=== PATIENT | female | born 1945 | race Caucasian/White ===

== ENCOUNTER 2019-07-30 14:57 | Emergency (ER) | payer MEDICARE, BC, SELFPAY ==
--- NOTE | ~2019-07-30 | XR_ITS ---
EXAMINATION: XR hip LT min 3V w AP pelvis DATE: 07/30/2019 16:41 INDICATION: Generalized left hip pain TECHNIQUE: Anteroposterior view of the pelvis and anteroposterior, frog leg and cross-table lateral v iews of the left hip were obtained. COMPARISON: None. FINDINGS: Alignment is normal. No fracture or suspected avascular necrosis. Bilateral hip joint spaces are norm al. Minimal bilateral sacroiliac osteoarthritis. Anastomotic suture line in the right lower quadrant of the abdomen and several surgical clips in the right pelvis. A few phleboliths in the right hemipel vis. IMPRESSION: 1. Negative left hip. No acute osseous abnormality. Reviewed, dictated and finalized at location A. EL HELPER
--- NOTE | ~2019-07-30 | XR_ITS ---
EXAMINATION: XR knee LT min 4V DATE: 07/30/2019 16:41 INDICATION: Generalized left knee pain TECHNIQUE: Anteroposterior, 2 oblique and crosstable lateral views of the left knee were obtained COMPARISON: 05/28/2015 FINDINGS: Alignment is normal. No fracture. Left knee joint spaces appear normal on nonweightbearing imaging. No joint effusion/layering lipohemarthrosis. Soft tissues are unremarkable. IMPRESSION: 1. Negative left knee radiographs. Reviewed, dictated and finalized at location A. SORTER
--- NOTE | ~2019-07-30 | CT_ITS ---
EXAMINATION: CT lumbar spine wo con DATE: 07/30/2019 16:31 INDICATION: Low back pain post twisting injury. Sharp left leg pain. TECHNIQUE: Computed tomography (CT) of the lumbar spine was performed without intravenous contrast. A utomated exposure control and iterative reconstruction technique were employed. The dose-length produ ct was 370.27 mGy-cm. COMPARISON: None FINDINGS: Mild lumbar dextrocurvature. 2 mm anterolisthesis L4 on L5. Vertebral body heights are normal. No fra cture. Mild to moderate right-sided predominant disc height loss at L4-L5. Mild disc height loss at L 1-L2. Surgical clips along the anterior margin of the right psoas muscle. Paravertebral soft tissues are unremarkable. The following disc levels are specifically discussed: T11-T12: The disc does not extend beyond the endplate margin. There is normal bilateral facet joint o steoarthritis. There is no neural foraminal stenosis. There is no central canal stenosis. T12-L1: Disc is minimally bulging. There is mild bilateral facet joint osteoarthritis. There is no ne ural foraminal stenosis. There is no central canal stenosis. L1-L2: Disc is bulging. There is mild bilateral facet joint osteoarthritis. There is mild bilateral n eural foraminal stenosis. There is mild central canal stenosis. L2-L3: Disc is bulging. There is mild bilateral facet joint osteoarthritis. There is mild bilateral n eural foraminal stenosis. There is mild central canal stenosis. L3-L4: Disc is bulging. There is hypertrophy of the ligamentum flavum. There is mild bilateral facet joint osteoarthritis. There is moderate left and mild right neural foraminal stenosis. There is moder ate central canal stenosis. L4-L5: Disc is bulging There is hypertrophy of the ligamentum flavum. There is severe left and modera te right facet joint osteoarthritis. There is moderate bilateral neural foraminal stenosis. There is moderate to severe central canal stenosis. L5-S1: Disc is bulging. There is mild right and moderate left facet joint osteoarthritis. There is mi ld bilateral neural foraminal stenosis. There is minimal central canal stenosis. IMPRESSION: 1. Moderate lumbar spondylosis. No acute osseous abnormality. Reviewed, dictated and finalized at location A. 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
[2019-07-30 15:01] VITALS: BP 175/82; PULSE 100; RESP 18; TEMP 37.1; O2SAT 100
[2019-07-30] MEDS: ACETAMINOPHEN 500 MG TABLET 1000 MG PO (16:42)
--- NOTE | 2019-07-30 17:08 | ED.LOWEXIN ---
HPI - Extremity Injury (Lower) General Chief Complaint: Extremity Injury, Lower Stated Complaint: think meseret got a pinched nerve Time Seen by Provider: 07/30/19 15:23 Source: patient Mode of arrival: ambulatory Limitations: no limitations History of Present Illness HPI Narrative: This is a 73 year old female that presents to the ER for low back pain x 2 days. Unsure of any certain injury or trauma. Reports she did slip on a rug yesterday, but caught herself and did not fall. Reports the pain radiates down her left leg. Also reports pain in her left hip and left knee. Denies hitting her head, loss of consciousness, decreased ROM, weakness, numbness, or bowel/bladder incontinence. Related Data Home Medications Medication Instructions Recorded Confirmed budesonide PO 07/30/19 lorazepam 07/30/19 omeprazole 07/30/19 oxycodone-acetaminophen 07/30/19 ranitidine HCl 07/30/19 Allergies Allergy/AdvReac Type Severity Reaction Status Date / Time leflunomide Allergy Intermediate HAND Verified 07/30/19 15:04 NUMBNESS Penicillins Allergy Mild HIVES Verified 07/30/19 15:04 adalimumab Allergy Unknown RASH Verified 07/30/19 15:04 azathioprine Allergy Unknown PANCREATITI Verified 07/30/19 15:04 S mercaptopurine Allergy Unknown Blister Verified 07/30/19 16:22 methotrexate Allergy Unknown Hives Verified 07/30/19 16:22 dexamethasone Allergy Swelling Verified 07/30/19 15:45 embrel Allergy Anaphylactic Uncoded 07/30/19 15:45 Shock Review of Systems Review of Systems: Narrative: CONSTITUTIONAL: Denies fever SKIN: Denies rash MUSCULOSKELETAL: Reports back pain, joint pain, and myalgia. NEUROLOGIC: Denies numbness, or weakness. All systems reviewed & are unremarkable except as noted in HPI and below PMFSH Past Medical History Medical History (Updated 07/30/19 @ 17:28 by Gina Grant PA-C) History of Crohn's disease History of hypertension Surgical History Surgical History (Updated 07/30/19 @ 17:17 by Gina Grant PA-C) History of appendectomy History of bilateral tubal ligation Social History Social History (Updated 07/30/19 @ 17:17 by Gina Grant PA-C) Smoking status: Current every day smoker Substance use: never Exam Narrative: Exam Narrative: GENERAL: Well-appearing, well-nourished, and in no acute distress. HEAD: Normocephalic, atraumatic. EYES: EOMI. CHEST: Clear to auscultation. No respiratory distress. No wheezes rales or rhonchi HEART: Regular rate and rhythm. No murmur heard. Normal peripheral pulses. BACK: No midline spinal tenderness EXTREMITIES: Normal range of motion. No edema. Strength equal in bilateral lower extremities (5/5). Normal patellar reflexes bilaterally SKIN: Warm, dry, no rash. NEURO: No focal deficits. Alert and oriented x3. Normal gait PSYCH: Normal mood and affect Course Vital Signs Vital signs: Vital Signs Temperature 98.8 F 07/30/19 15:01 Pulse Rate 100 07/30/19 15:01 Respiratory Rate 18 07/30/19 15:01 Blood Pressure 175/82 H 07/30/19 15:01 Pulse Oximetry 100 07/30/19 15:01 Temperature 98.8 F 07/30/19 15:01 Pulse Rate 100 07/30/19 15:01 Respiratory Rate 18 07/30/19 15:01 Blood Pressure 175/82 H 07/30/19 15:01 Pulse Oximetry 100 07/30/19 15:01 MDM - Extremity Injury (Lower) MDM Narrative Medical decision making narrative: Patient presents the emergency department for low back pain, left hip pain, left knee pain. Reports a possible injury yesterday slipping on her rug. Left hip and pelvis x-ray without acute changes. Left knee x-ray without acute changes. Lumbar spine CT shows moderate lumbar spondylosis, no acute osseous abnormality. Patient does report a history of chronic low back pain for which she takes oxycodone at home. She is neurologically intact. She was instructed to continue her medications as prescribed and follow up with her PCP. She was given warnings to return to the ER Imaging Data Rad
[2019-07-30 17:21] VITALS: TEMP 37.1
== END 2019-07-30 17:37 | disposition home or self-care (01) ==
PROVIDERS: Emergency Provider Emergency Medicine; PCP Family Medicine Adolescent Medicine
DX: M25.552 Pain in left hip (principal); M25.562 Pain in left knee; G89.29 Other chronic pain; M54.5 Low back pain; I10 Essential (primary) hypertension; K50.90 Crohn's disease, unspecified, without complications; F17.200 Nicotine dependence, unspecified, uncomplicated; M47.816 Spondylosis without myelopathy or radiculopathy, lumbar region
CPT/HCPCS: 72131; 73502; 73564; 96372; 99284; A9270; J3360

== ENCOUNTER 2019-08-31 09:57 | Outpatient (CLI) | payer MEDICARE, BC, SELFPAY ==
--- NOTE | ~2019-08-31 | MR_ITS ---
EXAMINATION: MR knee LT wo con DATE: 08/31/2019 11:23 INDICATION: Acute left knee pain. TECHNIQUE: Magnetic resonance imaging (MRI) of the left knee was performed without intravenous contra st. Sequences included axial PD-weighted FS FSE, coronal PD-weighted FSE and PD-weighted FS FSE, sagi ttal PD-weighted FSE, and sagittal T2-weighted FS FSE. COMPARISON: Left knee radiographs 08/31/2019 FINDINGS: Medial compartment: Medial meniscus is normal. Medial compartment cartilage is normal. There is a 9 mm lesion of increase d T2-weighted signal intensity in posterolateral tibial condyle abutting the cartilage that may be a subchondral cyst or intraosseous ganglion. Lateral compartment: Lateral meniscus is normal. Lateral compartment cartilage is normal. Patellofemoral compartment: There is shallow partial-thickness cartilage loss of patellar medial facet with mild subchondral adalgisa a-like marrow signal intensity. There is cartilage surface irregularity of patellar lateral facet. Tr ochlear cartilage is normal. Ligaments and tendons: The anterior and posterior cruciate ligaments are normal. Medial collateral ligament and lateral nasra ateral ligament complex are normal. Patellar tendon is normal. Fluid: There is a small knee joint effusion. There is a small Perry's cyst. There is mild prepatellar and del castillo perficial infrapatellar bursitis. IMPRESSION: 1. Mild patellar chondrosis. 2. Small knee joint effusion. 3. Small Perry's cyst. Reviewed, dictated and finalized at location A.
--- NOTE | ~2019-08-31 | MR_ITS ---
EXAMINATION: MR lumbar spine wo [facility] EXAM DATE: 08/31/2019 11:21 INDICATION: Acute left knee pain, back pain with sciatica. TECHNIQUE: Multi-sequential, multiplanar MR images of the lumbar spine were obtained without contrast . Sagittal T1, T2, T2 fat saturation images. Axial T2 weighted images. There is no prior study for comparison. FINDINGS: There is mild to moderate disc disease L1-2, L2-3 and L4-5, mild at L3-4 and L5-S1. The con us medullaris terminates at the L1/2 level and has normal signal intensity and morphology. Vertebral body heights are maintained. There are no suspicious marrow signal abnormalities. Paraspinal soft ti ssue is unremarkable. There is 2 to 3 mm anterolisthesis L4 on L5. Level by level evaluation: T12-L1: Disc does not extend beyond the endplate margin. Facet arthropathy: Minimal. Neural foraminal stenosis: No stenosis. Central canal stenosis: No stenosis. L1-L2: There is a mild diffuse disc bulge. Facet arthropathy: Mild. Neural foraminal stenosis: No stenosis. Central canal stenosis: No stenosis. L2-L3: There is a mild to moderate diffuse disc bulge. Facet arthropathy: Mild. Neural foraminal stenosis: Mild bilateral. Central canal stenosis: Mild. L3-L4: There is a mild to moderate diffuse disc bulge. Facet arthropathy: Mild to moderate. Neural foraminal stenosis: Mild to moderate left, mild right. Central canal stenosis: Mild to moderate. L4-L5: There is a moderate diffuse disc bulge. Facet arthropathy: Moderate left, mild to moderate right. Neural foraminal stenosis: Moderate bilateral. Central canal stenosis: Moderate. L5-S1: There is a mild diffuse disc bulge. Facet arthropathy: Mild. Neural foraminal stenosis: Mild to moderate bilateral. Central canal stenosis: Mild. IMPRESSION: 1. L4-5 grade 1 anterolisthesis, moderate canal and neural foraminal stenosis. 2. Lesser spondylosis other levels. Reviewed, dictated and finalized at location B.
--- NOTE | ~2019-08-31 | XR_ITS ---
EXAMINATION: XR knee LT 3V DATE: 08/31/2019 11:24 INDICATION: Left knee pain. TECHNIQUE: 3 views of left knee were obtained. COMPARISON: Left knee radiographs 07/30/2019 FINDINGS: Bone alignment is normal. No fracture. Joint spaces are well maintained. There is no knee j oint effusion. IMPRESSION: 1. Normal left knee. Reviewed, dictated and finalized at location A. IMPRESSION: 1. Normal left knee.
--- NOTE | ~2019-08-31 | XR_ITS ---
XR lumbar spine min 4V DATE: 08/31/2019 11:24 INDICATION: Low back pain. Left knee pain. No injury. TECHNIQUE: AP, lateral, coned lateral lumbosacral and bilateral oblique views COMPARISON: 03/18/[address] lumbar spine FINDINGS: Mild dextroscoliosis. Diffuse osteopenia. No fracture or bone destruction is evident. The included lower thoracic and lumbar pedicles are intac t. There is moderate degenerative disease at L1-2, L2-3, L4-5. There is degenerative change at the apophyseal joints with associated grade 1 anterolisthesis at L4-5 . The sacroiliac joints appear normal. Multiple surgical clips and radiopaque bowel sutures overlie the right lower abdomen. IMPRESSION: Degenerative changes Diffuse osteopenia Reviewed, dictated and finalized at location A.
== END 2019-08-31 09:58 | disposition home or self-care (01) ==
PROVIDERS: PCP Family Medicine Adolescent Medicine; Visit Provider Neurological Surgery
DX: M54.9 Dorsalgia, unspecified (principal); M54.30 Sciatica, unspecified side; M25.552 Pain in left hip; M22.2X2 Patellofemoral disorders, left knee; M25.462 Effusion, left knee; M71.22 Synovial cyst of popliteal space [Baker], left knee; M85.88 Other specified disorders of bone density and structure, other site; M43.16 Spondylolisthesis, lumbar region; M48.061 Spinal stenosis, lumbar region without neurogenic claudication; M47.816 Spondylosis without myelopathy or radiculopathy, lumbar region
CPT/HCPCS: 72110; 72148; 73562; 73721

== ENCOUNTER 2020-02-22 14:17 | Outpatient (CLI) | payer MEDICARE, BC, SELFPAY ==
--- NOTE | ~2020-02-22 | XR_ITS ---
EXAMINATION: XR lumbar spine min 4V DATE: 02/22/2020 14:38 INDICATION: Back pain with sciatica TECHNIQUE: Anteroposterior and lateral views in neutral, flexion, extension of the lumbar spine were obtained. COMPARISON: 08/31/2019 FINDINGS: There are 3 mm of anterolisthesis of L4 on L5. No laxity is present with flexion or extensi on. There is unchanged moderate loss of intervertebral disc space height throughout the lumbar spine. No fracture is identified. The vertebral body heights are maintained. Small degenerative osteophytes project from the anterior endplates of multiple vertebral bodies. There is mild facet osteoarthritis of the lower lumbar spine. Surgical clips are present in the right pelvis. Pelvic phleboliths are al so noted. There is calcified atherosclerosis. IMPRESSION: 1. Mild lumbar spondylosis without acute findings or significant interval change. Reviewed, dictated and finalized at location A. IMPRESSION: 1. Mild lumbar spondylosis without acute findings or significant interval miguel duenas
== END 2020-02-22 14:18 | disposition home or self-care (01) ==
LOC: ANHIMG 14:24
PROVIDERS: PCP Family Medicine Adolescent Medicine; Visit Provider Neurological Surgery
DX: M54.30 Sciatica, unspecified side (principal); M47.896 Other spondylosis, lumbar region
CPT/HCPCS: 72110

== ENCOUNTER 2020-03-14 16:00 | Outpatient (CLI) | payer MEDICARE, BC, SELFPAY ==
--- NOTE | ~2020-03-14 | XR_ITS ---
XR hip LT min 2V 03/14/2020 16:38 INDICATION: Left hip pain for 2-3 months PROCEDURE: 3 views left hip COMPARISON: 07/30/2019 FINDINGS: Fracture, dislocation or subluxation is not identified. The soft tissues appear within norm al limits. No foreign bodies are identified. IMPRESSION: 1: NO ACUTE BONE OR JOINT ABNORMALITY IDENTIFIED. Reviewed, dictated and finalized at location A.
== END 2020-03-14 16:01 | disposition home or self-care (01) ==
PROVIDERS: PCP Family Medicine Adolescent Medicine; Visit Provider Family Medicine Adolescent Medicine
DX: M25.552 Pain in left hip (principal)
CPT/HCPCS: 73502

== ENCOUNTER 2020-05-08 13:27 | Outpatient (CLI) | payer MEDICARE, BC, SELFPAY ==
--- NOTE | ~2020-05-08 | MR_ITS ---
EXAMINATION: MR femur LT wo con DATE: 05/08/2020 15:25 INDICATION: Left thigh pain TECHNIQUE: Magnetic resonance imaging (MRI) of the left thigh was performed without intravenous contr ast. Sequences included axial, sagittal and coronal T1-weighted FSE and axial, sagittal and coronal fluid sensitive FSE STIR. The contralateral right thigh is included on the coronal images. COMPARISON: None. FINDINGS: Bone alignment is normal with normal marrow signal throughout. No reactive edema, fracture or patholo gic marrow replacing process. No hip or knee joint effusions on either the left or right. Muscular si gnal appears within normal limits throughout both thighs accounting for some artifact related to like ly field inhomogeneity affects both the signal in the musculature skin and subcutaneous fat at the an terolateral aspect of the mid to distal left thigh. No asymmetric muscular atrophy in either thigh. T he tendons and neurovascular structures in the left thigh appear unremarkable. No abnormal mass or fl uid collections identified. No pathologically enlarged lower pelvic or inguinal lymphadenopathy. Blad mary lou and uterus are unremarkable. IMPRESSION: 1. Unremarkable MRI of the left thigh. No etiology identified for reported left thigh pain. Reviewed, dictated and finalized at location . 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
== END 2020-05-08 13:28 | disposition home or self-care (01) ==
PROVIDERS: PCP Family Medicine Adolescent Medicine
DX: M79.652 Pain in left thigh (principal)
CPT/HCPCS: 73721

== ENCOUNTER 2020-10-02 08:51 | Outpatient (CLI) | payer MEDICARE, BC, SELFPAY | END 2020-10-02 08:52 | disposition home or self-care (01) | LOC: ANHCOVIDVC 08:52 | PROVIDERS: PCP Family Medicine Adolescent Medicine | DX: Z23 Encounter for immunization (principal) | CPT/HCPCS: 0001A; 91300 ==

== ENCOUNTER 2020-10-23 09:05 | Outpatient (CLI) | payer MEDICARE, BC, SELFPAY | END 2020-10-23 09:06 | disposition home or self-care (01) | LOC: ANHCOVIDVC 09:05 | PROVIDERS: PCP Family Medicine Adolescent Medicine | DX: Z23 Encounter for immunization (principal) | CPT/HCPCS: 0002A; 91300 ==

== ENCOUNTER → 2020-11-08 14:07 | Outpatient (CLI) | payer MEDICARE, BC, SELFPAY ==
--- NOTE | ~2020-11-08 | XR_ITS ---
XR hand RT min 3V DATE: 11/08/2020 14:20 INDICATION: Fall. Pain at fourth and fifth digits TECHNIQUE: 3 views of right hand COMPARISON: 02/07/2018 right hand FINDINGS: There is a linear oblique virtually nondisplaced recent fracture at the metaphysis of the f ourth metacarpal bone. Diffuse osteopenia. Osteoarthritic change at the interphalangeal joint of the first digit. No erosive change. No perioste al reaction or bone destruction. IMPRESSION: Fourth metacarpal virtually nondisplaced metaphyseal fracture Reviewed, dictated and finalized at location B.
== END ==
PROVIDERS: PCP Family Medicine Adolescent Medicine; Visit Provider Family Medicine Adolescent Medicine
DX: M79.644 Pain in right finger(s) (principal)
CPT/HCPCS: 73130

== ENCOUNTER 2020-11-09 14:22 | Emergency (ER) | payer MEDICARE, BC, SELFPAY ==
[2020-11-09 14:43] VITALS: BP 167/66; PULSE 81; RESP 12; TEMP 37.3; O2SAT 100
[2020-11-09 14:54] VITALS: BP 167/66; PULSE 81; RESP 12; TEMP 37.3; O2SAT 100
--- NOTE | 2020-11-09 15:08 | ED.UPPEXIN ---
HPI - Extremity Injury (Upper) General Chief Complaint: Extremity Injury, Upper Stated Complaint: R HAND INJURY Time Seen by Provider: 11/09/20 14:57 Source: patient and RN notes reviewed Mode of arrival: ambulatory Limitations: no limitations History of Present Illness HPI narrative: Patient presents today complaining of a right hand injury that occurred yesterday morning at 10 AM. She fell as she was trying to run to the restroom at home after tripping on her carpet. She called her PCPs office, and x-rays were ordered around 1 PM. She is done at [facility], but her PCPs office closed yesterday at 2 PM and she did not receive the results. States her pain is worsening and she wanted to come in today for evaluation. She currently rates her pain 5/10. She has been taking her scheduled Percocet at home with some relief. She is also been heaving the hand wrapped and applying ice. Reports some intermittent tingling in the palm and dorsum of the hand as well. MD complaint: injury to: right and hand Related Data Home Medications Medication Instructions Recorded Confirmed budesonide 3 mg PO DAILY 07/30/19 11/09/20 lorazepam 1 mg PO HS 07/30/19 11/09/20 omeprazole 20 mg PO DAILY 07/30/19 oxycodone-acetaminophen 1 tablet PO QID PRN 07/30/19 11/09/20 ranitidine HCl 150 mg 07/30/19 biotin mcg PO 11/09/20 glucosamine enuc-tlcjq-3-vit E cap PO 11/09/20 lisinopril 11/09/20 Allergies Allergy/AdvReac Type Severity Reaction Status Date / Time leflunomide Allergy Intermediate HAND Verified 11/09/20 14:49 NUMBNESS Penicillins Allergy Mild HIVES Verified 11/09/20 14:49 adalimumab Allergy Unknown RASH Verified 11/09/20 14:49 azathioprine Allergy Unknown PANCREATITI Verified 11/09/20 14:49 S mercaptopurine Allergy Unknown Blister Verified 11/09/20 14:49 methotrexate Allergy Unknown Hives Verified 11/09/20 14:49 dexamethasone Allergy Swelling Verified 11/09/20 14:49 embrel Allergy Anaphylactic Uncoded 11/09/20 14:49 Shock Review of Systems Review of Systems: Narrative: CONSTITUTIONAL: Denies body aches, fever, chills, or sweats. EYES: Denies visual changes, redness, or discharge. ENT: Denies rhinorrhea, congestion, sore throat, or otalgia. CARDIOVASCULAR: Denies chest pain, palpitations, or edema. RESPIRATORY: Denies cough or dyspnea. GASTROINTESTINAL: Denies abdominal pain, nausea, vomiting, or diarrhea. GENITOURINARY: Denies dysuria or hematuria. SKIN: Denies rash, itching, or wounds. MUSCULOSKELETAL: Denies back pain, or myalgia. + Right hand injury NEUROLOGIC: Denies headache, numbness, tingling, or weakness. PSYCH: Denies depression or anxiety. [facility] Past Medical History Medical History (Updated 11/09/20 @ 15:19 by Anabel Vital, [facility], ) History of Crohn's disease History of hypertension Surgical History Surgical History (Updated 07/30/19 @ 17:17 by Gina Grant PA-C) History of appendectomy History of bilateral tubal ligation Social History Social History (Updated 07/30/19 @ 17:17 by Gina Grant PA-C) Smoking status: Current every day smoker Substance use: never Comments At time of signature, I have reviewed and agree with nursing past medical, surgical, social and family history unless otherwise noted. Please see nursing chart for further information. There is no relevant family history pertinent to the presenting complaint Exam Narrative: Exam Narrative: GENERAL: Well-appearing, well-nourished, and in no acute distress. HEAD: Normocephalic, atraumatic. EYES: EOMI. No redness or drainage. Conjunctivae normal. ENT: Mucous membranes pink and moist. NECK: Normal AROM. CHEST: No respiratory distress. EXTREMITIES: Right hand: Mild to moderate ecchymosis to the dorsum of the hand with mild edema. Tenderness overlying the base of metacarpals 3 through 5. Distal sensation intact. Capillary refill normal. Radial pulse normal. No snuffbox tenderness. Limited r
== END 2020-11-09 15:38 | disposition home or self-care (01) ==
PROVIDERS: Emergency Provider Nurse Practitioner; PCP Family Medicine Adolescent Medicine
DX: S62.344A Nondisplaced fracture of base of fourth metacarpal bone, right hand, initial encounter for closed fracture (principal); W18.09XA Striking against other object with subsequent fall, initial encounter; Y93.02 Activity, running; K50.90 Crohn's disease, unspecified, without complications; I10 Essential (primary) hypertension; F17.200 Nicotine dependence, unspecified, uncomplicated
CPT/HCPCS: 29125; 99212; A4565; G0463

== ENCOUNTER → 2020-12-02 14:10 | Outpatient (CLI) | payer MEDICARE, BC, SELFPAY ==
--- NOTE | ~2020-12-02 | XR_ITS ---
XR hand RT min 3V DATE: 12/02/2020 14:55 INDICATION: Fracture of right fourth metacarpal TECHNIQUE: 3 views COMPARISON: 11/08/2020 right hand FINDINGS: There is no interval change in position or alignment at the fracture at the junction of the base and proximal shaft of the fourth metacarpal bone since 11/08/2020. There is mild increased densi ty at the fracture site which may be related to the bone formation and/or mild impaction at the fract ure site. No other fracture or dislocation is evident. Diffuse osteopenia. Osteoarthritic changes are noted at the interphalangeal joint of the first digit and some of the othe r interphalangeal joints. IMPRESSION: No significant change in position or alignment at the fourth metacarpal fracture since ; limited new bone formation Reviewed, dictated and finalized at location A. IMPRESSION: No significant change in position or alignment at the fourth metaca rpal fracture since 11/08/2020; limited new bone formation
== END ==
PROVIDERS: PCP Family Medicine Adolescent Medicine; Visit Provider Family Medicine Adolescent Medicine
DX: S62.304A Unspecified fracture of fourth metacarpal bone, right hand, initial encounter for closed fracture (principal)
CPT/HCPCS: 73130

== ENCOUNTER → 2020-12-11 08:53 | Outpatient (CLI) | payer MEDICARE, BC, SELFPAY ==
--- NOTE | ~2020-12-11 | MM_ITS ---
EXAMINATION: MM diagnostic ani BI w [facility] HISTORY: Right breast lump, diminishing in size following recent fall TECHNIQUE: Additional 3-D tomosynthesis images of were performed and synthetic 2-D images were genera annmarie. CAD analysis was submitted and interpreted. COMPARISON: 04/22/2018, 03/18/2012 BREAST PARENCHYMAL COMPOSITION: There are scattered areas of fibroglandular density. FINDINGS: No suspicious mass or architectural distortion, malignant calcification, skin thickening or retraction or significant new or developing density is detected. IMPRESSION: 1. No mammographic evidence of malignancy 2. Routine mammographic screening is recommended BI-RADS Category 1: Negative Reviewed, dictated and finalized at location A.
== END ==
PROVIDERS: PCP Family Medicine Adolescent Medicine; Visit Provider Family Medicine Adolescent Medicine
DX: N63.15 Unspecified lump in the right breast, overlapping quadrants (principal)
CPT/HCPCS: 77062; 77066; G0279

== ENCOUNTER → 2022-08-25 12:11 | Outpatient (CLI) | payer MEDICARE, BC, SELFPAY ==
--- NOTE | ~2022-08-25 | MM_ITS ---
EXAMINATION: MM screening [facility] BI w [facility] HISTORY: Screening mammogram TECHNIQUE: Craniocaudal and mediolateral oblique 3-D tomosynthesis images were obtained and synthetic 2-D images were generated. CAD analysis was submitted and interpreted. COMPARISON: 12/11/2020, 04/22/2018, 03/18/2012 BREAST PARENCHYMAL COMPOSITION: There are scattered areas of fibroglandular density. FINDINGS: No suspicious mass, calcification, or architectural distortion are identified in either marisa ast to suggest malignancy. There has been no suspicious interval change. IMPRESSION: 1. No mammographic evidence of malignancy. 2. Recommend routine screening mammography in one year. BI-RADS Category 1: Negative Reviewed, dictated and finalized at location A. 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
== END ==
PROVIDERS: PCP Family Medicine Adolescent Medicine; Visit Provider Family Medicine Adolescent Medicine
DX: Z12.31 Encounter for screening mammogram for malignant neoplasm of breast (principal)
CPT/HCPCS: 77063; 77067

== ENCOUNTER 2022-11-11 12:24 | Outpatient (CLI) | payer MEDICARE, BC, SELFPAY ==
--- NOTE | 2022-11-11 12:38 | ECG_ITS ---
Measurements Intervals [place] Rate: 77 P: 56 [place]: 151 QRS: 11 QRSD: 72 T: 52 QT: 349 QTc: 396 Interpretive Statements SINUS RHYTHM WITH SINUS ARRHYTHMIA LOW QRS VOLTAGE IN PRECORDIAL LEADS BASELINE ARTIFACT- I, II, III, AVR, AVL, AVF BORDERLINE ECG NO PREVIOUS ECG AVAILABLE FOR COMPARISON Electronically Signed On 11-11-2022 13:15:55 CDT by Brayden Cheung D.O.
[2022-11-11 13:21] LABS: Hematocrit 39.4 % (37.0-47.0); Hemoglobin 12.4 g/dL (12.0-15.0); Mean Corpuscular HGB Conc 31.5 g/dl (32-36); Mean Corpuscular Hemoglobin 31.6 pg (26-34); Mean Corpuscular Volume 100.5 fl (80-100); Platelet Count Result 421 k/mm3 (150-375); Red Blood Count 3.92 M/mm3 (4.2-5.4); Red Cell Distribution Width 13.3 % (11.5-14.5); White Blood Count 13.1 K/mm3 (4.5-10.0)
[2022-11-11 13:33] LABS: Anion Gap 7 mmol/L (8-16); Blood Urea Nitrogen 5 mg/dL (7-17); Carbon Dioxide 31 mmol/L (22-30); Chloride 100 mmol/L (98-107); Estimated Glomerular Filt Rate > 60; Glucose 92 mg/dL (65-110); Potassium 3.8 mmol/L (3.4-5.0); Sodium 138 mmol/L (137-145)
[2022-11-11 13:34] LABS: Appearance Urine Clear (Clear); Bilirubin Urine Negative (Negative); Blood Urine Negative (Negative); Color Urine Yellow (Yellow); Glucose Urine UA Negative (Negative); Ketones Urine Negative (Negative); Leukocyte Esterase Ur Negative LEU/UL (Negative); Nitrate Urine Negative (Negative); Protein Urine Negative (Negative); Specific Grav Ur 1.004 (1.001-1.035); Urobilinogen Urine 0.2 mg/dL (<2.0)
[2022-11-11 13:36] LABS: Add Urine Microscopic? NO
[2022-11-11 13:39] LABS: INR 0.9
[2022-11-11 13:42] LABS: Partial Thromboplastin Time 29.8 SECONDS (22.3-36.8)
== END 2022-11-11 12:25 | disposition home or self-care (01) ==
LOC: ANHSURGERY 12:27
PROVIDERS: PCP Family Medicine Adolescent Medicine; Visit Provider Neurological Surgery
DX: M48.062 Spinal stenosis, lumbar region with neurogenic claudication (principal); Z01.818 Encounter for other preprocedural examination
CPT/HCPCS: 36415; 80048; 81003; 85027; 85610; 85730; 93005

== ENCOUNTER 2022-11-17 01:48 | Day surgery (SDC) | payer MEDICARE, BC, SELFPAY ==
--- NOTE | 2022-11-06 10:35 | PC.NURSE ---
Report to the Outpatient Waiting Room, entrance under the green pavilion located off [facility], at time ___929____ on date ___11/17/22____. Planned Procedure Time: ___1130 . Time changes happen often and if your time is changed the preop area will call you the afternoon before. - You and your visitor will be asked to self-screen and do not enter if you have any COVID symptoms. - A mask is optional within the hospital at this time. Patients may have clear liquids (water, carbonated beverages, clear teas, apple juice) until 3 hours prior to surgery with a maximum of 20 ounces. - No food from midnight until time of surgery - Infants may have breast milk until 4 hours before surgery, infant formula 6 hours prior to surgery. - Children will be allowed to drink immediately following surgery. If applicable, please bring a bottle or sippy cup to assist with drinking. Juice, water, soda, and popsicles are readily available. For infants on formula, please bring formula the day of surgery. Pacifiers are allowed. Take the following medications with a SIP of water the morning of surgery: ___MAY TAKE OXYCODONE IF NEEDED FOR PAIN DO NOT STOP ANY OF YOUR OTHER PRESCRIPTION MEDICATIONS PRIOR TO SURGERY ?EXCEPT THE FOLLOWING Medications to discontinue per physician ___ALL VITAMINS/SUPPLEMENTS 3 DAYS PRE OP.LAST DOSE 11/13/22 Please no make-up, nail syriac, hairspray, perfume, deodorant, or body powder the day of surgery. No jewelry (including any body piercings) or valuables the day of surgery, leave them at home. Please take a shower or bath the night before, or the morning of, surgery with an antibacterial soap. Wear comfortable, loose fitting clothing. Children are encouraged to wear pajamas. - Jewelry must be removed prior to entering the operating room. Rings and piercings that are not removed may be cut off. - The hospital will not accept responsibility for valuables. - Please leave all valuables, including medications, at home the day of surgery. If you are going home after surgery, a licensed compactor driver must drive you home. - NO public transportation without another adult if you receive anesthesia. - We recommend that an adult stay with you for 24 hours following discharge. - We also recommend that you do not drive, make important decision, drink alcoholic beverages, or take any drugs that were not prescribed by your health care provider for at least 24 hours after your discharge time. For Pediatric surgeries, we recommend two adults accompany the child home. Follow any additional instructions given to you from your surgeon. If you or anyone in your household have experienced Covid symptoms in the past week, please notify your surgeon or the nurse liaison at the phone number below for possible testing. Telephone instructions given to __PATIENT and asked if any additional questions and then verbalized understanding. Patient advised to call surgeon office or pre surgery nurse liaison [phone] if any additional questions.
[2022-11-06 10:47] VITALS: BMI 23.8
[2022-11-17] VITALS (14 sets, daily range): BP systolic 118–168; BP diastolic 40–67; PULSE 67–97; RESP 10–20; TEMP 36.1–37.5; O2SAT 94–100
--- NOTE | ~2022-11-17 | XR_ITS ---
XR fluoroscopy no charge Pain management procedure TECHNIQUE: Fluoroscopy used during foraminotomy performed by [Alonso Riggs MD] on 3. 2 seconds of fluoroscopy with 1 images captured. FINDINGS: Correlate with procedure note. IMPRESSION: Fluoroscopy used during foraminotomy. Reviewed, dictated and finalized at location []
[2022-11-17] MEDS: LACTATED RINGERS 1,000 ML 30 ML IV CONT ×2 (08:45→12:50)
--- NOTE | 2022-11-17 09:26 | WPDANESEPPF ---
Anes - Initial Pre Proc Eval Procedure: Operation Date: 11/17/22 10:00 Proposed Procedures p Right L3-4 Hemilaminectomy, Right L4-5, L5-S1 Far Lateral Foraminotomy - Alonso Riggs MD Date/Time: 11/17/22 09:26 Surgeon: Alonso Riggs MD Pre Op Diagnosis: L3-4,L4-5 stenosis,right L4-5, L5-S1 neural narrow Patient Data Age: 76 Gender: F Height: 1.52 m Weight: 53.45 kg Last Vital Signs Temp 36.1 C L 11/17/22 08:50 Pulse 90 11/17/22 08:50 Resp 20 11/17/22 08:50 BP 154/59 H 11/17/22 08:50 Pulse Ox 98 11/17/22 08:50 O2 Del Method Room Air 11/17/22 08:50 Allergies Allergy/AdvReac Type Severity Reaction Status Date / Time leflunomide Allergy Intermediate HAND Verified 11/06/22 10:25 NUMBNESS Penicillins Allergy Mild HIVES Verified 11/06/22 10:25 adalimumab Allergy Unknown RASH Verified 11/06/22 10:25 azathioprine Allergy Unknown PANCREATITI Verified 11/06/22 10:25 S mercaptopurine Allergy Unknown Blister Verified 11/06/22 10:25 methotrexate Allergy Unknown Hives Verified 11/06/22 10:25 dexamethasone Allergy Swelling Verified 11/06/22 10:25 etanercept [From Enbrel] Allergy Anaphylactic Verified 11/17/22 07:59 Shock atorvastatin AdvReac Intermediate myalgias Verified 11/06/22 10:25 Opioids - Morphine Analogues AdvReac Intermediate Vomiting Verified 11/06/22 10:25 egg AdvReac Abdominal Verified 11/17/22 08:27 Pain Home Medications Medication Instructions Recorded Confirmed Type lorazepam 1 mg tablet 1 mg PO HS #90 tabs 06/29/22 11/17/22 Rx famotidine 10 mg tablet 10 mg PO DAILY 08/03/22 11/17/22 History (Zantac-360 (famotidine)) ddmilnuw-plj-sbpfz acid 200 1 tablet PO DAILY 08/03/22 11/17/22 History mcg-collagen, hydrolyzed 25 mg chew tablet (Women's Multivitamin with Collagen) lisinopril 20 mg tablet 20 mg PO DAILY #90 tabs 10/30/22 11/17/22 Rx oxycodone-acetaminophen 10 mg-325 1 tablet PO Q6H #120 tabs 11/02/22 11/17/22 Rx mg tablet rosuvastatin 5 mg tablet 5 mg PO DAILY #90 tabs 11/05/22 11/17/22 Rx vitamin C 50 mg-biotin 1,250 mcg 1 tablet PO DAILY 11/06/22 11/17/22 History chewable tablet (Oxqx-Sexs-Ahxme (vit C-biotin)) Patient hx anesthesia problems: none Family hx anesthesia problems: none Results Review: All pre-operative results and documents have been reviewed as part of the pre-operative evaluation. [facility] Past Medical History Medical History Abnormal colonoscopy 09/04 ileitis Allergies Arthritis History of Crohn's disease History of hypertension Osteoporosis Skin cancer Surgical History Surgical History History of abdominal surgery Adhesiolysis History of appendectomy (~1956) History of bilateral tubal ligation (~1974) History of partial colectomy (~2010) Family History Family History Father Heart disease Diabetes mellitus Hypertension Heart problem Sibling Acute myocardial infarction Heart disease Social History Social History Social History: Pt has had 3 pregnancies, 1 miscarriage. Date of last mammogram was August of 2022. Recently . Smoking packs per day: 1 Smoking cigarettes per day: 20.0 Years smoked: 30 Smoking pack-years: 30.00 Smoking status: Current every day smoker Tobacco type: cigarettes Second hand tobacco smoke exposure: No Alcohol intake: current Alcohol use details: ONE DRINK PER MONTH Substance use: never Substance use type: does not use Lack of Transportation: No Living arrangements: alone Occupation/Education: retired Gender identity (if verbalized by the patient): Female Sexual Orientation (if Verbalized by the Patient): Straight or Heterosexual Spiritual care concerns: No Agree to blood products: Y
--- NOTE | 2022-11-17 10:19 | PM.IMHP ---
H&P: HPI History of Present Illness Date/Time: 11/17/22 10:19 Chief Complaint: Back and right leg pain Narrative: Izzy is a 76-year-old female with back and right leg pain related to pathology at L3-4, L4-5 and L5-S1 who presents for right L3-4 hemilaminectomy and right L4-5 and L5-S1 far lateral foraminotomies. She has not changed appreciably since we last saw her. She has occasional dermatomal numbness but no specific muscle group weakness. She is not having bowel or bladder difficulty. Review of Systems Review of Systems: Patient denies shortness of breath, cough, fever, chills, nausea, vomiting, weight loss, weight gain, chest pain, dysuria. She has back and leg pain as above. Her review systems is otherwise negative on 12 systems except as noted elsewhere. [facility] Past Medical History Medical History Abnormal colonoscopy 09/04 ileitis Allergies Arthritis History of Crohn's disease History of hypertension Osteoporosis Skin cancer Surgical History Surgical History History of abdominal surgery Adhesiolysis History of appendectomy (~1956) History of bilateral tubal ligation (~1974) History of partial colectomy (~2010) Family History Family History Father Heart disease Diabetes mellitus Hypertension Heart problem Sibling Acute myocardial infarction Heart disease Social History Social History Social History: Pt has had 3 pregnancies, 1 miscarriage. Date of last mammogram was August of 2022. Recently . Smoking packs per day: 1 Smoking cigarettes per day: 20.0 Years smoked: 30 Smoking pack-years: 30.00 Smoking status: Current every day smoker Tobacco type: cigarettes Second hand tobacco smoke exposure: No Alcohol intake: current Alcohol use details: ONE DRINK PER MONTH Substance use: never Substance use type: does not use Lack of Transportation: No Living arrangements: alone Occupation/Education: retired Gender identity (if verbalized by the patient): Female Sexual Orientation (if Verbalized by the Patient): Straight or Heterosexual Spiritual care concerns: No Agree to blood products: Yes Meds Home Medications and Allergies Home Medications Medication Instructions Recorded Confirmed Type lorazepam 1 mg tablet 1 mg PO HS #90 tabs 06/29/22 11/17/22 Rx famotidine 10 mg tablet 10 mg PO DAILY 08/03/22 11/17/22 History (Zantac-360 (famotidine)) lcvhwyoy-hxt-pefpg acid 200 1 tablet PO DAILY 08/03/22 11/17/22 History mcg-collagen, hydrolyzed 25 mg chew tablet (Women's Multivitamin with Collagen) lisinopril 20 mg tablet 20 mg PO DAILY #90 tabs 10/30/22 11/17/22 Rx oxycodone-acetaminophen 10 mg-325 1 tablet PO Q6H #120 tabs 11/02/22 11/17/22 Rx mg tablet rosuvastatin 5 mg tablet 5 mg PO DAILY #90 tabs 11/05/22 11/17/22 Rx vitamin C 50 mg-biotin 1,250 mcg 1 tablet PO DAILY 11/06/22 11/17/22 History chewable tablet (Dpbj-Hufz-Xuehl (vit C-biotin)) Allergies Allergy/AdvReac Type Severity Reaction Status Date / Time leflunomide Allergy Intermediate HAND Verified 11/06/22 10:25 NUMBNESS Penicillins Allergy Mild HIVES Verified 11/06/22 10:25 adalimumab Allergy Unknown RASH Verified 11/06/22 10:25 azathioprine Allergy Unknown PANCREATITI Verified 11/06/22 10:25 S mercaptopurine Allergy Unknown Blister Verified 11/06/22 10:25 methotrexate Allergy Unknown Hives Verified 11/06/22 10:25 dexamethasone Allergy Swelling Verified 11/06/22 10:25 etanercept [From Enbrel] Allergy Anaphylactic Verified 11/17/22 07:59 Shock atorvastatin AdvReac Intermediate myalgias Verified 11/06/22 10:25 Opioids - Morphine Analogues AdvReac Intermediate Vomiting Verified 11/06/22 10:25 egg AdvReac Abdominal Verifi
--- NOTE | 2022-11-17 10:22 | WPDHPUPDATE1 ---
History and Physical Update Update Date/Time: 11/17/22 10:22 History and Physical has been reviewed, including an updated exam of the patient. There are NO changes in the patient's condition. Risks, benefits, and alternatives have been discussed and questions answered. Patient agrees to proceed with procedure.
[2022-11-17] MEDS: ceFAZolin 2 GM/D5W 50 ML 2 GM/50 ML BAG IVPB (10:52)
[2022-11-17] MEDS: LIDO 1%/EPINEPHRINE 1:100,000 20 ML VIAL 10 ML INFILTRATE (11:16)
[2022-11-17] MEDS: fentaNYL CITRATE INJ (*CRX) 100 MCG/2 ML VIAL 25 MCG IV PUSH ×12 (13:07→14:26)
[2022-11-17] MEDS: oxyCODONE/ACETAMINOPHEN (*CRX) 10-325 MG TABLET 1 TAB PO ×2 (14:57→20:51)
[2022-11-17] MEDS: CYCLOBENZAPRINE HCL 5 MG TABLET PO (18:22)
[2022-11-17] MEDS: LORazepam (*CRX) 1 MG TABLET PO (20:54)
[2022-11-18 00:35] VITALS: BP 139/52; PULSE 92; RESP 16; TEMP 37.8; O2SAT 95
[2022-11-18] MEDS: oxyCODONE/ACETAMINOPHEN (*CRX) 10-325 MG TABLET 1 TAB PO ×3 (03:10→11:55)
[2022-11-18 04:03] VITALS: BP 117/49; PULSE 86; RESP 18; TEMP 36.4; O2SAT 97
[2022-11-18 04:08] VITALS: BP 117/49; PULSE 86; RESP 18; TEMP 36.4; O2SAT 97
[2022-11-18] MEDS: lisinopriL 20 MG TABLET PO (08:09)
[2022-11-18] MEDS: FAMOTIDINE 10 MG TABLET PO (08:09)
[2022-11-18] MEDS: THERAPEUTIC MULTIVITAMINS/MINERALS TAB (*BKC) 1 TABLET PO (08:09)
[2022-11-18] MEDS: ROSUVASTATIN 5 MG TABLET PO (08:09)
[2022-11-18 10:00] VITALS: BP 120/58; PULSE 84; RESP 17; TEMP 36.4; O2SAT 98
[2022-11-18] MEDS: CYCLOBENZAPRINE HCL 5 MG TABLET PO (10:15)
[2022-11-18 12:30] VITALS: BP 122/60; PULSE 82; RESP 16; TEMP 36.4; O2SAT 98
--- NOTE | 2022-11-18 13:14 | PC.NURSE ---
Received discharge orders per Dr. Torres. Spoke with her office to clarify if pt needed to be seen by before discharge. They said she didn't need to be seen and patient was okay to be discharged.
--- NOTE | 2022-11-18 13:37 | PCPTNOTE ---
On 11/18/22, the student, [Ana Ross], provided care and completed [facility] documentation on this patient. I have reviewed the student's documentation and agree with the findings.
--- NOTE | 2022-11-18 14:42 | WPDANESPN ---
Anes - Prog Note Post-Op Date/Time: 11/18/22 14:42 Cardiovascular status: normal Respiratory status: normal Airway patency: baseline Mental status: baseline Post-Op hydration status: normal Vital Signs: Last Vital Signs Temp 97.6 F 11/18/22 12:30 Pulse 82 11/18/22 12:30 Resp 16 11/18/22 12:30 BP 122/60 11/18/22 12:30 Pulse Ox 98 11/18/22 12:30 O2 Del Method Room Air 11/18/22 08:36 O2 Flow Rate 10 11/17/22 13:05 Pain Score (VAS): 5 I/O: Intake & Output 11/17/22 11/18/22 11/18/22 23:59 07:59 15:59 Intake Total 120 270 Balance 120 270 Post-procedural complaints: none Patient Feedback: Patient satisfied with anesthetic care.
--- NOTE | 2022-11-24 21:59 | P.OP_ITS ---
Procedure Note - Detailed Date of Procedure 11/17/22 Pre-op Diagnosis L3-4,L4-5 stenosis,right L4-5, L5-S1 neural narrow Post-op Diagnosis Same Procedure Performed Right L3-4 hemilaminectomy and right L4-5 and L5-S1 far lateral foraminotomies Surgeon Alonso Riggs MD Anesthesia General Description of Procedure patient was brought to the operating room in the supine position, was sedated, intubated and placed her general anesthesia routine fashion. She was then turned into the prone position on a Markos frame. The of operation are back was examined, marked for incision, prepped and draped in routine sterile fashion. Incision was marked over the L3 through L5 spinous processes in the midline. This area was injected with 0.5% lidocaine with [id number] epinephrine. Intravenous antibiotics given prior to incision. Incision was made with a 10 blade scalpel down to the lumbodorsal fascia. A subperiosteal dissection muscles soft tissue away from spinous process and lamina on the right from L3-5 was performed with a subperiosteal elevator and Bovie cautery. A verifying x- rays obtained to verify the level of operation. On the right at L3-4 a Midas Rodrigo drill was used to perform a hemilaminectomy and medial facetectomy. Under microscopy the yellow ligament was lifted removed piecemeal using Kerrison punches. Overgrown ligament was lifted and removed using a curved curette and Kerrison punches. This was done until a dental instrument could be placed in the lateral epidural space to confirm lack of compression. On the right at L4-5 and L5-S1 Midas-Rodrigo drill was used to resect the lateral pars and facet until a soft contents of the foramina were encountered. Foraminotomy procedures were performed identically to each level. This was done by lifting the yellow ligament and removing it piecemeal using Kerrison punches. The foramen was palpated using a nerve hook. Kerrison pun ches and curved curettes were used to lift remove additional bone and ligament proximally and distally. The nerve root was then reflected superiorly exposing the ligament below. The ligament was entered with a 11 blade scalpel. An Edy curette, curved curette and Kinney rongeur were used to push through and remove fragments of herniated disc from beneath the nerves. A dental instrument was placed proximally distally to confirm lack of compression. The wound was then copiously irrigated with bacitracin irrigation all bleeding stopped with bipolar and Bovie cautery and Gelfoam thrombin powder. The wound was then closed in layered fashion with 2-0 Vicryl interrupted sutures in the lumbodorsal fascia and Park's layer. 3-0 Vicryl buried interrupted sutures were placed in the dermis and skin was closed with a running 4-0 Monocryl subcuticular stitch and dressed with Dermabond. The patient was then allowed to wake up in the operating room was taken to the recovery room in stable condition. There were no immediate complications of this operation. All counts reported correct in the case. Blood loss was 50 cc. The patient is neurologically at her baseline postoperatively. CPT codes: 61089, 16625 x 2 Estimated Blood Loss -50.0 IV Fluids 1,000 Complications None Condition Stable Disposition PACU [facility] Billing Surgery - Charge Forward: Surgery Billing
== END 2022-11-18 15:20 | disposition home or self-care (01) ==
LOC: ANHSURGERY 08:01 → ANH2MED 14:36
PROVIDERS: PCP Family Medicine Adolescent Medicine; Visit Provider Neurological Surgery
PROC: (CPT 63005; principal; 2022-11-17 10:00)
DX: M48.062 Spinal stenosis, lumbar region with neurogenic claudication (principal); I10 Essential (primary) hypertension; M81.0 Age-related osteoporosis without current pathological fracture; F17.210 Nicotine dependence, cigarettes, uncomplicated
CPT/HCPCS: 63030; 63056; 63057; 36415; 86850; 86900; 86901; 97161; 97165; 97530; 97535; 99199; A9270; J0690; J2250; J2405; J2704; J3010; J7120

== ENCOUNTER 2023-01-06 13:26 | Emergency (ER) | payer MEDICARE, BC, SELFPAY ==
[2023-01-06 13:27] VITALS: BP 123/71; PULSE 109; RESP 20; TEMP 36.6; O2SAT 100
--- NOTE | 2023-01-06 14:27 | ED.WOUNDLAC ---
HPI - Wound/Laceration General Chief Complaint: Wound/Laceration Stated Complaint: sore on right leg Time Seen by Provider: 01/06/23 14:03 History of Present Illness HPI narrative: Patient is a 77-year-old female presenting with a wound. Patient states that approximately 3 weeks ago she cut her right calf on a sharp edge of a lotion bottle. Her PCP started her on clindamycin which she has completed. States that unfortunately the wound remains open and painful. States that sometimes it oozes some blood. States that there is mild surrounding erythema that is unchanged. Denies fevers or chills, numbness, difficulty ambulating, vomiting, or other systemic symptoms. Related Data Home Medications Medication Instructions Recorded Confirmed famotidine 10 mg tablet 10 mg PO DAILY 08/03/22 01/14/23 (Zantac-360 (famotidine)) ztvemwnx-nll-ttjnn acid 200 1 tablet PO DAILY 08/03/22 12/29/22 mcg-collagen, hydrolyzed 25 mg chew tablet (Women's Multivitamin with Collagen) vitamin C 50 mg-biotin 1,250 mcg 1 tablet PO DAILY 11/06/22 12/29/22 chewable tablet (Kkod-Gbfk-Lwkuu (vit C-biotin)) Allergies Allergy/AdvReac Type Severity Reaction Status Date / Time leflunomide Allergy Intermediate HAND Verified 01/14/23 13:10 NUMBNESS Penicillins Allergy Mild HIVES Verified 01/14/23 13:10 adalimumab Allergy Unknown RASH Verified 01/14/23 13:10 azathioprine Allergy Unknown PANCREATITI Verified 01/14/23 13:10 S mercaptopurine Allergy Unknown Blister Verified 01/14/23 13:10 methotrexate Allergy Unknown Hives Verified 01/14/23 13:10 dexamethasone Allergy Swelling Verified 01/14/23 13:10 etanercept [From Enbrel] Allergy Anaphylactic Verified 01/14/23 13:10 Shock atorvastatin AdvReac Intermediate myalgias Verified 01/14/23 13:10 Opioids - Morphine Analogues AdvReac Intermediate Vomiting Verified 01/14/23 13:10 egg AdvReac Abdominal Verified 01/14/23 13:10 Pain Review of Systems Review of Systems: All systems reviewed & are unremarkable except as noted in HPI and below PMFSH Past Medical History Medical History Abnormal colonoscopy 09/04 ileitis Allergies Arthritis History of Crohn's disease History of hypertension Osteoporosis Skin cancer Surgical History Surgical History History of abdominal surgery Adhesiolysis History of appendectomy (~7) History of bilateral tubal ligation (~1974) History of lumbar surgery (11/2022) History of partial colectomy (2010) Status post lumbar spine surgery for decompression of spinal cord Family History Family History Father Heart disease Diabetes mellitus Hypertension Heart problem Sibling Acute myocardial infarction Heart disease Social History Social History Social History: Pt has had 3 pregnancies, 1 miscarriage. Date of last mammogram was August of 2022. Recently . Smoking packs per day: 1 Smoking cigarettes per day: 20.0 Years smoked: 30 Smoking pack-years: 30.00 Smoking status: Current every day smoker Second hand tobacco smoke exposure: No Alcohol intake: never Alcohol use details: ONE DRINK PER MONTH Substance use: never Substance use type: does not use Lack of Transportation: No Lack of Food: Never True Current Housing: I Have Housing Concerned About Future Housing: No Difficulty Paying Gas/Electric Bills: No Difficulty Paying for Meds: No Currently Unemployed: No Education: High School Diploma/GED Difficulty w/ Childcare or Family Care: No Living arrangements: alone Occupation/Education: retired Gender identity (if verbalized by the patient): Female Sexual Orientation (if Verbalized by the Patient): Straight or Heterosexual Spiritual care concerns: No Agree
[2023-01-06] MEDS: KETOROLAC 30 MG/ML VIAL (*BKC) IM (14:49)
[2023-01-06 15:07] LABS: Basophils Absolute Auto 0.1 K/mm3 (0.0-0.1); Basophils Percent Auto 0.4 % (0.2-1.2); Eosinophils Absolute Auto 0.2 K/mm3 (0-0.3); Hematocrit 40.7 % (37.0-47.0); Hemoglobin 12.9 g/dL (12.0-15.0); Immature Granulocyte Absolute 0.05 K/mm3 (0.00-0.031); Immature Granulocyte Percent A 0.3 % (0-0.5); Lymphocytes Absolute Auto 2.48 K/mm3 (0.9-3.2); Mean Corpuscular HGB Conc 31.7 g/dl (32-36); Mean Corpuscular Hemoglobin 31.2 pg (26-34); Mean Corpuscular Volume 98.5 fl (80-100); Mean Platelet Volume 8.5 fl (7.4-10.4); Monocytes Absolute Auto 0.7 K/mm3 (0.1-0.6); Monocytes Percent Auto 5.1 % (2.6-8.5); Neutrophils Absolute Auto 11.1 K/mm3 (1.3-6.7); Neutrophils Percent Auto 76.2 % (45.5-73.1); Platelet Count Result 508 k/mm3 (150-375); Red Blood Count 4.13 M/mm3 (4.2-5.4); Red Cell Distribution Width 14.3 % (11.5-14.5); White Blood Count 14.6 K/mm3 (4.5-10.0)
[2023-01-06 15:19] LABS: Anion Gap 6 mmol/L (8-16); Blood Urea Nitrogen 7 mg/dL (7-17); Calcium 9.3 mg/dL (8.4-10.2); Carbon Dioxide 31 mmol/L (22-30); Chloride 101 mmol/L (98-107); Estimated CRCL calculation 37 ml/min; Estimated Glomerular Filt Rate > 60; Glucose 106 mg/dL (65-110); Sodium 138 mmol/L (137-145)
[2023-01-06 15:42] LABS: Erythrocyte Sedimentation Rate 19 mm/hr (0-20)
[2023-01-06] MEDS: CEPHALEXIN 500 MG CAPSULE PO (17:02)
== END 2023-01-06 17:10 | disposition home or self-care (01) ==
PROVIDERS: Emergency Provider Emergency Medicine; PCP Family Medicine Adolescent Medicine
DX: S81.811A Laceration without foreign body, right lower leg, initial encounter (principal); K50.90 Crohn's disease, unspecified, without complications; I10 Essential (primary) hypertension; M19.90 Unspecified osteoarthritis, unspecified site; M81.0 Age-related osteoporosis without current pathological fracture; F17.210 Nicotine dependence, cigarettes, uncomplicated; Z85.828 Personal history of other malignant neoplasm of skin; Z90.49 Acquired absence of other specified parts of digestive tract; W26.8XXA Contact with other sharp object(s), not elsewhere classified, initial encounter
CPT/HCPCS: 36415; 80048; 85025; 85652; 86140; 96372; 99283; A9270; J1885

== ENCOUNTER 2023-02-19 07:17 | Outpatient (RCR) | payer MEDICARE, BC, SELFPAY ==
[2023-01-14 12:15] VITALS: BMI 23.4
[2023-01-14 13:00] VITALS: BMI 23.4
== END 2023-03-25 13:46 | disposition home or self-care (01) ==
LOC: ANHWOC 07:17
PROVIDERS: PCP Family Medicine Adolescent Medicine; Visit Provider Family Medicine Adolescent Medicine
DX: S81.811D Laceration without foreign body, right lower leg, subsequent encounter (principal)
CPT/HCPCS: 99212; 99213; G0463

== ENCOUNTER → 2023-03-12 10:43 | Outpatient (CLI) | payer MEDICARE, BC, SELFPAY ==
--- NOTE | ~2023-03-12 | XR_ITS ---
Clinical Indication: Cough PA and lateral views of the chest: Comparison: 04/22/2018 Findings: Minimal right pleural effusion probably present. Left lung clear. Cardiomediastinal silhoue tte is within normal limits. Bones and soft tissues are unremarkable. Impression: Minimal right pleural effusion. Reviewed, dictated and finalized at [facility]. Impression: Minimal right pleural effusion.
== END ==
PROVIDERS: PCP Family Medicine Adolescent Medicine; Visit Provider Family Medicine Adolescent Medicine
DX: R05.9 Cough, unspecified (principal); J90 Pleural effusion, not elsewhere classified
CPT/HCPCS: 71046

== ENCOUNTER 2023-03-24 09:41 | Outpatient (CLI) | payer MEDICARE, BC, SELFPAY ==
--- NOTE | ~2023-03-24 | XR_ITS ---
[id number] DATE: 03/24/2023 10:16 INDICATION: Fall. Right chest pain. TECHNIQUE: PA chest. 3 views of right ribs. COMPARISON: None FINDINGS: Anterolateral mildly displaced right sixth rib fracture. Cannot exclude minimally displaced anterior right seventh rib fracture. Osteopenia. No pulmonary infiltrate or consolidation or pleural effusion or pneumothorax is detected. Normal heart size. Mild aortic calcification and unfolding. IMPRESSION: Anterolateral right sixth rib fracture, possible anterior right seventh rib fracture No active cardiopulmonary disease Osteopenia Reviewed, dictated and finalized at Location [facility]. Reviewed, dictated and finalized at location B. IMPRESSION: Anterolateral right sixth rib fracture, possible anterior right sev enth rib fracture No active cardiopulmonary disease Osteopenia
== END 2023-03-24 09:42 ==
LOC: MICIMG 09:43
PROVIDERS: PCP Family Medicine Adolescent Medicine; Visit Provider Family Medicine Adolescent Medicine
DX: R07.89 Other chest pain (principal)
CPT/HCPCS: 71101

== ENCOUNTER 2023-05-03 13:58 | Outpatient (CLI) | payer MEDICARE, BC, SELFPAY ==
--- NOTE | ~2023-05-03 | US_ITS ---
EXAMINATION: US arterial ankle brachial ind DATE: 05/03/2023 14:51 INDICATION: Peripheral arterial disease. TECHNIQUE: Segmental pressures and plethysmographic and Doppler waveforms of the brachial and lower e xtremity arteries were obtained. COMPARISON: None. FINDINGS: Right and left brachial artery pressures of 148 mm Hg and 156 mm Hg, respectively, are concordant (no rmal difference <= 30 mmHg). The right ankle-brachial index (SHIVAM) is 1.03 (normal >= 0.9-1.0). The right great toe-brachial index (TBI) is 0.27 (normal >= 0.65). Arterial Doppler waveforms are biphasic at the ankle. The left SHIVAM is 0.69. The left TBI is 0.26. Arterial Doppler waveforms are biphasic at the ankle. IMPRESSION: 1. Normal right SHIVAM, moderately decreased left SHIVAM, and decreased TBIs. Note that ABIs may be overest imated if arteries are calcified. Reviewed, dictated and finalized at location A. RESEARCH ENGINEER IMPRESSION: 1. Normal right SHIVAM, moderately decreased left SHIVAM, and decreased TBIs. Note th at ABIs may be overestimated if arteries are calcified.
== END 2023-05-03 13:59 | disposition home or self-care (01) ==
LOC: ANHIMG 14:00
PROVIDERS: PCP Family Medicine Adolescent Medicine; Visit Provider Family Medicine Adolescent Medicine
DX: I73.9 Peripheral vascular disease, unspecified (principal)
CPT/HCPCS: 93922

== ENCOUNTER 2023-05-20 21:53 | Inpatient (IN) | payer MEDICARE, BC, SELFPAY ==
--- NOTE | ~2023-05-20 | XR_ITS ---
EXAMINATION: XR chest 2V DATE: 05/20/2023 22:13 INDICATION: 2-3 days of intermittent chest pain TECHNIQUE: PA and lateral views of the chest were obtained. COMPARISON: Chest radiograph dated 03/12/2023 FINDINGS: The lungs are clear with no focal airspace opacities, pulmonary edema, pleural effusion or pneumothor ax. The cardiomediastinal silhouette is normal. Mild thoracic kyphosis. IMPRESSION: 1. No acute cardiopulmonary disease. Reviewed, dictated and finalized at location A. [facility] [employer]
--- NOTE | 2023-05-20 21:55 | ECG_ITS ---
Measurements Intervals [place] Rate: 82 P: 57 [place]: 153 QRS: 32 QRSD: 79 T: 78 QT: 355 QTc: 417 Interpretive Statements SINUS RHYTHM ST-T WAVE ABNORMALITY IN HIGH LATERAL LEADS- CONSIDER ISCHEMIA BASELINE ARTIFACT- I, II, III ABNORMAL ECG COMPARED TO ECG 11/11/2022 12:54:56 ST (T WAVE) DEVIATION NOW PRESENT Electronically Signed On 05-20-2023 22:18:58 FURNITURE REMOVALIST by Brayden Cheung D.O.
[2023-05-20 21:58] VITALS: BP 135/51; PULSE 82; RESP 15; TEMP 36.7; O2SAT 100
[2023-05-20 22:12] LABS: Basophils Absolute Auto 0.1 K/mm3 (0.0-0.1); Basophils Percent Auto 0.4 % (0.2-1.2); Eosinophils Absolute Auto 0.2 K/mm3 (0-0.3); Eosinophils Percent Auto 1.2 % (0-4.4); Hematocrit 39.9 % (37.0-47.0); Hemoglobin 12.5 g/dL (12.0-15.0); Immature Granulocyte Absolute 0.04 K/mm3 (0.00-0.031); Immature Granulocyte Percent A 0.3 % (0-0.5); Lymphocytes Absolute Auto 2.85 K/mm3 (0.9-3.2); Lymphocytes Percent Auto 21.7 % (18.3-44.2); Mean Corpuscular HGB Conc 31.3 g/dl (32-36); Mean Corpuscular Hemoglobin 29.6 pg (26-34); Mean Corpuscular Volume 94.5 fl (80-100); Mean Platelet Volume 8.9 fl (7.4-10.4); Monocytes Absolute Auto 0.8 K/mm3 (0.1-0.6); Monocytes Percent Auto 6.2 % (2.6-8.5); Neutrophils Absolute Auto 9.2 K/mm3 (1.3-6.7); Neutrophils Percent Auto 70.2 % (45.5-73.1); Platelet Count Result 435 k/mm3 (150-375); Red Blood Count 4.22 M/mm3 (4.2-5.4); Red Cell Distribution Width 15.9 % (11.5-14.5); White Blood Count 13.1 K/mm3 (4.5-10.0)
[2023-05-20 22:20] LABS: Alanine Aminotransferase 17 U/L (6-35); Albumin Level 4.1 g/dL (3.5-5.1); Alkaline Phosphatase 118 U/L (38-126); Anion Gap 11 mmol/L (8-16); Aspartate Amino Transferase 23 U/L (14-36); Bilirubin,Total 0.6 mg/dL (0.2-1.3); Blood Urea Nitrogen 7 mg/dL (7-17); Calcium 9.1 mg/dL (8.4-10.2); Carbon Dioxide 23 mmol/L (22-30); Chloride 105 mmol/L (98-107); Estimated CRCL calculation 33 ml/min; Estimated Glomerular Filt Rate > 60; Glucose 120 mg/dL (65-110); Lipase 127 U/L (23-300); Potassium 4.2 mmol/L (3.4-5.0); Sodium 139 mmol/L (137-145)
[2023-05-20 22:24] LABS: INR 0.9; Prothrombin Time 12.7 Seconds (11.1-14.7)
[2023-05-20 22:25] LABS: Partial Thromboplastin Time 29.4 SECONDS (22.3-36.8)
[2023-05-20 22:32] LABS: Troponin I 0.019 ng/mL (0.000-0.034)
[2023-05-21] VITALS (43 sets, daily range): BP systolic 117–162; BP diastolic 45–106; PULSE 59–83; RESP 14–23; TEMP 36–36.6; O2SAT 97–100
--- NOTE | 2023-05-21 | ECHO_ITS ---
Patient Info Name: Izzy Sims Age: 77 years : 1945 Gender: Female Ht: 60 in Wt: 114 lbs BSA: 1.49 m2 HR: 78 bpm BP: 117 / 50 mmHg Technical Quality: Poor Exam Date: 05/21/2023 4:00 PM Exam Location: Echo Lab Exam Room: [facility] Patient Status: Inpatient Admit Date: 05/21/2023 Staff Ordering Physician: Brayden Cheung DO [employer] Truck Driver: Liberty Alfonso RDCS Attending Provider: Maine Ricci MD Referring Physician: Jonatan SCHROEDER; Exam Type: CA echo dop color flow w con Study Info Indications - nstemi chest pain s/p cath Complete two-dimensional, color flow and Doppler transthoracic echocardiogram is performed with contrast to opacify the left ventricle and to improve the deliniation of the left ventricle endocardial borders. Contrast/Agitated Saline Contrast/Ag. Saline: Definity Amount: 2.00 ml Administered By: Liberty Alfonso [facility] Existing IV Access: Yes IV Access Condition: patent with no signs of infiltration Reason for Poor Study: poor echocardiographic windows Summary 1. Technically suboptimal study due to poor sonographic images. 2. Left ventricular chamber dimension is normal. 3. Basal inferior wall is akinetic. 4. Left ventricular systolic function is mildly reduced, estimated at 45-50%. 5. The left ventricular diastolic function is grade I diastolic dysfunction. 6. E/e' 14 is mildly elevated. 7. There is mild aortic valve sclerosis. 8. The mitral valve has mildly calcified annulus. 9. There is trace tricuspid valve regurgitation. 10. No pulmonary hypertension, estimated pulmonary arterial systolic pressure is 27 mmHg. Left Ventricle E/e' 14 is mildly elevated. Basal inferior wall is akinetic. Technically suboptimal study due to poor sonographic images. Left ventricular chamber dimension is normal. Left ventricular systolic function is mildly reduced, estimated at 45-50%. The left ventricular diastolic function is grade I diastolic dysfunction. Right Ventricle Right ventricular chamber dimension is normal. Right ventricular systolic function is normal. Left Atria Left atrial chamber dimension is normal. Right Atria Right atrial chamber dimension is normal. Aortic Valve The aortic valve is not well visualized. Cannot determine number of aortic valve leaflets. There is mild aortic valve sclerosis. There is no aortic valve stenosis. There is no aortic valve regurgitation. Pulmonic Valve There is no pulmonic regurgitation. Mitral Valve The mitral valve has mildly calcified annulus. There is no mitral valve stenosis. There is no mitral valve regurgitation. Tricuspid Valve There is trace tricuspid valve regurgitation. No pulmonary hypertension, estimated pulmonary arterial systolic pressure is 27 mmHg. Pericardium/Pleural There is no pericardial effusion. Inferior Vena Cava Normal inferior vena cava with >50% collapse upon inspiration consistent with normal right atrial pressure, 5 mmHg. Aorta The aortic root size at the sinus of Valsalva is normal. Left Ventricular Outflow Tract Name Value Normal LVOT 2D LVOT Diameter 1.97 cm LVOT Doppler LVOT Peak Gradient 4 mmHg LV
[2023-05-21 02:17] LABS: Troponin I 0.067 ng/mL (0.000-0.034)
--- NOTE | 2023-05-21 02:27 | ED.GENADULT ---
HPI - General Adult General Chief complaint: Chest Pain Stated complaint: chest pain Time Seen by Provider: 05/21/23 02:06 History of Present Illness HPI narrative: patient is a 77-year-old female who presents to emergency department with chief complaint of chest pain. Patient reports over the last several days she has had episodes of tightness in her chest patient states radiates up into her jaw and to her lower back patient states that she did take a baby aspirin prior to arrival and was given 3 more baby aspirin by EMS. The patient reports the pain has essentially resolved at this point. Patient reports she had a cardiac stress test many years ago there has not had a cardiac evaluation since then. Related Data Home Medications Medication Instructions Recorded Confirmed famotidine 10 mg tablet 10 mg PO DAILY 08/03/22 03/24/23 (Zantac-360 (famotidine)) qvchvtaf-rpa-ypzqh acid 200 1 tablet PO DAILY 08/03/22 03/24/23 mcg-collagen, hydrolyzed 25 mg chew tablet (Women's Multivitamin with Collagen) vitamin C 50 mg-biotin 1,250 mcg 1 tablet PO DAILY 11/06/22 03/24/23 chewable tablet (Ikxl-Nhjr-Uojjl (vit C-biotin)) Allergies Allergy/AdvReac Type Severity Reaction Status Date / Time leflunomide Allergy Intermediate HAND Verified 03/24/23 08:45 NUMBNESS Penicillins Allergy Mild HIVES Verified 03/24/23 08:45 adalimumab Allergy Unknown RASH Verified 03/24/23 08:45 azathioprine Allergy Unknown PANCREATITI Verified 03/24/23 08:45 S mercaptopurine Allergy Unknown Blister Verified 03/24/23 08:45 methotrexate Allergy Unknown Hives Verified 03/24/23 08:45 dexamethasone Allergy Swelling Verified 03/24/23 08:45 etanercept [From Enbrel] Allergy Anaphylactic Verified 03/24/23 08:45 Shock atorvastatin AdvReac Intermediate myalgias Verified 03/24/23 08:45 Opioids - Morphine Analogues AdvReac Intermediate Vomiting Verified 03/24/23 08:45 egg AdvReac Abdominal Verified 03/24/23 08:45 Pain Review of Systems Review of Systems: A 10 system review of systems was completed on the patient and is negative except for what is stated in the HPI. Nursing and ancillary documentation was reviewed. [facility] Past Medical History Medical History Abnormal colonoscopy 09/04 ileitis Allergies Arthritis History of Crohn's disease History of hypertension Osteoporosis Skin cancer Surgical History Surgical History History of abdominal surgery Adhesiolysis History of appendectomy (~1956) History of bilateral tubal ligation (~1974) History of lumbar surgery (11/2022) History of partial colectomy (2010) Status post lumbar spine surgery for decompression of spinal cord Family History Family History Father Heart disease Diabetes mellitus Hypertension Heart problem Sibling Acute myocardial infarction Heart disease Social History Social History Social History: Pt has had 3 pregnancies, 1 miscarriage. Date of last mammogram was August of 2022. Recently . Smoking packs per day: 1 Smoking cigarettes per day: 20.0 Years smoked: 30 Smoking pack-years: 30.00 Smoking status: Current every day smoker Second hand tobacco smoke exposure: No Alcohol intake: never Alcohol use details: ONE DRINK PER MONTH Substance use: never Substance use type: does not use Lack of Transportation: No Lack of Food: Never True Current Housing: I Have Housing Concerned About Future Housing: No Difficulty Paying Gas/Electric Bills: No Difficulty Paying for Meds: No Currently Unemployed: No Education: High School Diploma/GED Difficulty w/ Childcare or Family Care: No Living arrangements: alone Occupation/Education: retired Gender iden
[2023-05-21] MEDS: ENOXAPARIN 60 MG/0.6 ML SYRINGE 52 MG SUB-Q (03:17)
[2023-05-21 04:58] LABS: Troponin I 0.082 ng/mL (0.000-0.034)
[2023-05-21] MEDS: ASPIRIN 81 MG CHEWABLE TABLET PO (08:35)
--- NOTE | 2023-05-21 08:45 | PM.CNCAR ---
Assessment and Plan Assessment and plan (1) Chest pain: Code(s): R07.9 - Chest pain, unspecified Status: Acute (2) NSTEMI (non-ST elevated myocardial infarction): Code(s): I21.4 - Non-ST elevation (NSTEMI) myocardial infarction Status: Acute Assessment and Plan: Received aspirin and dose of Lovenox at 3 am. Discontinue Lovenox. On Rosuvastatin. Start Metoprolol Succinate 25 mg daily. Obtain echo. Discuss risks/benefits/alternative to [facility] and she is agreeable to it. Will consult [facility] for it and plan for this afternoon given got dose of Lovenox. (3) Mixed hyperlipidemia: Code(s): E78.2 - Mixed hyperlipidemia Status: Acute Assessment and Plan: On Rosuvastatin. (4) Essential (primary) hypertension: Code(s): I10 - Essential (primary) hypertension Status: Acute Assessment and Plan: Stable. History of Present Illness History of Present Illness Consult date/time: 05/21/23 08:45 Reason For Visit: Chest Pain/Elevated Troponin Narrative: 77 yr old woman presents to ER with chest pain. She has a history of hypertension, dyslipidemia, and Crohn's disease. Reports in last few days she has waxing and waning chest pressure with radiation of pain to jaw and right arm. Currently seen in ER with chest pressure 4/10 pain. Normally she can walk more than 1/4 mile without any problems. Denies sob, orthopnea, PND, edema, dizziness, palpitations. Review of Systems Review of Systems: All systems reviewed & are unremarkable except as noted in HPI and below Constitutional: Constitutional: Reports as per HPI, Denies chills and Denies fever(s) Cardiovascular: Cardiovascular: Reports as per HPI, Reports chest pain and Denies irregular heart rhythm Respiratory: Respiratory: Reports as per HPI and Denies dyspnea Gastrointestinal: Gastrointestinal: Denies abdominal pain Genitourinary: Genitourinary: Reports as per HPI and Denies dysuria Musculoskeletal: Musculoskeletal: Reports as per HPI Neurologic: Reports as per HPI, Denies dizziness and Denies syncope [facility] Past Medical History Medical History Abnormal colonoscopy 09/04 ileitis Allergies Arthritis History of Crohn's disease History of hypertension Osteoporosis Skin cancer Surgical History Surgical History History of abdominal surgery Adhesiolysis History of appendectomy (~1957) History of bilateral tubal ligation (~1974) History of lumbar surgery (11/2022) History of partial colectomy (2010) Status post lumbar spine surgery for decompression of spinal cord Family History Family History Father Heart disease Diabetes mellitus Hypertension Heart problem Sibling Acute myocardial infarction Heart disease Social History Social History Social History: Pt has had 3 pregnancies, 1 miscarriage. Date of last mammogram was August of 2022. Recently . Smoking packs per day: 1 Smoking cigarettes per day: 20.0 Years smoked: 30 Smoking pack-years: 30.00 Smoking status: Current every day smoker Tobacco type: cigarettes Second hand tobacco smoke exposure: No Alcohol intake: never Alcohol use details: ONE DRINK PER MONTH Substance use: never Substance use type: does not use Lack of Transportation: No Lack of Food: Never True Current Housing: I Have Housing Concerned About Future Housing: No Difficulty Paying Gas/Electric Bills: No Difficulty Paying for Meds: No Currently Unemployed: No Education: High School Diploma/GED Difficulty w/ Childcare or Family Care: No Living arrangements: alone Occupation/Education: retired Gender identity (if verbalized by the patient): Female Sexual Orientation (if Verbalized by th
--- NOTE | 2023-05-21 08:53 | PM.IMHP ---
H&P: HPI History of Present Illness Date/Time: 05/21/23 08:53 Chief Complaint: Chest pain Narrative: ?patient is a 77-year-old female who presents to emergency department with chief complaint of chest pain.? Patient reports over the last several days she has had episodes of tightness in her chest patient states radiates up into her jaw and to her lower back patient states that she did take a baby aspirin prior to arrival and was given 3 more baby aspirin by EMS.? The patient reports the pain has essentially resolved at this point.? Patient reports she had a cardiac stress test many years ago there has not had a cardiac evaluation since then. Review of Systems Review of Systems: - CONSTITUTIONAL: Denies weight loss, fever and chills. - HEENT: Denies changes in vision and hearing - RESPIRATORY: Denies SOB and cough. - CV: Denies palpitations and reports CP. - GI: Denies abdominal pain, nausea, vomiting and diarrhea. - : Denies dysuria and urinary frequency. - MSK: Denies myalgia and joint pain. - SKIN: Denies rash and pruritus. - NEUROLOGICAL: Denies headache and syncope. - PSYCHIATRIC: Denies recent changes in mood. Denies anxiety and depression. [facility] Past Medical History Medical History Abnormal colonoscopy 09/04 ileitis Allergies Arthritis History of Crohn's disease History of hypertension Osteoporosis Skin cancer Surgical History Surgical History History of abdominal surgery Adhesiolysis History of appendectomy (~1956) History of bilateral tubal ligation (~1974) History of lumbar surgery (11/2022) History of partial colectomy (2010) Status post lumbar spine surgery for decompression of spinal cord Family History Family History Father Heart disease Diabetes mellitus Hypertension Heart problem Sibling Acute myocardial infarction Heart disease Social History Social History Social History: Pt has had 3 pregnancies, 1 miscarriage. Date of last mammogram was August of 2022. Recently . Smoking packs per day: 1 Smoking cigarettes per day: 20.0 Years smoked: 30 Smoking pack-years: 30.00 Smoking status: Current every day smoker Second hand tobacco smoke exposure: No Alcohol intake: never Alcohol use details: ONE DRINK PER MONTH Substance use: never Substance use type: does not use Lack of Transportation: No Lack of Food: Never True Current Housing: I Have Housing Concerned About Future Housing: No Difficulty Paying Gas/Electric Bills: No Difficulty Paying for Meds: No Currently Unemployed: No Education: High School Diploma/GED Difficulty w/ Childcare or Family Care: No Living arrangements: alone Occupation/Education: retired Gender identity (if verbalized by the patient): Female Sexual Orientation (if Verbalized by the Patient): Straight or Heterosexual Spiritual care concerns: No Agree to blood products: Yes Meds Home Medications and Allergies Home Medications Medication Instructions Recorded Confirmed Type famotidine 10 mg tablet 10 mg PO DAILY 08/03/22 03/24/23 History (Zantac-360 (famotidine)) bjusntmr-ley-hturp acid 200 1 tablet PO DAILY 08/03/22 03/24/23 History mcg-collagen, hydrolyzed 25 mg chew tablet (Women's Multivitamin with Collagen) lisinopril 20 mg tablet 20 mg PO DAILY #90 tabs 10/30/22 03/24/23 Rx vitamin C 50 mg-biotin 1,250 mcg 1 tablet PO DAILY 11/06/22 03/24/23 History chewable tablet (Lsct-Jwzz-Rqloh (vit C-biotin)) cyclobenzaprine 10 mg tablet 10 mg PO TID PRN muscle spasm #30 11/18/22 03/24/23 Rx tabs sennosides 8.6 mg-docusate sodium 1 tab PO HS PRN Constipation 7 11/18/22 03/24/23 Rx 50 mg tablet (Senokot-S) days #30 ta
[2023-05-21 09:24] LABS: Cholesterol 156 mg/dL (0-200); HDL Direct 54 mg/dL; Triglycerides 101 mg/dL (<150)
[2023-05-21 09:35] LABS: LDL Cholesterol Direct 82 mg/dL
--- NOTE | 2023-05-21 09:52 | ADMGEN ---
This patient, Izzy Sims, was admitted to IMU Room 231-01 on 05/21/23 at 0911. Patient/family oriented to hospital policies and general routines including ID bracelet, bed and alarms, visiting hours, pain management, procedures, bathroom and other care routines, personal items, smoking policy, room service/diet, and visiting hours. Information on how to activate the Rapid Response Team has been discussed. Patient/Family are encouraged to report perceived risks to care and to ask questions if they do not understand what they are told or what they should do.
[2023-05-21] MEDS: NITROGLYCERIN SL 0.4 MG TABLET SUBLINGUAL ×3 (10:21→10:42)
[2023-05-21] MEDS: METOPROLOL SUCCINATE EXT REL 25 MG TABCR PO (10:22)
--- NOTE | 2023-05-21 11:57 | WPDMODSED ---
Moderate Sedation Note-Pt Data Patient Data Diagnosis: chest pain/ACS Present Complaint: intermittent chest pain Procedure to be performed/Plan: left heart catheterization Allergies Allergy/AdvReac Type Severity Reaction Status Date / Time leflunomide Allergy Intermediate HAND Verified 03/24/23 08:45 NUMBNESS Penicillins Allergy Mild HIVES Verified 05/21/23 03:23 adalimumab Allergy Unknown RASH Verified 05/21/23 03:23 azathioprine Allergy Unknown PANCREATITI Verified 05/21/23 03:23 S mercaptopurine Allergy Unknown Blister Verified 05/21/23 03:23 methotrexate Allergy Unknown Hives Verified 05/21/23 03:23 dexamethasone Allergy Swelling Verified 05/21/23 03:23 etanercept [From Enbrel] Allergy Anaphylactic Verified 05/21/23 03:23 Shock atorvastatin AdvReac Intermediate myalgias Verified 05/21/23 03:23 Opioids - Morphine Analogues AdvReac Intermediate Vomiting Verified 05/21/23 03:23 Home Medications Medication Instructions Recorded Confirmed Type famotidine 10 mg tablet 10 mg PO DAILY 08/03/22 05/21/23 History (Zantac-360 (famotidine)) pjpezgkq-vbh-ytome acid 200 1 tablet PO DAILY 08/03/22 05/21/23 History mcg-collagen, hydrolyzed 25 mg chew tablet (Women's Multivitamin with Collagen) lisinopril 20 mg tablet 20 mg PO DAILY #90 tabs 10/30/22 05/21/23 Rx vitamin C 50 mg-biotin 1,250 mcg 1 tablet PO DAILY 11/06/22 05/21/23 History chewable tablet (Vdtp-Gzjt-Jxsis (vit C-biotin)) lorazepam 1 mg tablet 1 mg PO HS #90 tabs 04/02/23 05/21/23 Rx rosuvastatin 5 mg tablet See Rx Instructions .Route 04/28/23 05/21/23 Rx .COMPLEX #90 tabs oxycodone 10 mg tablet 10 mg PO QID PRN pain #100 tabs 05/17/23 05/21/23 Rx Current Medications: Active Medications Aspirin (Aspirin 81 Mg Chewable Tablet) 81 mg PO DAILY@0800 [facility] Last Admin: 05/21/23 08:35 Dose: 81 mg Metoprolol Succinate (Metoprolol Succinate Ext Rel 25 Mg Tabcr) 25 mg PO QAM [facility] Last Admin: 05/21/23 10:22 Dose: 25 mg Nitroglycerin (Nitroglycerin Sl 0.4 Mg Tablet) 0.4 mg SUBLINGUAL Q5MIN PRN PRN Reason: Chest Pain Last Admin: 05/21/23 10:42 Dose: 0.4 mg Perflutren Lipid Microsphere (Perflutren Lipid Microspheres 1.5 Ml Vial Diluted To 10 Ml Total Volume) 0 ml IV PUSH ONCE PRN; Protocol PRN Reason: adequate visualization Stop: 05/24/23 08:50 Sedation/Anesthesia: No previous sedation/anesthesia problems (including family history). [facility] Past Medical History Medical History Abnormal colonoscopy 09/04 ileitis Allergies Arthritis History of Crohn's disease History of hypertension Osteoporosis Skin cancer Surgical History Surgical History History of abdominal surgery Adhesiolysis History of appendectomy (~1956) History of bilateral tubal ligation (~1974) History of lumbar surgery (11/2022) History of partial colectomy (2010) Status post lumbar spine surgery for decompression of spinal cord Family History Family History (Updated 05/21/23 @ 10:47 by Loyda Orozco RN) Father Diabetes mellitus Heart disease Heart problem Hypertension Hx of CABG Sibling No problems noted. Social History Social History Social History: Pt has had 3 pregnancies, 1 miscarriage. Date of last mammogram was August of 2022. Recently . Smoking packs per day: 1 Smoking cigarettes per day: 20.0 Years smoked: 30 Smoking pack-years: 30.00 Smoking status: Current every day smoker Tobacco type: cigarettes Second hand tobacco smoke exposure: No Alcohol intake: never Alcohol use details: ONE DRINK PER MONTH Substance use: never Substance use type: does not use Lack of Transportation: No Lack of Food: Never True Current Housing: I Have Housing Concerned About Future Housing: No Diffic
--- NOTE | 2023-05-21 12:44 | ECG_ITS ---
Measurements Intervals [place] Rate: 67 P: 57 IL: 141 QRS: 9 QRSD: 76 T: -50 QT: 440 QTc: 465 Interpretive Statements SINUS RHYTHM MODERATE T-WAVE ABNORMALITY, CONSIDER ANTEROLATERAL ISCHEMIA [-0.1+ mV T WAVE IN V3- V6] MODERATE T-WAVE ABNORMALITY, CONSIDER INFERIOR ISCHEMIA [-0.1+ mV T WAVE IN II/aVF] ABNORMAL ECG COMPARED TO ECG 05/20/2023 22:01:58 NO SIGNIFICANT CHANGES Electronically Signed On 05-22-2023 13:48:13 [employer]ANUT [employer]ANCHER by Gilberto Grant M.D.
--- NOTE | 2023-05-21 12:48 | WPDCARDPROC ---
Cardiac Cath Procedure Note Date of procedure:: 05/21/23 Performing physician:: Malcom Flores MD Indication:: acute coronary syndrome Brief clinical history:: this is a 77-year-old patient without prior history of coronary disease presenting to the hospital with intermittent chest pain. Patient has modest troponin rise indicating evidence of ACS. Angiography was requested by her physician. Procedure Procedure performed:: Left ventriculogram coronary angiogram PCI(SCOTT) to the distal RCA Sedation/Medication given:: fentanyl 50 mg Versed 4 mg case start time 12 11 case end time 12:41 p.m. sedation provided by Mateusz Toth RN, trained observer Access site:: right femoral artery Estimated blood loss:: 30 cc Procedure note:: patient was brought to the cardiac catheterization lab in postabsorptive state where the right femoral triangle was prepared and draped in the normal fashion. Anesthesia was provided with 1% lidocaine infiltrated locally. Using the modified Seldinger technique the femoral artery was punctured and a 5 [place] vascular sheath placed. Following this a 5 [place] angled pigtail catheter was used to perform left ventriculography in the [place]IP[place] projection and to measure left-sided hemodynamics. Following this a standard 5 [place] FL4 catheter was used to engage and inject the left coronary artery in multiple projections. The right coronary artery was engaged and injected using a 5 [place] JR4 catheter. The cineangiograms were then reviewed and PCI of the distal RCA was recommended and carried out as detailed below. Prior to PCI the 5 [place] [employer] sheath was changed oil change technician a guidewire for a 6 [place] sheath. The patient received 600 mg of oral clopidogrel and was anticoagulated with bolus and infusion of Angiomax for this PCI. Following intervention the sheath was sutured into position the patient was taken holding area recovery and sheath removal. She tolerated the procedure well there were no apparent complications. Findings:: Hemodynamics: Central pressure 40 52 left ventricle 40/0 end-diastolic 14 there is no gradient across the aortic valve upon pullback. Left ventricle: The LV is of normal size. The inferior posterior segment is mildly hypodynamic the remainder of the LV contracts well the global ejection fraction is normal At 55-60%. The left main coronary artery is widely patent the left anterior descending is a medium caliber artery extending down to the apex the distal 3rd of the LAD is very small in caliber there is no significant disease in the LAD itself. There is a 80% ostial stenosis of the major septal perforating complex. The circumflex is a small to medium caliber last only 1 marginal branch. There are mild diffuse luminal irregularities in the circumflex but no flow-limiting lesions are seen the right coronary artery is large in caliber and dominant to the posterior circulation. There is a 95% stenosis in the 3rd portion of the RCA which is angiographically somewhat complex and about 10 mm in length. The RPDA and RPL branches are free of significant disease. Intervention: The right coronary artery was engaged using a 6 [place] JR4 guiding catheter. I used a 0.014 BMW coronary guidewire to traverse the target lesion and advanced easily into the distal RPDA. The lesion was then pre-dilated using a 3 x 20 mm Panterra balloon at 8 atmospheres which markedly improved the lesion. The lesion was then stented using a 4 x 22 mm SamEnrico stent deployed 14 atmospheres for 30 seconds with an excellent angiographic result following stent deployment there was no residual stenosis disruption dissection or distal embolization. There was a good step-up step-down in the stented segment indicating very good stent expansion and apposition. Conclusion:: 1. right coronary dominant circulation with coronary artery disease culprit lesion for ACS is 95% stenosis of the 3rd porti
[2023-05-21] MEDS: PERFLUTREN LIPID MICROSPHERES 1.5 ML VIAL DILUTED TO 10 ML TOTAL VOLUME IV PUSH (16:15)
--- NOTE | 2023-05-21 16:33 | IVDEFINITY ---
Prior to administration of IV Definity the patient was educated on the risks and benefits of the imaging enhancing agent including potential adverse side effects. The patient verbalized understanding. Allergies were verified. No exclusion criteria were identified and at least one of the following inclusion criteria were met: 1) physician request, 2) patient technically difficult to image (per the [place] [employer] Echocardi[employer] guidelines of two or more segments not discernable within the apical view), or 3) questionable left ventricular function. ?
[2023-05-21] MEDS: SODIUM CHLORIDE 0.9% IV 1,000 ML 125 ML IV CONT (16:48)
[2023-05-21] MEDS: oxyCODONE HCL (*CRX) 5 MG TAB IR 10 MG PO (18:42)
[2023-05-22] VITALS (10 sets, daily range): BP systolic 118–148; BP diastolic 48–58; PULSE 54–69; RESP 16–18; TEMP 36.4–36.8; O2SAT 97–100
[2023-05-22] MEDS: BENZOCAINE/MENTHOL (*BKC) 18 EA LOZENGE 1 LOZENGE PO (00:25)
[2023-05-22 04:49] LABS: Basophils Absolute Auto 0.1 K/mm3 (0.0-0.1); Basophils Percent Auto 0.6 % (0.2-1.2); Eosinophils Absolute Auto 0.1 K/mm3 (0-0.3); Eosinophils Percent Auto 0.8 % (0-4.4); Hematocrit 36.4 % (37.0-47.0); Hemoglobin 11.3 g/dL (12.0-15.0); Immature Granulocyte Absolute 0.05 K/mm3 (0.00-0.031); Immature Granulocyte Percent A 0.4 % (0-0.5); Lymphocytes Absolute Auto 3.04 K/mm3 (0.9-3.2); Lymphocytes Percent Auto 25.5 % (18.3-44.2); Mean Corpuscular Hemoglobin 29.7 pg (26-34); Mean Corpuscular Volume 95.5 fl (80-100); Mean Platelet Volume 9.3 fl (7.4-10.4); Monocytes Absolute Auto 0.8 K/mm3 (0.1-0.6); Monocytes Percent Auto 6.6 % (2.6-8.5); Neutrophils Absolute Auto 7.9 K/mm3 (1.3-6.7); Neutrophils Percent Auto 66.1 % (45.5-73.1); Platelet Count Result 368 k/mm3 (150-375); Red Blood Count 3.81 M/mm3 (4.2-5.4); Red Cell Distribution Width 15.8 % (11.5-14.5); White Blood Count 11.9 K/mm3 (4.5-10.0)
[2023-05-22 05:11] LABS: Alanine Aminotransferase 13 U/L (6-35); Albumin Level 3.4 g/dL (3.5-5.1); Alkaline Phosphatase 106 U/L (38-126); Anion Gap 8 mmol/L (8-16); Aspartate Amino Transferase 22 U/L (14-36); Bilirubin,Total 1.3 mg/dL (0.2-1.3); Blood Urea Nitrogen 7 mg/dL (7-17); Calcium 8.7 mg/dL (8.4-10.2); Carbon Dioxide 24 mmol/L (22-30); Chloride 107 mmol/L (98-107); Estimated CRCL calculation 39 ml/min; Estimated Glomerular Filt Rate > 60; Glucose 92 mg/dL (65-110); Magnesium 1.7 mg/dL (1.6-2.3); Potassium 3.7 mmol/L (3.4-5.0); Sodium 139 mmol/L (137-145)
--- NOTE | 2023-05-22 05:11 | ECG_ITS ---
Measurements Intervals [place] Rate: 60 P: 52 VT: 151 QRS: 3 QRSD: 73 T: -61 QT: 424 QTc: 426 Interpretive Statements SINUS RHYTHM ST DEVIATION AND MODERATE T-WAVE ABNORMALITY, CONSIDER ANTEROLATERAL ISCHEMIA [-0.1+ mV T WAVE IN V3-V6] ST DEVIATION AND MODERATE T-WAVE ABNORMALITY, CONSIDER INFERIOR ISCHEMIA [-0.1+ mV T WAVE IN II/aVF] ABNORMAL ECG COMPARED TO ECG 05/21/2023 14:41:04 T-WAVE ABNORMALITY MORE PROMINENT Electronically Signed On 05-22-2023 14:09:04 [employer]SEMBLER by Gilberto Grant M.D.
[2023-05-22] MEDS: oxyCODONE HCL (*CRX) 5 MG TAB IR 10 MG PO (06:46)
--- NOTE | 2023-05-22 07:22 | PM.PNCARD ---
Progress Note: A&P Assessment and Plan (1) Chest pain: Code(s): R07.9 - Chest pain, unspecified Status: Acute (2) NSTEMI (non-ST elevated myocardial infarction): Code(s): I21.4 - Non-ST elevation (NSTEMI) myocardial infarction Status: Acute Assessment and Plan: Received aspirin and dose of Lovenox at 3 am. Discontinue Lovenox. Troponin went to .082. On Rosuvastatin. Started aspirin 81 mg daily, Clopidogrel 75 mg daily, and Metoprolol Succinate 25 mg daily. 05/21/23 Echo: EF 45-50%, basal inferior wall is akinetic, diastolic dysfunction (E/e' 14), trace TR. 05/21/23 Dr. Flores [facility]: 3rd portion of RCA with 95% long stenosis, ostial septal branch of LAD with 80% stenosis; PCI to RCA with good results. Discuss results of echo and cath with patient. Advise to continue dual antiplatelets uninterrupted. May d/c home from cardiology standpoint and f/u with me in 1 week. Then will order phase II cardiac rehab. (3) Mixed hyperlipidemia: Code(s): E78.2 - Mixed hyperlipidemia Status: Acute Assessment and Plan: On Rosuvastatin. (4) Essential (primary) hypertension: Code(s): I10 - Essential (primary) hypertension Status: Acute Assessment and Plan: Stable. Subjective Date/time seen: 05/22/23 07:22 Interval history: Denies chest pain or sob. Has some back pain from laying in different bed per patient. Right groin without pain or hematoma. Exam Const: General: cooperative, healthy appearing and comfortable Orientation/consciousness: oriented to person, oriented to place and oriented to time Resp: Auscultation: clear to auscultation bilaterally, no crackles, no rales, no rhonchi and no wheezes Cardio: Rate: regular rate Rhythm: regular rhythm Heart sounds: no murmurs Peripheral pulses: dorsalis pedis present Neuro: General: oriented to person, oriented to place and oriented to time Extrem: Right lower extremity: no edema Left lower extremity: no edema Objective Data Vital Signs Vital Signs: Vital Signs - 24 hr 05/21/23 07:30 05/21/23 07:41 05/21/23 08:02 Temperature Pulse Rate 77 66 64 Pulse Rate [Right Pedal (Dorsalis Pedis)] Respiratory Rate 18 18 16 Blood Pressure 133/106 H 133/53 L Pulse Oximetry 98 100 97 Oxygen Delivery 05/21/23 08:30 05/21/23 09:11 05/21/23 10:22 Temperature 97.4 F L Pulse Rate 83 70 79 Pulse Rate [Right Pedal (Dorsalis Pedis)] Respiratory Rate 19 18 Blood Pressure 117/50 L Pulse Oximetry 99 Oxygen Delivery 05/21/23 09:11 05/21/23 11:45 05/21/23 13:02 Temperature Pulse Rate 65 Pulse Rate [Right Pedal (Dorsalis Pedis)] Respiratory Rate 21 H Blood Pressure 141/62 H Pulse Oximetry 100 Oxygen Delivery Room Air Room Air Room Air 05/21/23 13:15 05/21/23 13:30 05/21/23 13:45 Temperature Pulse Rate 65 67 67 Pulse Rate [Right Pedal (Dorsalis Pedis)] Respiratory Rate 14 14 14 Blood Pressure 127/53 L 128/60 130/56 L Pulse Oximetry 99 99 99 Oxygen Delivery Room Air Room Air Room Air 05/21/23 14:00 05/21/23 14:15 05/21/23 14:30 Temperature Pulse Rate 61 63 61 Pulse Rate [Right Pedal (Dorsalis Pedis)] Respiratory Rate 18 18 18 Blood Pressure 126/55 L 141/56 H 130/67 Pulse Oximetry 98 98 98 Oxygen Delivery Room Air Room Air Room Air 05/21/23 15:30 05/21/23 16:15 05/21/23 10:20 Temperature Pulse Rate 62 64 79 Pulse Rate [Right Pedal (Dorsalis Pedis)] Respiratory Rate 18 19 Blood Pressure 139/60 143/60 H Pulse Oximetry 98 100 Oxygen Delivery Room Air Room Air 05/21/23 14:45 05/21/23 15:00 05/21/23 15:15 Temperature Pulse Rate 61 63 62 Pulse Rate [Right Pedal (Dorsalis Pedis)] Respiratory Rate 16 18 18 Blood Pressure 139/53 L 133/61 148/61 H Pulse Oximetry 98 98 98 Oxygen Delivery Room Air Room Air Room Air 05/21/23 15:45 05/21/23 16:00 05/21/23 16:30 Temperature Pulse Rate 65 66 64 Pulse Rate [Right Pedal (Dorsali
[2023-05-22] MEDS: CLOPIDOGREL BISULFATE 75 MG TABLET PO (09:06)
[2023-05-22] MEDS: METOPROLOL SUCCINATE EXT REL 25 MG TABCR PO (09:06)
[2023-05-22] MEDS: lisinopriL 20 MG TABLET PO (09:06)
[2023-05-22] MEDS: ROSUVASTATIN 10 MG TABLET PO (09:06)
[2023-05-22] MEDS: ASPIRIN 81 MG CHEWABLE TABLET PO (09:06)
--- NOTE | 2023-05-22 12:58 | PM.DS ---
DS: Admitting Diagnosis Discharge Date 05/22/2023 Admitting Diagnosis Chest pain DS: Discharge Diagnosis Discharge Diagnosis (1) NSTEMI (non-ST elevated myocardial infarction): Code(s): I21.4 - Non-ST elevation (NSTEMI) myocardial infarction Status: Acute (2) Chest pain: Code(s): R07.9 - Chest pain, unspecified Status: Acute (3) Elevated troponin: Code(s): R79.89 - Other specified abnormal findings of blood chemistry Status: Acute (4) Osteoporosis: Code(s): M81.0 - Age-related osteoporosis without current pathological fracture Status: Acute DS: Summary Hospital Course Hospital Course: 77-year-old female presented with chest pain suspicious for angina.? EKG with T-wave inversions lateral leads.? EKG 11/10 with no such changes present.? Troponin initial was 0.019 subsequent level at 0.067-0.082.? Diagnosed with non ST elevation DC. chest x-ray with no acute cardiopulmonary disease.? Cardiology has been consulted.? On aspirin and metoprolol added.? Nitroglycerin p.r.n..? Therapeutic-dose Lovenox started and received at 3:00 a.m. Echo and LAC planned as discussed by Cardiology team.? Continue statin. LDL at 86. Echo EF 45-50% basal inferior wall akinetic diastolic dysfunction trace TR. Status post left heart catheterization: 3rd portion of RCA with 95% long stenosis ostial septal branch of LAD with 80% stenosis: PCI to RCA with good results Two all antiplatelet therapy Follow-up with Cardiology LDL not optimal increased rosuvastatin to 10 mg at bedtime Time Spent with Patient Time attestation: Total time spent providing and/or coordinating discharge services: 35 minutes Exam Narrative: GENERAL: The patient is well developed, not in acute distress HEENT: Nonicteric sclerae, PERRLA, EOMI. Oropharynx clear. Moist mucous membranes. Conjunctivae appear well perfused. CHEST: Chest wall is nontender. HEART: Regular rate and rhythm without murmur, rubs, or gallops LUNGS: Clear to auscultation bilaterally. no respiratory distress ABDOMEN: Soft, positive bowel sounds, non-tender, no organomegaly. SKIN: No rash, no excessive bruising, petechiae, or purpura. NEUROLOGIC: Cranial nerves II-XII intact, alert and oriented x 3, no gross motor deficits EXTREMITIES: no edema, cyanosis or clubbing DS: Data Data Completed and Pending Completed studies during hospitalization: Exam Type: ? ? CA echo dop color flow w con Study Info Indications ?? ? - nstemi chest pain s/p cath Complete two-dimensional, color flow and Doppler transthoracic echocardiogram is performed with contrast to opacify the left ventricle and to improve the deliniation of the left ventricle endocardial borders. Account #: ? ? [id number] Contrast/Agitated Saline Contrast/Ag. Saline: ? ? Definity Amount: ? ? 2.00 ml Administered By: ? ? Kaden,? Liberty JON Existing IV Access: ? ? Yes IV Access Condition: ? ? patent with no signs of infiltration Reason for Poor Study: ? ? poor echocardiographic windows Summary ? 1. Technically suboptimal study due to poor sonographic images. ? 2. Left ventricular chamber dimension is normal. ? 3. Basal inferior wall is akinetic. ? 4. Left ventricular systolic function is mildly reduced, estimated at 45-50%. ? 5. The left ventricular diastolic function is grade I diastolic dysfunction. ? 6. E/e' 14 is mildly elevated. ? 7. There is mild aortic valve sclerosis. ? 8. The mitral valve has mildly calcified annulus. ? 9. There is trace tricuspid valve regurgitation. ? 10. No pulmonary hypertension, estimated pulmonary arterial systolic pressure is 27 mmHg. Left Ventricle ? E/e' 14 is mildly elevated. ? Basal inferior wall is akinetic. ? Technically suboptimal study due to poor sonographic images. ? Left ventricular chamber dimension is normal. ? Left ventricular systolic function is mildly reduced, estimated at 45-50%. ? The left ventricular
== END 2023-05-22 14:40 | disposition home or self-care (01) | DRG 322 ==
LOC: ANHED 05-21 02:42 → ANHIMU 05-21 06:26
PROVIDERS: Specialist; Admitting Provider Internal Medicine; Emergency Provider Emergency Medicine; PCP Family Medicine Adolescent Medicine; Visit Provider Internal Medicine
PROC: 4A023N7 Measurement of Cardiac Sampling and Pressure, Left Heart, Percutaneous Approach (ICD-10-PCS; CPT 93452; principal; 2023-05-21 12:00)
PROC: 027034Z Dilation of Coronary Artery, One Artery with Drug-eluting Intraluminal Device, Percutaneous Approach (ICD-10-PCS; 2023-05-21 12:00)
DX: I21.4 Non-ST elevation (NSTEMI) myocardial infarction (principal); K50.90 Crohn's disease, unspecified, without complications; I25.119 Atherosclerotic heart disease of native coronary artery with unspecified angina pectoris; I10 Essential (primary) hypertension; E78.2 Mixed hyperlipidemia; M81.0 Age-related osteoporosis without current pathological fracture; M19.90 Unspecified osteoarthritis, unspecified site; F17.210 Nicotine dependence, cigarettes, uncomplicated
CPT/HCPCS: 36415; 71046; 80053; 80061; 83690; 83735; 84484; 85025; 85610; 85730; 93005; 93458; 96372; 99285; A9270; C1725; C1769; C1874; C1887; C1894; C8929; C9600; G0378; J0583; J1644; J1650; J2250; J2305; J3010; J7030; J7040; Q9957

== ENCOUNTER 2023-06-17 15:00 | Outpatient (RCR) | payer MEDICARE, BC, SELFPAY | END 2023-06-30 15:31 | disposition home or self-care (01) | LOC: ANHCPREHAB 15:00 | PROVIDERS: PCP Family Medicine Adolescent Medicine; Visit Provider Internal Medicine Cardiovascular Disease | DX: Z95.5 Presence of coronary angioplasty implant and graft (principal) | CPT/HCPCS: 93798 ==

== ENCOUNTER 2023-06-18 04:00 | Observation (INO) | payer MEDICARE, BC, SELFPAY ==
[2023-06-18] VITALS (41 sets, daily range): BP systolic 128–166; BP diastolic 47–86; PULSE 51–85; RESP 10–25; TEMP 36.4–36.8; O2SAT 96–100; BMI 22.8
--- NOTE | ~2023-06-18 | XR_ITS ---
EXAMINATION: XR chest 2V DATE: 06/18/2023 04:02 INDICATION: Chest pressure. TECHNIQUE: Frontal and lateral views of the chest were obtained. COMPARISON: Chest 2 views 05/20/2023 FINDINGS: There is no pneumonia, pleural effusion, or pneumothorax. The heart size is normal. IMPRESSION: 1. No acute cardiopulmonary disease. Reviewed, dictated and finalized at location A. PRODUCER
--- NOTE | 2023-06-18 03:34 | ECG_ITS ---
Measurements Intervals [place] Rate: 57 P: 63 NC: 147 QRS: 50 QRSD: 77 T: 40 QT: 396 QTc: 388 Interpretive Statements SINUS BRADYCARDIA NO PREVIOUS ECG AVAILABLE FOR COMPARISON Electronically Signed On 06-18-2023 16:33:28 COBOL PROGRAMMER by Rob Nicole M.D.
[2023-06-18 03:53] LABS: Basophils Percent Auto 0.2 % (0.2-1.2); Eosinophils Absolute Auto 0.1 K/mm3 (0-0.3); Eosinophils Percent Auto 0.4 % (0-4.4); Hematocrit 36.5 % (37.0-47.0); Hemoglobin 11.5 g/dL (12.0-15.0); Immature Granulocyte Absolute 0.04 K/mm3 (0.00-0.031); Immature Granulocyte Percent A 0.3 % (0-0.5); Lymphocytes Absolute Auto 0.93 K/mm3 (0.9-3.2); Lymphocytes Percent Auto 7.8 % (18.3-44.2); Mean Corpuscular HGB Conc 31.5 g/dl (32-36); Mean Corpuscular Hemoglobin 29.5 pg (26-34); Mean Corpuscular Volume 93.6 fl (80-100); Mean Platelet Volume 9.3 fl (7.4-10.4); Monocytes Absolute Auto 0.5 K/mm3 (0.1-0.6); Monocytes Percent Auto 3.9 % (2.6-8.5); Neutrophils Absolute Auto 10.5 K/mm3 (1.3-6.7); Neutrophils Percent Auto 87.4 % (45.5-73.1); Platelet Count Result 335 k/mm3 (150-375); Red Cell Distribution Width 14.2 % (11.5-14.5)
[2023-06-18 04:05] LABS: Prothrombin Time 13.7 Seconds (11.1-14.7)
[2023-06-18] MEDS: NITROGLYCERIN SL 0.4 MG TABLET SUBLINGUAL (04:05)
[2023-06-18] MEDS: fentaNYL CITRATE INJ (*CRX) 100 MCG/2 ML VIAL 25 MCG IV PUSH ×2 (04:05→05:46)
[2023-06-18 04:06] LABS: Partial Thromboplastin Time 33.2 SECONDS (22.3-36.8)
[2023-06-18 04:09] LABS: Alanine Aminotransferase 19 U/L (6-35); Albumin Level 3.7 g/dL (3.5-5.1); Alkaline Phosphatase 118 U/L (38-126); Anion Gap 7 mmol/L (8-16); Aspartate Amino Transferase 29 U/L (14-36); Bilirubin,Total 0.6 mg/dL (0.2-1.3); Blood Urea Nitrogen 7 mg/dL (7-17); Carbon Dioxide 25 mmol/L (22-30); Chloride 104 mmol/L (98-107); Estimated CRCL calculation 48 ml/min; Estimated Glomerular Filt Rate > 60; Glucose 136 mg/dL (65-110); Lipase 59 U/L (23-300); Potassium 4.2 mmol/L (3.4-5.0); Sodium 136 mmol/L (137-145)
[2023-06-18 04:20] LABS: Troponin I < 0.012 ng/mL (0.000-0.034)
--- NOTE | 2023-06-18 05:13 | ED.GENADULT ---
HPI - General Adult General Chief complaint: Chest Pain Stated complaint: CHEST PRESSURE & BACK PAIN History of Present Illness HPI narrative: Patient 77-year-old female who presents emergency department with chief complaint of chest pain. Patient was a him into the hospital the 1st of this month and was found to have a non-STEMI had stent placement by Dr. Miranda the patient has been having some intermittent light discomfort in her chest but this evening had discomfort in her chest they were then was in her back as well the patient reports that the pain was improved with nitroglycerin Related Data Home Medications Medication Instructions Recorded Confirmed famotidine 10 mg tablet 10 mg PO DAILY 08/03/22 05/25/23 (Zantac-360 (famotidine)) vdcwprkd-cih-verge acid 200 1 tablet PO DAILY 08/03/22 05/25/23 mcg-collagen, hydrolyzed 25 mg chew tablet (Women's Multivitamin with Collagen) vitamin C 50 mg-biotin 1,250 mcg 1 tablet PO DAILY 11/06/22 05/25/23 chewable tablet (Bvym-Kuns-Nlupd (vit C-biotin)) Allergies Allergy/AdvReac Type Severity Reaction Status Date / Time leflunomide Allergy Intermediate HAND Verified 06/18/23 03:37 NUMBNESS Penicillins Allergy Mild HIVES Verified 06/18/23 03:37 adalimumab Allergy Unknown RASH Verified 06/18/23 03:37 azathioprine Allergy Unknown PANCREATITI Verified 06/18/23 03:37 S mercaptopurine Allergy Unknown Blister Verified 06/18/23 03:37 methotrexate Allergy Unknown Hives Verified 06/18/23 03:37 dexamethasone Allergy Swelling Verified 06/18/23 03:37 etanercept [From Enbrel] Allergy Anaphylactic Verified 06/18/23 03:37 Shock atorvastatin AdvReac Intermediate myalgias Verified 06/18/23 03:37 Opioids - Morphine Analogues AdvReac Intermediate Vomiting Verified 06/18/23 03:37 Review of Systems Review of Systems: A 10 system review of systems was completed on the patient and is negative except for what is stated in the HPI. Nursing and ancillary documentation was reviewed. [facility] Past Medical History Medical History Abnormal colonoscopy 09/04 ileitis Allergies Arthritis History of Crohn's disease History of hypertension NSTEMI (non-ST elevated myocardial infarction) (05/2023) Osteoporosis Skin cancer Surgical History Surgical History History of abdominal surgery Adhesiolysis History of appendectomy (~1957) History of bilateral tubal ligation (~1974) History of lumbar surgery (11/2022) History of partial colectomy (2010) Status post lumbar spine surgery for decompression of spinal cord Family History Family History Father Diabetes mellitus Heart disease Heart problem Hx of CABG Hypertension Sibling Diabetes mellitus Heart problem Heart disease Social History Social History Social History: Pt has had 3 pregnancies, 1 miscarriage. Date of last mammogram was August of 2022. Recently . Smoking packs per day: 1 Smoking cigarettes per day: 20.0 Years smoked: 30 Smoking pack-years: 30.00 Smoking status: Current every day smoker Tobacco type: cigarettes Second hand tobacco smoke exposure: No Smoking end date: 05/22/23 Additional smoking assessment comments: she has been weaning & cutting back, 50 + years of smoking Alcohol intake: never Alcohol use details: ONE DRINK PER MONTH Substance use: never Substance use type: does not use Lack of Transportation: No Lack of Food: Never True Current Housing: I Have Housing Concerned About Future Housing: No Difficulty Paying Gas/Electric Bills: No Difficulty Paying for Meds: No Currently Unemployed: No Education: High School Diploma/GED Difficulty w/ Childcare or Family Care: No Living arrangement
--- NOTE | 2023-06-18 05:45 | PC.NURSE ---
Pt received [address] De Leon verbal request for oncoming chest pain rated 10/10.
--- NOTE | 2023-06-18 05:48 | ECG_ITS ---
Measurements Intervals [place] Rate: 56 P: 54 CT: 157 QRS: 41 QRSD: 79 T: 26 QT: 428 QTc: 416 Interpretive Statements SINUS BRADYCARDIA BORDERLINE ECG COMPARED TO ECG 06/18/2023 05:48:22 NO SIGNIFICANT CHANGES Electronically Signed On 06-22-2023 8:06:53 ICT PROGRAMMER by Brayden Cheung D.O.
--- NOTE | 2023-06-18 05:50 | PC.NURSE ---
Pt stated chest pain decreased with single nitro tablet.
[2023-06-18] MEDS: fentaNYL CITRATE INJ (*CRX) 100 MCG/2 ML VIAL 50 MCG IV PUSH ×3 (07:11→20:23)
[2023-06-18] MEDS: NITROGLYCERIN OINTMENT 1 INCH DOSE TRANSDERM ×2 (07:12→16:50)
[2023-06-18 07:20] LABS: Troponin I < 0.012 ng/mL (0.000-0.034)
--- NOTE | 2023-06-18 07:35 | ECG_ITS ---
Measurements Intervals [place] Rate: 50 P: 27 GA: 144 QRS: 57 QRSD: 77 T: 36 QT: 437 QTc: 401 Interpretive Statements SINUS BRADYCARDIA COMPARED TO ECG 06/18/2023 03:32:46 NO SIGNIFICANT CHANGES Electronically Signed On 06-18-2023 16:34:06 VESSEL TRAFFIC OFFICER by Rob Nicole M.D.
[2023-06-18 09:50] LABS: Troponin I < 0.012 ng/mL (0.000-0.034)
--- NOTE | 2023-06-18 11:23 | PM.CNCAR ---
Assessment and Plan Assessment and plan (1) Chest pain: Code(s): R07.9 - Chest pain, unspecified Status: Acute Assessment and Plan: ER workup showed negative troponins x 3, EKG without any ischemic changes. Does get some relief with NTG, but also has very easily reproducible chest wall pain that elicits the same type of pain she has been having. She is not having an acute coronary syndrome at this time. Recommend treatment of musculoskeletal chest wall pain. Will start scheduled Tylenol for this. Since she does feel some relief with NTG, will increase her antianginal therapy. Continue Metoprolol at current dose, will not be able to uptitrate this as her heart rate already in the 50s. Will start her on Imdur. Anticipate discharge home tomorrow. Patient to follow up with Dr. Cheung. (2) CAD (coronary artery disease): Onset Date: 05/2023 Code(s): I25.10 - Atherosclerotic heart disease of [place] coronary artery without angina pectoris Status: Acute Assessment and Plan: Continue ASA, Plavix, statin, beta jeaneth. History of Present Illness History of Present Illness Consult date/time: 06/18/23 11:23 Requesting physician: Rashawn De Leon MD Consult reason: chest pain Reason For Visit: chest pain Narrative: We are consulted for chest pain. This is a patient of Dr. Cheung'stacy who had a recent hospitalization for NSTEMI. On 05/21/2023, she underwent cardiac catheterization by Dr. Flores which showed 95% stenosis in the third portion of a dominant RCA. Underwent PCI with 4.0mm x 22mm SCOTT with excellent results. She was started on ASA and Plavix. Discharged home on 05/22. Patient reports she began having chest pain and back pain starting yesterday that was constant. Since the pain wasn't resolving at home, she presented to ED for further evaluation. NTG helps with the pain somewhat. ER workup showed negative troponins x 3, EKG without any ischemic changes. Patient reports being fully compliant to her DAPT. Review of Systems Review of Systems: All systems reviewed & are unremarkable except as noted in HPI and below (HPI) [facility] Past Medical History Medical History Abnormal colonoscopy 09/04 ileitis Allergies Arthritis History of Crohn's disease History of hypertension NSTEMI (non-ST elevated myocardial infarction) (05/2023) Osteoporosis Skin cancer Surgical History Surgical History History of abdominal surgery Adhesiolysis History of appendectomy (~1957) History of bilateral tubal ligation (~1974) History of lumbar surgery (11/2022) History of partial colectomy (2010) Status post lumbar spine surgery for decompression of spinal cord Family History Family History Father Diabetes mellitus Heart disease Heart problem Hx of CABG Hypertension Sibling Diabetes mellitus Heart problem Heart disease Social History Social History Social History: Pt has had 3 pregnancies, 1 miscarriage. Date of last mammogram was August of 2022. Recently . Smoking packs per day: 1 Smoking cigarettes per day: 20.0 Years smoked: 30 Smoking pack-years: 30.00 Smoking status: Current every day smoker Tobacco type: cigarettes Second hand tobacco smoke exposure: No Smoking end date: 05/22/23 Additional smoking assessment comments: she has been weaning & cutting back, 50 + years of smoking Alcohol intake: never Alcohol use details: ONE DRINK PER MONTH Substance use: never Substance use type: does not use Lack of Transportation: No Lack of Food: Never True Current Housing: I Have Housing Concerned About Future Housing: No Difficulty Paying Gas/Electric Bills: No Difficulty Paying for Meds: No Currently Unemployed: No Education: High School Diploma/GED
--- NOTE | 2023-06-18 11:30 | WPDHPUPDATE1 ---
Assessment and Plan Assessment and Plan (1) Chest pain: Status: Acute (2) CAD (coronary artery disease): Status: Acute [facility] Medical History Abnormal colonoscopy 09/04 ileitis Allergies Arthritis History of Crohn's disease History of hypertension NSTEMI (non-ST elevated myocardial infarction) (05/2023) Osteoporosis Skin cancer Surgical History History of abdominal surgery Adhesiolysis History of appendectomy (~7) History of bilateral tubal ligation (~1974) History of lumbar surgery (11/2022) History of partial colectomy (2010) Status post lumbar spine surgery for decompression of spinal cord Family History Father Diabetes mellitus Heart disease Heart problem Hx of CABG Hypertension Sibling Diabetes mellitus Heart problem Heart disease Social History Social History: Pt has had 3 pregnancies, 1 miscarriage. Date of last mammogram was August of 2022. Recently . Smoking packs per day: 1 Smoking cigarettes per day: 20.0 Years smoked: 30 Smoking pack-years: 30.00 Smoking status: Current every day smoker Tobacco type: cigarettes Second hand tobacco smoke exposure: No Smoking end date: 05/22/23 Additional smoking assessment comments: she has been weaning & cutting back, 50 + years of smoking Alcohol intake: never Alcohol use details: ONE DRINK PER MONTH Substance use: never Substance use type: does not use Lack of Transportation: No Lack of Food: Never True Current Housing: I Have Housing Concerned About Future Housing: No Difficulty Paying Gas/Electric Bills: No Difficulty Paying for Meds: No Currently Unemployed: No Education: High School Diploma/GED Difficulty w/ Childcare or Family Care: No Living arrangements: alone Occupation/Education: retired Gender identity (if verbalized by the patient): Female Sexual Orientation (if Verbalized by the Patient): Straight or Heterosexual Spiritual care concerns: No Agree to blood products: Yes Female Reproductive History Menstrual control method: none and permanent sterilization Menopause type: natural Total pregnancies: 3 Full term: 2 Premature: 0 Ab induced: 0 Ab spontaneous: 1 Ectopics: 0 Multiple births: 0
--- NOTE | 2023-06-18 12:17 | PM.IMHP ---
H&P: HPI History of Present Illness Date/Time: 06/18/23 12:17 Chief Complaint: Chest Pain Narrative: Mrs. Ward is a 77-year-old female, with a past medical history Crohn's disease, hypertension, NSTEMI, osteoporosis and skin cancer who presented to the emergency department with a chief complaint of chest pain.? Patient states her chest pain started around 8:00 p.m. last night patient states she had went to sleep on the couch when she was awakened with left chest pain that was substernal, stabbing, nonradiating, 03/30. Pt reports non-specific back pain, (does not radiate) was present during her chest pain episode. She denies any SOB, nausea, vomiting, fever, or chills. Patient states she was released from the hospital the beginning of this month status post stent placement by Dr. Miranda she reports since her procedure she has often had intermittent chest discomfort with moderate to mild excretion. She reports her chest pain improved after receiving nitroglycerin. Patient states she was started DAPT and has been compliant with her medication since her [facility]. ED workup, revealed negative troponin x3, EKG without any ischemic changes, given NTG that aided symptoms, easily reproducible chest pain continued. No signs of acute coronary syndrome, presenting symptoms highly suggested muscle skeletal chest wall pain, Cardiology consulted. Review of Systems Review of Systems: All systems reviewed & are unremarkable except as noted in HPI and below Constitutional: Constitutional: Reports no additional constitutional complaints Eyes: Eyes: Reports no additional eye complaints ENT: Reports Normal hearing present Gastrointestinal: Gastrointestinal: Reports no additional gastrointestinal complaints Musculoskeletal: Musculoskeletal: Reports no additional musculoskeletal complaints Neurologic: Reports system reviewed and no additional complaints, except as documented and Reports Normal hearing present Psychiatric: Psychiatric: Reports no additional psychiatric complaints [facility] Past Medical History Medical History Abnormal colonoscopy 09/04 ileitis Allergies Arthritis History of Crohn's disease History of hypertension NSTEMI (non-ST elevated myocardial infarction) (05/2023) Osteoporosis Skin cancer Surgical History Surgical History History of abdominal surgery Adhesiolysis History of appendectomy (~1956) History of bilateral tubal ligation (~1974) History of lumbar surgery (11/2022) History of partial colectomy (2010) Status post lumbar spine surgery for decompression of spinal cord Family History Family History Father Diabetes mellitus Heart disease Heart problem Hx of CABG Hypertension Sibling Diabetes mellitus Heart problem Heart disease Social History Social History Social History: Pt has had 3 pregnancies, 1 miscarriage. Date of last mammogram was August of 2022. Recently . Smoking packs per day: 1 Smoking cigarettes per day: 20.0 Years smoked: 30 Smoking pack-years: 30.00 Smoking status: Current every day smoker Tobacco type: cigarettes Second hand tobacco smoke exposure: No Smoking end date: 05/22/23 Additional smoking assessment comments: she has been weaning & cutting back, 50 + years of smoking Alcohol intake: never Alcohol use details: ONE DRINK PER MONTH Substance use: never Substance use type: does not use Lack of Transportation: No Lack of Food: Never True Current Housing: I Have Housing Concerned About Future Housing: No Difficulty Paying Gas/Electric Bills: No Difficulty Paying for Meds: No Currently Unemployed: No Education: High School Diploma/GED Difficulty w/ Childcare or Family Care: No Living arrangements: helen
[2023-06-18] MEDS: CLOPIDOGREL BISULFATE 75 MG TABLET PO (12:49)
[2023-06-18] MEDS: ROSUVASTATIN 10 MG TABLET PO (12:49)
--- NOTE | 2023-06-18 13:45 | ADMGEN ---
This patient, Izzy Ward, was admitted to [address] [facility] Surg Room 302-01. Patient/family oriented to hospital policies and general routines including ID bracelet, bed and alarms, visiting hours, pain management, procedures, bathroom and other care routines, personal items, smoking policy, room service/diet, and visiting hours. Information on how to activate the Rapid Response Team has been discussed. Patient/Family are encouraged to report perceived risks to care and to ask questions if they do not understand what they are told or what they should do.
--- NOTE | 2023-06-18 16:41 | ECG_ITS ---
Measurements Intervals [place] Rate: 61 P: 6 PA: 130 QRS: 14 QRSD: 73 T: 13 QT: 401 QTc: 405 Interpretive Statements SINUS RHYTHM COMPARED TO ECG 06/18/2023 05:48:22 SINUS RHYTHM NOW PRESENT Electronically Signed On 06-20-2023 14:19:28 COMMUNITY RELATIONS COORDINATOR by Rob Nicole M.D.
[2023-06-18 16:48] LABS: Cholesterol 116 mg/dL (0-200); HDL Direct 44 mg/dL; Triglycerides 66 mg/dL (<150)
[2023-06-18] MEDS: ISOSORBIDE MONONITRATE 30 MG TAB.ER.24H PO (16:50)
[2023-06-18] MEDS: METOPROLOL SUCCINATE EXT REL 25 MG TABCR PO (16:50)
[2023-06-18 16:59] LABS: LDL Cholesterol Direct 56 mg/dL
[2023-06-18 17:00] LABS: Troponin I < 0.012 ng/mL (0.000-0.034)
[2023-06-18 19:26] LABS: Troponin I < 0.012 ng/mL (0.000-0.034)
--- NOTE | 2023-06-18 19:41 | ECG_ITS ---
Measurements Intervals [place] Rate: 67 P: 60 [place]: 142 QRS: 38 QRSD: 70 T: 30 QT: 395 QTc: 419 Interpretive Statements SINUS RHYTHM COMPARED TO ECG 06/18/2023 16:54:51 NO SIGNIFICANT CHANGES Electronically Signed On 06-20-2023 14:21:19 FIELD SALES MANAGER by Rob Nicole M.D.
[2023-06-18] MEDS: LORazepam (*CRX) 1 MG TABLET PO (22:40)
[2023-06-18] MEDS: oxyCODONE HCL (*CRX) 5 MG TAB IR 10 MG PO (22:40)
[2023-06-19] VITALS: BP 114/41; PULSE 60; PULSE 65; RESP 20; TEMP 36.4; O2SAT 95
[2023-06-19] MEDS: NITROGLYCERIN OINTMENT 1 INCH DOSE TRANSDERM ×3 (01:00→13:03)
[2023-06-19 04:00] VITALS: BP 133/42; PULSE 63; PULSE 66; RESP 22; TEMP 36.6; O2SAT 96
[2023-06-19 06:45] LABS: Alanine Aminotransferase 13 U/L (6-35); Albumin Level 3.5 g/dL (3.5-5.1); Alkaline Phosphatase 108 U/L (38-126); Anion Gap 9 mmol/L (8-16); Aspartate Amino Transferase 19 U/L (14-36); Blood Urea Nitrogen 11 mg/dL (7-17); Calcium 8.6 mg/dL (8.4-10.2); Carbon Dioxide 23 mmol/L (22-30); Chloride 102 mmol/L (98-107); Estimated CRCL calculation 48 ml/min; Estimated Glomerular Filt Rate > 60; Glucose 125 mg/dL (65-110); Sodium 134 mmol/L (137-145)
[2023-06-19 07:42] LABS: Thyroid Stimulating Hormone Reflex 0.529 uIU/mL (0.465-4.68)
[2023-06-19] MEDS: ONDANSETRON INJ 4 MG/2 ML VIAL IV PUSH (07:54)
[2023-06-19 08:00] VITALS: BP 135/83; PULSE 79; PULSE 84; RESP 22; TEMP 36.4; O2SAT 97
[2023-06-19 09:37] VITALS: PULSE 86
[2023-06-19] MEDS: METOPROLOL SUCCINATE EXT REL 25 MG TABCR PO (09:37)
[2023-06-19] MEDS: ISOSORBIDE MONONITRATE 30 MG TAB.ER.24H PO (09:37)
[2023-06-19] MEDS: ASPIRIN 81 MG CHEWABLE TABLET PO (09:37)
[2023-06-19] MEDS: CLOPIDOGREL BISULFATE 75 MG TABLET PO (09:37)
[2023-06-19] MEDS: ROSUVASTATIN 10 MG TABLET PO (09:37)
[2023-06-19] MEDS: oxyCODONE HCL (*CRX) 5 MG TAB IR 10 MG PO (09:43)
--- NOTE | 2023-06-19 11:31 | PM.PNCARD ---
Progress Note: A&P Assessment and Plan (1) Chest pain: Code(s): R07.9 - Chest pain, unspecified Status: Acute Assessment and Plan: Negative troponins x 5, multiple serial EKGs without any ischemic changes. Does get some relief with NTG, but also has very easily reproducible chest wall pain that elicits the same type of pain she has been having. She is not having an acute coronary syndrome. Recommend treatment of musculoskeletal chest wall pain. Since she does feel some relief with NTG, will increase her antianginal therapy. Continue Metoprolol at current dose, will not be able to uptitrate this as her heart rate already in the 50s. Started her on Imdur, continue. Okay to discharge home from my standpoint. Patient to follow up with Dr. Cheung. (2) CAD (coronary artery disease): Onset Date: 05/2023 Qualifiers: Coronary Disease-Associated Artery/Lesion type: [place] artery Associated angina: without angina Code(s): I25.10 - Atherosclerotic heart disease of [place] coronary artery without angina pectoris Status: Acute Assessment and Plan: Continue ASA, Plavix, statin, Imdur, Toprol Subjective Date/time seen: 06/19/23 11:31 Interval history: Reason for visit: Chest pain HPI: We are consulted for chest pain. This is a patient of Dr. Cheung'stacy who had a recent hospitalization for NSTEMI. On 05/21/2023, she underwent cardiac catheterization by Dr. Flores which showed 95% stenosis in the third portion of a dominant RCA. Underwent PCI with 4.0mm x 22mm SCOTT with excellent results. She was started on ASA and Plavix. Discharged home on 05/22. Patient reports she began having chest pain and back pain starting yesterday that was constant. Since the pain wasn't resolving at home, she presented to ED for further evaluation. NTG helps with the pain somewhat. ER workup showed negative troponins x 3, EKG without any ischemic changes. Patient reports being fully compliant to her DAPT. Date of service 06/19: Feeling better this morning. She is wanting to go home. Review of Systems Review of Systems: All systems reviewed & are unremarkable except as noted in HPI and below (HPI) Exam Const: General: comfortable and no acute distress HENMT: Mouth: Yes moist mucous membranes Eyes: General: appearance normal, both eyes and all related structures Sclera: sclerae normal Neck: Neck: supple Resp: Effort & Inspection: normal respiratory effort Cardio: Rate: regular rate Rhythm: regular rhythm Skin: General skin exam: normal color Neuro: Speech: normal speech Psych: Mental Status: mental status grossly normal Affect: normal affect Objective Data Vital Signs Vital Signs: Vital Signs - 24 hr 06/18/23 11:46 06/18/23 12:30 06/18/23 12:47 Temperature Pulse Rate 59 L 64 Respiratory Rate 11 L 22 H Blood Pressure 151/53 H Pulse Oximetry 98 99 Oxygen Delivery 06/18/23 13:03 06/18/23 13:15 06/18/23 13:16 Temperature Pulse Rate 60 54 L 58 L Respiratory Rate 19 24 H 23 H Blood Pressure 163/62 H Pulse Oximetry 96 98 97 Oxygen Delivery 06/18/23 16:00 06/18/23 16:50 06/18/23 13:38 Temperature 36.4 C L Pulse Rate 57 L 85 59 L Respiratory Rate 20 Blood Pressure 154/51 H Pulse Oximetry 100 Oxygen Delivery 06/18/23 16:00 06/18/23 20:00 06/18/23 20:00 Temperature 36.8 C Pulse Rate 59 L 63 70 Respiratory Rate 18 Blood Pressure 139/49 L Pulse Oximetry 97 Oxygen Delivery 06/19/23 00:00 06/19/23 00:00 06/19/23 04:00 Temperature 36.4 C L Pulse Rate 60 65 63 Respiratory Rate 20 Blood Pressure 114/41 L Pulse Oximetry 95 Oxygen Delivery 06/19/23 04:00 06/19/23 08:29 06/19/23 09:37 Temperature 36.6 C Pulse Rate 66 86 Respiratory Rate 22 H Blood Pressure 133/42 L Pulse Oximetry 96 Oxygen Delivery Room Air 06/19/23 08:00 Temperature 36.4 C L Pulse Rate 79 Respiratory Rate 22 H Blood Pressure 135/8
[2023-06-19 12:00] VITALS: PULSE 71
--- NOTE | 2023-06-19 13:53 | PM.DS ---
DS: Admitting Diagnosis Discharge Date 06/19/2023 Admitting Diagnosis Chest pain CAD DS: Discharge Diagnosis Discharge Diagnosis (1) Chest pain: Code(s): R07.9 - Chest pain, unspecified Status: Acute (2) Presence of coronary artery bypass graft stent: Onset Date: 05/2023 Code(s): Z95.5 - Presence of coronary angioplasty implant and graft; Z95.1 - Presence of aortocoronary bypass graft Status: Acute DS: Summary Hospital Course Reason for hospitalization: Patient was admitted with chest pain Hospital Course: H&P History of Present Illness Date/Time: 06/18/23? 12:17 Chief Complaint: Chest Pain Narrative: Mrs. Ward is a 77-year-old female, with a past medical history Crohn's disease, hypertension, NSTEMI, osteoporosis and skin cancer who presented to the emergency department with a chief complaint of chest pain.? Patient states her chest pain started around 8:00 p.m. last night patient states she had went to sleep on the couch when she was awakened with left chest pain that was substernal, stabbing, nonradiating, 10. Pt reports non-specific back pain, (does not radiate) was present during her chest pain episode. She denies any SOB, nausea, vomiting, fever, or chills.? Patient states she was released from the hospital the beginning of this month status post stent placement by Dr. Miranda she reports since her procedure she has often had intermittent chest discomfort with moderate to mild excretion. She reports her chest pain improved after receiving nitroglycerin.? Patient states she was started DAPT and has been compliant with her medication since her [facility]. ED workup, revealed negative troponin x3, EKG without any ischemic changes, given NTG that aided symptoms, easily reproducible chest pain continued. Cardiology consulted. 06/19/2023: Pt seen this am by the bedside, she denies any overnight complications. She denies any chest pain, citing her chest tenderness has since resolved. She denies any n/v, fever chills or SOB. Pt is requesting to be discharged home. Status at Discharge Functional status at discharge: independent ambulation Overall status at discharge: patient is back to baseline Time Spent with Patient Time attestation: Total time spent providing and/or coordinating discharge services: Time spent: Greater than 30 minutes Exam Const: General: cooperative, healthy appearing, comfortable, no acute distress, alert and awake Nutritional Appearance: average body habitus Orientation/consciousness: oriented to person, oriented to place, oriented to time and patient oriented x3 Limitations: no limitations HENMT: Head: normal to inspection Eyes: General: appearance normal, both eyes and all related structures Alignment and Position: alignment normal EOM: EOMs intact bilaterally Neck: Neck: normal visual inspection Carotids: normal carotid upstroke Lymphatic: no lymphadenopathy noted Chest: Chest palpation & inspection: normal inspection of the chest and normal palpation of entire chest wall Resp: Effort & Inspection: normal respiratory effort Auscultation: clear to auscultation bilaterally Percussion: percussion normal Cardio: Jugular venous distension: no JVD Palpation: normal PMI Rate: regular rate Rhythm: regular rhythm Heart sounds: S1 normal heart sound present and S2 normal heart sound present GI: Inspection: normal to inspection Auscultation: normal bowel sounds Skin: General skin exam: normal color Neuro: General: oriented to person, oriented to place, oriented to time and patient oriented x3 Speech: normal speech Gait exam (Neuro): Normal gait present Psych: Appearance: grossly normal Speech and movement: Normal speech and movement present Affect: normal affect Attitude: cooperative Insight: Good insight present (Psych) Judgement: Good judgement present (Psych) DS: Data Data Completed and Pending Labs on day of discharge: Labs from last 24 hours 1
== END 2023-06-19 14:30 | disposition home or self-care (01) ==
LOC: ANHED 07:43 → ANHIMU 08:18 → ANH3MEDSUR 13:11
PROVIDERS: Admitting Provider Student in an Organized Health Care Education/Training Program; Emergency Provider Emergency Medicine; PCP Family Medicine Adolescent Medicine; Visit Provider Nurse Practitioner
DX: R07.9 Chest pain, unspecified (principal); I25.10 Atherosclerotic heart disease of native coronary artery without angina pectoris; Z95.1 Presence of aortocoronary bypass graft; R00.1 Bradycardia, unspecified; I10 Essential (primary) hypertension; E78.2 Mixed hyperlipidemia; I25.2 Old myocardial infarction; K50.90 Crohn's disease, unspecified, without complications; K50.919 Crohn's disease, unspecified, with unspecified complications; C44.90 Unspecified malignant neoplasm of skin, unspecified; M81.0 Age-related osteoporosis without current pathological fracture; F17.210 Nicotine dependence, cigarettes, uncomplicated; Z79.82 Long term (current) use of aspirin; Z79.01 Long term (current) use of anticoagulants; Z79.891 Long term (current) use of opiate analgesic; Z79.899 Other long term (current) drug therapy; Z82.49 Family history of ischemic heart disease and other diseases of the circulatory system
CPT/HCPCS: 36415; 71046; 80053; 80061; 83690; 84443; 84484; 85025; 85610; 85730; 93005; 96374; 96375; 96376; 97161; 99285; A9270; G0378; J2405; J3010

== ENCOUNTER 2023-06-25 12:23 | Inpatient (IN) | payer MEDICARE, BC, SELFPAY ==
[2023-06-25] VITALS (10 sets, daily range): BP systolic 108–125; BP diastolic 49–62; PULSE 74–84; RESP 16–165; TEMP 36.9; O2SAT 95–100
--- NOTE | ~2023-06-25 | MR_ITS ---
EXAMINATION: MR MRCP wo/w con/w 3D wo ind DATE: 06/27/2023 10:38 INDICATION: Possible gallbladder mass on CT TECHNIQUE: Magnetic resonance imaging (MRI) of the abdomen was performed without and with intravenous contrast. Sequences included coronal T2-weighted SS-FSE ARC, coronal T2-weighted FS SS-FSE, coronal T2-weighted 2D FS FIESTA, Water:Coronal LAVA-Flex, sagittal T2-weighted SS-FSE ARC, axial SSFSE ARC, axial 3D DualEcho, axial DWI B=600, axial T1-weighted LAVA, FAT:Coronal LAVA-Flex, and coronal in and opposed phase LAVA-Flex. Thick-slab T2-weighted FRFSE-XL images were obtained for magnetic resonance cholangiopancreatography (MRCP). Maximum intensity projection 3-D reconstructions of the volumetric data were created by the technologist. Postcontrast sequences included a time course of axial T1-weig hted LAVA, FAT:Coronal LAVA-Flex, coronal in and opposed phase LAVA-Flex, and Water:Coronal LAVA-Flex . COMPARISON: CT, 06/26/2023 CONTRAST: Multihance, cc FINDINGS: ABDOMEN MRI: The gallbladder is distended. There is a 4.5 cm stone of the gallbladder corresponding t o the mass questioned on CT. No abnormal internal enhancement is present in the stone. There is mild wall thickening of the gallbladder. There is mild wall edema of the gallbladder and trace pericholecy stic fluid. There is a 10 mm hemangioma of the right hepatic lobe. The spleen, pancreas, and adrenal glands are normal. There is mild periportal lymphadenopathy. The right kidney is unremarkable. There is a 7 mm hemorrhagic cyst of left kidney. There are no dilated loops of bowel. There is mild lumbar spondylosis. ABDOMEN MRCP: There is no intrahepatic or extrahepatic biliary dilatation. The pancreatic duct is nor mal in course and caliber. No biliary stones or stricture identified. IMPRESSION: 1. Large gallstone corresponding to the CT finding in question with additional findings consistent wi th acute cholecystitis. 2. Periportal lymphadenopathy, likely reactive. Reviewed, dictated and finalized at location F. ND CLASS WELDER IMPRESSION: 1. Large gallstone corresponding to the CT finding in question with additional findings consistent with acute cholecystitis. 2. Periportal lymphadenopathy, likely reactive.
--- NOTE | ~2023-06-25 | CT_ITS ---
EXAMINATION: CT brain wo con DATE: 06/25/2023 19:19 INDICATION: Altered mental status. Dizziness. TECHNIQUE: Computed tomography (CT) of the head was performed without intravenous contrast. The mA wa s adjusted according to patient size. Iterative reconstruction technique was employed. The dose-lengt h product was 605.33 mGy-cm. COMPARISON: None FINDINGS: There are scattered areas of low attenuation in the cerebral white matter. There is no intr acranial hemorrhage, acute infarction, or abnormal intracranial mass lesion. The ventricles are iliana l in size. There are likely changes of ocular lens replacement surgeries. There is mild mucosal thick ening in the paranasal sinuses. The mastoid air cells are normal. IMPRESSION: 1. Extensive nonspecific cerebral white matter disease, which likely represents chronic small vessel ischemic disease. Reviewed, dictated and finalized at location E. ISION HONER
--- NOTE | ~2023-06-25 | CT_ITS ---
CT of the Abdomen and Pelvis: Indication: Dropping hemoglobin Technique: 2.5 mm axial scans were obtained through the abdomen and pelvis following intravenous adm inistration of 100 cc of Omnipaque 350. Dose reduction technique was used on this scan by utilizing a utomated exposure control and iterative reconstruction technique. The dose-length product (DLP) was 2 82.58 mGy-cm. Findings: Scans through the lung bases are unremarkable. There is a 1.3 cm hypodense, noncystic lesion in the liver (axial image 14). There is a 3.3 x 2.5 cm masslike structure near the gallbladder neck which appears most like an enhancing soft tissue mass ra ther than stone. There is associated gallbladder distention and mild gallbladder wall thickening/hype remia. The spleen, pancreas, adrenals and kidneys are within normal limits. There are atherosclerotic calcifications of the aorta. There are mildly enlarged kary hepatis lymph nodes. No bowel obstruction or bowel wall thickening. There is no evidence to suggest acute appendicitis. Images through the pelvis were performed. Urinary bladder unremarkable. No pelvic mass seen. No ascit es. Impression: 3.3 x 2.5 cm mass at the gallbladder neck region appears most suggestive of enhancing soft tissue mas s rather than stone. Therefore, this is suspicious for gallbladder neoplasm until proven otherwise. C onsider ultrasound and/or pre-/postcontrast MRI to assess for internal vascularity/enhancement. Tumef active sludge or atypical appearing gallstone would be alternative considerations, though felt to be less likely. 1.3 cm indeterminate hypodense hepatic lesion, as above. Given findings in the gallbladder, metastasi s is certainly a consideration. Again, pre and postcontrast MR could be considered to further evaluat e, versus attempted tissue sampling. Associated gallbladder distention and mild gallbladder wall thickening could reflect superimposed acu te cholecystitis. Correlate clinically. Enlarged kary hepatis lymph nodes. These could be reactive versus glo metastatic disease. Reviewed, dictated and finalized at [facility]. TY HOME DEMONSTRATION AGENT Impression: 3.3 x 2.5 cm mass at the gallbladder neck region appears most suggestive of enh ancing soft tissue mass rather than stone. Therefore, this is suspicious for ga llbladder neoplasm until proven otherwise. Consider ultrasound and/or pre-/post contrast MRI to assess for internal vascularity/enhancement. Tumefactive sludge or atypical appearing gallstone would be alternative considerations, though fe lt to be less likely. 1.3 cm indeterminate hypodense hepatic lesion, as above. Given findings in the gallbladder, metastasis is certainly a consideration. Again, pre and postcontra st MR could be considered to further evaluate, versus attempted tissue sampling . Associated gallbladder distention and mild gallbladder wall thickening could re flect superimposed acute cholecystitis. Correlate clinically. Enlarged kary hepatis lymph nodes. These could be reactive versus glo metast atic disease.
--- NOTE | ~2023-06-25 | MR_ITS ---
MRI of the brain Clinical History: Disorientation Technique: Axial and sagittal T1-weighted images were acquired. These were followed by axial T2-weigh annmarie, diffusion weighted, gradient, and FLAIR images. Following intravenous administration of 10 cc Mu ltiHance gadolinium, T1-weighted fat-sat imaging was performed in the axial and coronal planes. Findings: There is no acute infarct, acute intracranial hemorrhage, or mass lesion. There is extensiv e chronic white matter disease throughout the periventricular white matter bilaterally, and centrally in the alicja. Focal hemosiderin in the superior paramedian right frontal lobe represents sequela of p rior microhemorrhage. Ventricles and subarachnoid spaces are mildly dilated. Orbits are unremarkable. Paranasal sinuses and mastoid air cells are clear. Major intracranial flow voids are intact. Sagittal midline structures are intact. No abnormal postcontrast enhancement identified. IMPRESSION: Extensive chronic microvascular ischemic change. No acute infarct, acute intracranial hemorrhage, or mass lesion. Probable focal remote microhemorrhage in the right paramedian frontal lobe. Reviewed, dictated and finalized at [facility]. IRONER
--- NOTE | ~2023-06-25 | US_ITS ---
EXAMINATION: US abdomen limited DATE: 06/27/2023 10:54 INDICATION: Right upper quadrant pain TECHNIQUE: Multiple grayscale and Doppler ultrasound images of the abdomen were obtained. COMPARISON: CT, 06/26/2023 FINDINGS: The head and body of the pancreas are normal. The pancreatic tail is obscured by bowel gas. The liver is normal with normal echogenicity and echotexture. No surface nodularity. Normal hepatope odilia flow in the main portal vein. There is a large stone in the gallbladder. The gallbladder is mildl y distended. There is mild wall thickening of the gallbladder. The normal common bile duct measures 6 mm. There was no sonographic Desouza sign. IMPRESSION: 1. Cholelithiasis with evidence of cholecystitis. Reviewed, dictated and finalized at location F. ELING NURSE
--- NOTE | ~2023-06-25 | CT_ITS ---
CT ANGIOGRAM NECK AND HEAD History: Lightheadedness, dizziness. Technique: Serial spiral axial images through the head and neck were obtained during arterial phase I V injection of 100 cc of Omnipaque 350. 3-D postprocessing and MIP images were then reconstructed on the remote workstation. Dose reduction technique was used on this scan by utilizing automated exposur e control and iterative reconstruction technique. The dose-length product (DLP) was 936.74 mGy-cm. CTA neck findings: Lateral vertebral arteries are patent, without significant stenosis. Bilateral co mmon carotid, internal carotid, and external carotid arteries are patent. There is extensive calcifie d and soft plaque at the proximal right internal carotid artery, with high-grade stenosis of 95% in d egree. There is calcified plaque at the left carotid bifurcation, with low-grade, 10% stenosis. The p roximal right internal carotid artery demonstrates 95% stenosis relative to the normal distal artery lumen diameter. The proximal left internal carotid artery demonstrates 10% stenosis relative to the n ormal distal artery lumen diameter. CTA head findings: Distal internal carotid arteries, middle cerebral arteries, and anterior cerebral arteries are patent. Distal vertebral arteries, basilar artery, and posterior cerebral arteries are p atent. There are areas of low to possibly moderate grade stenosis in the cavernous portions of the di stal internal carotid arteries, with atherosclerotic calcification present. No large vessel occlusion or critical stenosis evident. No aneurysm. Impression: High-grade, 95% stenosis at the proximal right internal carotid artery. Low-grade, 10% stenosis at the proximal left internal carotid artery. Low to moderate grade stenoses in the cavernous portions of the distal internal carotid artery relate d to atherosclerotic ossifications. Reviewed, dictated and finalized at location . CARE HOME MOTHER Impression: High-grade, 95% stenosis at the proximal right internal carotid artery. Low-grade, 10% stenosis at the proximal left internal carotid artery. Low to moderate grade stenoses in the cavernous portions of the distal internal carotid artery related to atherosclerotic ossifications.
--- NOTE | ~2023-06-25 | XR_ITS ---
EXAMINATION: XR wrist LT min 3V DATE: 06/25/2023 19:23 INDICATION: Left wrist pain. Fall. TECHNIQUE: 4 views of left wrist were obtained. COMPARISON: None. FINDINGS: Bone alignment is normal. No fracture. There is mild osteoarthritis of triscaphe joint and first interphalangeal joint. IMPRESSION: 1. Mild polyarticular osteoarthritis. Reviewed, dictated and finalized at location E. NTIFIC PHOTOGRAPHER
[2023-06-25 18:22] LABS: Appearance Urine Cloudy (Clear); Bacteria Urine 1+ /hpf; Bilirubin Urine 2+ (Negative); Blood Urine Negative (Negative); Color Urine Dark Yellow (Yellow); Glucose Urine UA Negative (Negative); Ketones Urine Trace mg/dL (Negative); Leukocyte Esterase Ur Trace LEU/UL (Negative); Need Manual Microscopic Reviewed; Nitrate Urine Negative (Negative); Non Pathogenic Casts 0-2; Protein Urine 1+ mg/dL (Negative); Specific Grav Ur 1.022 (1.001-1.035); Squamous Epithelial Cell Urine Few /hpf (Few); WBC Urine 0-5 /hpf
[2023-06-25 18:23] LABS: Add Urine Microscopic? YES
--- NOTE | 2023-06-25 19:03 | ED.AMS ---
HPI - Altered Mental Status General Chief Complaint: Altered Mental Status Stated Complaint: confusion/post op weeks ago Time Seen by Provider: 06/25/23 18:42 Source: patient and old records reviewed Mode of arrival: ambulatory Limitations: no limitations History of Present Illness HPI narrative: Patient is a 77-year-old female who presents the ED with report of dizziness, unsteady gait. Patient reports she has been feeling slightly dizzy/lightheaded, feeling off balance intermittently for the last 3-4 days. Symptoms have been worsening. Worse with movement/walking/ambulating. She did have a fall around 3 days ago, in which she tripped and fell against a wall. She did hit her left wrist against the wall. She does not think she hit her head, but is not sure. Family member states patient has also had intermittent confusion, disorientation, slow responses over the last 3 days, in addition to hematuria. Patient notes she underwent cardiac stenting last April and has been started on several new medications regarding this. She denies focal weakness, numbness, headaches, vision changes, abdominal pain, nausea, vomiting, dysuria, fevers, cough or cold symptoms. Patient does admit to not eating and drinking as much as she should. Related Data Home Medications Medication Instructions Recorded Confirmed famotidine 10 mg tablet 10 mg PO DAILY 08/03/22 06/24/23 (Zantac-360 (famotidine)) wwvohrri-[id number]-[id number] acid 200 1 tablet PO DAILY 08/03/22 06/24/23 mcg-collagen, hydrolyzed 25 mg chew tablet (Women's Multivitamin with Collagen) vitamin C 50 mg-biotin 1,250 mcg 1 tablet PO DAILY 11/06/22 06/24/23 chewable tablet (Mzgx-Boko-Mdznl (vit C-biotin)) Allergies Allergy/AdvReac Type Severity Reaction Status Date / Time leflunomide Allergy Intermediate HAND Verified 06/25/23 18:38 NUMBNESS Penicillins Allergy Mild HIVES Verified 06/25/23 18:38 adalimumab Allergy Unknown RASH Verified 06/25/23 18:38 azathioprine Allergy Unknown PANCREATITI Verified 06/25/23 18:38 S mercaptopurine Allergy Unknown Blister Verified 06/25/23 18:38 methotrexate Allergy Unknown Hives Verified 06/25/23 18:38 dexamethasone Allergy Swelling Verified 06/25/23 18:38 etanercept [From Enbrel] Allergy Anaphylactic Verified 06/25/23 18:38 Shock atorvastatin AdvReac Intermediate myalgias Verified 06/25/23 18:38 Opioids - Morphine Analogues AdvReac Intermediate Vomiting Verified 06/25/23 18:38 Review of Systems Review of Systems: CONSTITUTIONAL: Denies fever, chills, or sweats. CARDIOVASCULAR: Denies chest pain, palpitations, or edema. RESPIRATORY: Denies cough or dyspnea. GASTROINTESTINAL: Denies abdominal pain, nausea, vomiting, or diarrhea. GENITOURINARY: See HPI. MUSCULOSKELETAL: Denies back pain, extremity pain, myalgia. NEUROLOGIC: See HPI. All systems reviewed & are unremarkable except as noted in HPI and below PMFSH Past Medical History Medical History Abnormal colonoscopy 09/04 ileitis Allergies Arthritis History of Crohn's disease History of hypertension NSTEMI (non-ST elevated myocardial infarction) (05/2023) Osteoporosis Skin cancer Surgical History Surgical History History of abdominal surgery Adhesiolysis History of appendectomy (~1956) History of bilateral tubal ligation (~1974) History of lumbar surgery (11/2022) History of partial colectomy (2010) Status post lumbar spine surgery for decompression of spinal cord Family History Family History Father Diabetes mellitus Heart disease Heart problem Hx of CABG Hypertension Sibling Diabetes mellitus Heart problem Heart disease Social History Social History Social History: Pt has had 3 pregnancies, 1 miscarriag
[2023-06-25 19:14] LABS: Basophils Percent Auto 0.3 % (0.2-1.2); Eosinophils Absolute Auto 0.1 K/mm3 (0-0.3); Eosinophils Percent Auto 0.8 % (0-4.4); Hematocrit 31.7 % (37.0-47.0); Hemoglobin 9.9 g/dL (12.0-15.0); Immature Granulocyte Absolute 0.04 K/mm3 (0.00-0.031); Immature Granulocyte Percent A 0.4 % (0-0.5); Lymphocytes Absolute Auto 1.62 K/mm3 (0.9-3.2); Lymphocytes Percent Auto 16.4 % (18.3-44.2); Mean Corpuscular HGB Conc 31.2 g/dl (32-36); Mean Platelet Volume 8.5 fl (7.4-10.4); Monocytes Absolute Auto 1.1 K/mm3 (0.1-0.6); Monocytes Percent Auto 10.8 % (2.6-8.5); Neutrophils Percent Auto 71.3 % (45.5-73.1); Platelet Count Result 500 k/mm3 (150-375); Red Blood Count 3.41 M/mm3 (4.2-5.4); Red Cell Distribution Width 14.1 % (11.5-14.5); White Blood Count 9.9 K/mm3 (4.5-10.0)
[2023-06-25 19:23] LABS: Alanine Aminotransferase 42 U/L (6-35); Albumin Level 3.4 g/dL (3.5-5.1); Alkaline Phosphatase 261 U/L (38-126); Anion Gap 9 mmol/L (8-16); Aspartate Amino Transferase 53 U/L (14-36); Bilirubin,Total 1.2 mg/dL (0.2-1.3); Blood Urea Nitrogen 12 mg/dL (7-17); Calcium 8.8 mg/dL (8.4-10.2); Carbon Dioxide 26 mmol/L (22-30); Chloride 99 mmol/L (98-107); Estimated CRCL calculation 37 ml/min; Estimated Glomerular Filt Rate > 60; Glucose 88 mg/dL (65-110); Lipase 70 U/L (23-300); Magnesium 1.8 mg/dL (1.6-2.3); Potassium 3.3 mmol/L (3.4-5.0); Sodium 134 mmol/L (137-145)
[2023-06-25 19:58] LABS: Influenza A QL RT-PCR Negative (Negative); Influenza B QL RT-PCR Negative (Negative); RSV RNA, RT-PCR Negative (Negative); SARS-CoV-2 RNA PCR Negative (Negative)
[2023-06-25] MEDS: SODIUM CHLORIDE 0.9% IV 1,000 ML 999 ML IV CONT (20:58)
[2023-06-25] MEDS: MECLIZINE HCL 25 MG TABLET PO (20:59)
[2023-06-25] MEDS: HYDROGEN PEROXIDE 3% SOLN(*SP) 473 ML BOTTLE (21:04)
[2023-06-26] VITALS (14 sets, daily range): BP systolic 122–146; BP diastolic 39–62; PULSE 54–79; RESP 16–23; TEMP 36.5–36.9; O2SAT 95–100; BMI 22.1
--- NOTE | 2023-06-26 00:01 | ECG_ITS ---
Measurements Intervals [place] Rate: 72 P: 64 TN: 150 QRS: 11 QRSD: 77 T: 13 QT: 362 QTc: 397 Interpretive Statements SINUS RHYTHM BASELINE ARTIFACT- I, III, AVL, AVF NORMAL ECG COMPARED TO ECG 06/18/2023 20:05:04 NO SIGNIFICANT CHANGES Electronically Signed On 06-26-2023 8:42:19 MATHEMATICS LECTURER by Brayden Cheung D.O.
[2023-06-26] MEDS: POTASSIUM CHLORIDE 20 MEQ PACKET (FOR LIQUID) 40 MEQ PO (00:20)
--- NOTE | 2023-06-26 02:24 | ADMGEN ---
This patient, Izzy Ward, was admitted to Medical Room 245-. Patient/family oriented to hospital policies and general routines including ID bracelet, bed and alarms, visiting hours, pain management, procedures, bathroom and other care routines, personal items, smoking policy, room service/diet, and visiting hours. Information on how to activate the Rapid Response Team has been discussed. Patient/Family are encouraged to report perceived risks to care and to ask questions if they do not understand what they are told or what they should do.
--- NOTE | 2023-06-26 08:25 | PM.IMHP ---
H&P: HPI History of Present Illness Date/Time: 06/26/23 08:25 Chief Complaint: Mrs. Ward is a 77-year-old female, with a past medical history Crohn's disease, hypertension, NSTEMI, osteoporosis and skin cancer who presents the ED with report of dizziness, unsteady gait.? Patient reports she has been feeling slightly dizzy/lightheaded, feeling off balance intermittently for the last 3-4 days.?? Narrative: Pt provides the following hx: Patient reports she has been feeling slightly dizzy/lightheaded, feeling off balance intermittently for the last 3-4 days.? She Worse with movement/walking/ambulating. Pt was recently seen and treated at this hospital and is admitted to this hospital 06/18/24 with c/o ongoing chest pain. 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 Patient admits her last fall was prior to last admission she denies any new falls, trauma or injury at this time, she admits to ongoing mild fatigue, decreased appetite. 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 Pt does reports feeling like she is off balance when she is ambulating. She any denies focal weakness, numbness, headaches, vision changes, abdominal pain, nausea, vomiting, dysuria, fevers, cough or cold symptoms.? ED workup: CT head was unrevealing. Blood pressure was in the 120s systolic with 40-50s diastolic. Orthostatic vitals in the ED were reportedly negative. Her EKG showed normal sinus rhythm. CT head showed no acute changes. UA showed trace LE, 0-5 WBC, and 1+ bacteria. Hgb is 9.9 (which is a drop from a week ago when it was 11.5). Patient received IV fluids, had ear irrigation, meclizine, but continued to have symptoms so she was subsequently admitted. She has been started on Rocephin presumably for possible UTI. Review of Systems Review of Systems: All systems reviewed & are unremarkable except as noted in HPI and below PMFSH Past Medical History Medical History Abnormal colonoscopy 09/04 ileitis Allergies Arthritis History of Crohn's disease History of hypertension NSTEMI (non-ST elevated myocardial infarction) (05/2023) Osteoporosis Skin cancer Surgical History Surgical History History of abdominal surgery Adhesiolysis History of appendectomy (~1957) History of bilateral tubal ligation (~1974) History of lumbar surgery (11/2022) History of partial colectomy (2010) Status post lumbar spine surgery for decompression of spinal cord Family History Family History Father Diabetes mellitus Heart disease Heart problem Hx of CABG Hypertension Sibling Diabetes mellitus Heart problem Heart disease Social History Social History Social History: Pt has had 3 pregnancies, 1 miscarriage. Date of last mammogram was August of 2022. Recently . Smoking packs per day: 1 Smoking cigarettes per day: 20.0 Years smoked: 30 Smoking pack-years: 30.00 Smoking status: Former smoker Second hand tobacco smoke exposure: No Additional smoking assessment comments: in the process of quitting, cutting back significantly Alcohol intake: never Alcohol use details: ONE DRINK PER MONTH Substance use: never Substance use type: does not use Do You Feel Safe in your Home?: Yes Lack of Transportation: No Lack of Food: Never True Current Housing: I Have Housing Concerned About Future Housing: No Difficulty Paying Gas/Electric Bills: No Difficulty Paying for Meds: No Currently Unemployed: No Education: Hig
--- NOTE | 2023-06-26 10:19 | WPDNEURCNPN ---
Assessment and Plan Assessment and plan (1) Disequilibrium: Code(s): R42 - Dizziness and giddiness Status: Acute (2) Confusion: Code(s): R41.0 - Disorientation, unspecified Status: Acute (3) Intermittent lightheadedness: Code(s): R42 - Dizziness and giddiness Status: Acute (4) Anemia: Qualifiers: Anemia type: unspecified type Qualified Code(s): D64.9 - Anemia, unspecified Code(s): D64.9 - Anemia, unspecified Status: Acute (5) Hematuria: Code(s): R31.9 - Hematuria, unspecified Status: Acute Plan Izzy Ward is a 77 year old female with a history of Crohn's disease, NSTEMI, skin cancer, HTN presenting due to feeling off balance, disequilibrium. She seems to have several causes for her symptoms such as recent drop in hgb due to undetermined source as well possible UTI. MRI brain is being obtained to evaluate for central cause of symptoms. Would also obtain CTA brain/carotid to evaluate for carotid stenosis and/or posterior circulation insufficiency. She has a cardiac history so also consider cardiogenic etiology such as dysrhythmia. If testing is all unrevealing, will likely benefit from vestibular therapy as outpatient. Mental status and neuro exam is normal today. Consult date: 06/26/23 Reason for consult: Dizziness, balance issues HPI: Izzy Ward is a 77 year old female with a history of Crohn's disease, NSTEMI, skin cancer, HTN presenting due to feeling off balance, disequilibrium. Patient reports feeling off balance for the past 3-4 days. Symptoms seem to be worse with walking. She did have a fall about three days ago when she tripped and fell agains a wall. Family also feels that she has been more disoriented and slow to respond over the past four days. They have also noted blood in her urine. Patient reports decresed PO intake as well. She presented to [place] ED on 06/25. CT head was unrevealing. Blood pressure was in the 120s systolic with 40-50s diastolic. Orthostatic vitals in the ED were reportedly negative. Her EKG showed normal sinus rhythm. CT head showed no acute changes. UA showed trace LE, 0-5 WBC, and 1+ bacteria. Hgb is 9.9 (which is a drop from a week ago when it was 11.5). Patient received IV fluids, had ear irrigation, meclizine, but continued to have symptoms so she was subsequently admitted. She has been started on Rocephin presumably for possible UTI. Her current medications include aspirin, Plavix, and Crestor. She also takes lorazepam 1mg qhs. Patient currently denies any lightheadedness or dizziness. She feels tired but otherwise has no complaints. Review of Systems Review of Systems: All systems reviewed & are unremarkable except as noted in HPI and below PMFSH Past Medical History Medical History Abnormal colonoscopy 09/04 ileitis Allergies Arthritis History of Crohn's disease History of hypertension NSTEMI (non-ST elevated myocardial infarction) (05/2023) Osteoporosis Skin cancer Surgical History Surgical History History of abdominal surgery Adhesiolysis History of appendectomy (~1956) History of bilateral tubal ligation (~1974) History of lumbar surgery (11/2022) History of partial colectomy (2010) Status post lumbar spine surgery for decompression of spinal cord Family History Family History Father Diabetes mellitus Heart disease Heart problem Hx of CABG Hypertension Sibling Diabetes mellitus Heart problem Heart disease Social History Social History Social History: Pt has had 3 pregnancies, 1 miscarriage. Date of last mammogram was August of 2022. Recently . Smoking packs per day: 1 Smoking cigarettes per day: 20.0 Years smoked: 30 Smoking pack-years: 30.00 Aaron
[2023-06-26] MEDS: ASPIRIN 81 MG CHEWABLE TABLET PO (10:37)
[2023-06-26] MEDS: CLOPIDOGREL BISULFATE 75 MG TABLET PO (10:37)
[2023-06-26] MEDS: lisinopriL 20 MG TABLET PO (10:38)
[2023-06-26] MEDS: ROSUVASTATIN 10 MG TABLET PO (10:38)
[2023-06-26] MEDS: MULTIVITAMINS /C LUTEIN (CENTRUM SILVER) TABLET *BKC 1 TAB PO (10:38)
[2023-06-26] MEDS: FAMOTIDINE 10 MG TABLET PO (10:38)
[2023-06-26] MEDS: METOPROLOL SUCCINATE EXT REL 25 MG TABCR PO (10:38)
--- NOTE | 2023-06-26 17:44 | PC.NURSE ---
Patient's concerning MRI results from 1455 were not called to nurse. The results of the abd/pelvis CT and head/neck CTA were not called to nurse either.
[2023-06-26 18:28] LABS: Hematocrit 35.4 % (37.0-47.0); Hemoglobin 10.9 g/dL (12.0-15.0)
[2023-06-26] MEDS: LORazepam (*CRX) 1 MG TABLET PO (21:16)
[2023-06-27] VITALS (13 sets, daily range): BP systolic 134–160; BP diastolic 34–51; PULSE 54–73; RESP 14–18; TEMP 36.5–36.9; O2SAT 98–100
[2023-06-27 00:22] LABS: Hematocrit 30.2 % (37.0-47.0); Hemoglobin 9.5 g/dL (12.0-15.0)
[2023-06-27 05:41] LABS: Basophils Percent Auto 0.3 % (0.2-1.2); Eosinophils Absolute Auto 0.1 K/mm3 (0-0.3); Eosinophils Percent Auto 1.4 % (0-4.4); Hematocrit 31.9 % (37.0-47.0); Hemoglobin 9.9 g/dL (12.0-15.0); Immature Granulocyte Absolute 0.06 K/mm3 (0.00-0.031); Immature Granulocyte Percent A 0.6 % (0-0.5); Lymphocytes Absolute Auto 1.39 K/mm3 (0.9-3.2); Lymphocytes Percent Auto 13.4 % (18.3-44.2); Mean Corpuscular Hemoglobin 28.8 pg (26-34); Mean Corpuscular Volume 92.7 fl (80-100); Mean Platelet Volume 8.4 fl (7.4-10.4); Monocytes Absolute Auto 0.8 K/mm3 (0.1-0.6); Monocytes Percent Auto 8.1 % (2.6-8.5); Neutrophils Absolute Auto 7.9 K/mm3 (1.3-6.7); Neutrophils Percent Auto 76.2 % (45.5-73.1); Platelet Count Result 503 k/mm3 (150-375); Red Blood Count 3.44 M/mm3 (4.2-5.4); Red Cell Distribution Width 13.9 % (11.5-14.5); White Blood Count 10.3 K/mm3 (4.5-10.0)
[2023-06-27 05:53] LABS: Alanine Aminotransferase 38 U/L (6-35); Alkaline Phosphatase 207 U/L (38-126); Anion Gap 6 mmol/L (8-16); Aspartate Amino Transferase 37 U/L (14-36); Bilirubin,Total 0.9 mg/dL (0.2-1.3); Blood Urea Nitrogen 7 mg/dL (7-17); Calcium 8.6 mg/dL (8.4-10.2); Carbon Dioxide 24 mmol/L (22-30); Chloride 108 mmol/L (98-107); Estimated CRCL calculation 37 ml/min; Estimated Glomerular Filt Rate > 60; Glucose 100 mg/dL (65-110); Potassium 3.7 mmol/L (3.4-5.0); Sodium 138 mmol/L (137-145)
[2023-06-27 08:34] LABS: Lipase 192 U/L (23-300)
--- NOTE | 2023-06-27 09:27 | WPDGICN ---
Assessment and Plan Assessment and plan (1) Abnormal CT scan, gastrointestinal tract: Code(s): R93.3 - Abnormal findings on diagnostic imaging of other parts of digestive tract Status: Acute Assessment and Plan: CT scan shows: 3.3 x 2.5 cm mass at the gallbladder neck region appears most suggestive of enhancing soft tissue mass rather than stone. Therefore, this is suspicious for gallbladder neoplasm until proven otherwise. Consider ultrasound and/or pre-/postcontrast MRI to assess for internal vascularity/enhancement. Tumefactive sludge or atypical appearing gallstone would be alternative considerations, though felt to be less likely. 1.3 cm indeterminate hypodense hepatic lesion, as above. Given findings in the gallbladder, metastasis is certainly a consideration. Again, pre and postcontrast MR could be considered to further evaluate, versus attempted tissue sampling. Associated gallbladder distention and mild gallbladder wall thickening could reflect superimposed acute cholecystitis. Correlate clinically. Enlarged kary hepatis lymph nodes. These could be reactive versus glo metastatic disease. I will go ahead and order MRI as recommended. She would also from biopsy if that is possible. I do not think I have anything else to offer terms of any endoscopic approach. (2) Hepatic lesion: Code(s): K76.9 - Liver disease, unspecified Status: Acute Assessment and Plan: This suggests the possibility of metastatic disease. Oncology may need to get involved (3) Disequilibrium: Code(s): R42 - Dizziness and giddiness Status: Acute Assessment and Plan: she is being investigated by Neurology and so far nothing acute has been found. (4) Crohn's disease, unspecified, with unspecified complications: Code(s): K50.919 - Crohn's disease, unspecified, with unspecified complications Status: Acute Assessment and Plan: She is under the care of Dr. Pride for years. She states that periodically she would be placed on Pentasa but she has not had any flare ups required medication for a few years and has not seen anyone since he retired about 3 years ago. Plan I will go ahead and order the MRI. Surgical consult would be helpful GI Consult Note Consult date/time: 06/27/23 09:27 HPI: Izzy Ward is a 77 year old female was admitted because of a change in her mental status also be coming unsteady on her feet. She states that her family told her that she was acting funny she has been seen by Neurology and had CT scan and MRI. No acute changes were found but it was noted that she has extensive microvascular changes. She also has a history of Crohn's disease which has been inactive for several years. I am asked to see her because of an abnormal CT scan which showed a possible gallbladder mass. She states she has not had any gastrointestinal issues such as nausea or vomiting. She also denies abdominal pain or loss of appetite. There has been no recent diarrhea or blood in the stools suggest any Crohn's disease activity. Review of Systems Review of Systems: All systems reviewed & are unremarkable except as noted in HPI and below PMFSH Past Medical History Medical History Abnormal colonoscopy 09/04 ileitis Allergies Arthritis History of Crohn's disease History of hypertension NSTEMI (non-ST elevated myocardial infarction) (05/2023) Osteoporosis Skin cancer Surgical History Surgical History History of abdominal surgery Adhesiolysis History of appendectomy (~1956) History of bilateral tubal ligation (~1974) History of lumbar surgery (11/2022) History of partial colectomy (2010) Status post lumbar spine surgery for decompression of spinal cord Family History Family History Father Diabetes m
--- NOTE | 2023-06-27 09:54 | WPDNEUROPN ---
Progress Note: A&P Assessment and Plan (1) Disequilibrium: Code(s): R42 - Dizziness and giddiness Status: Acute (2) UTI (urinary tract infection): Code(s): N39.0 - Urinary tract infection, site not specified Status: Acute (3) Carotid stenosis: Code(s): I65.29 - Occlusion and stenosis of unspecified carotid artery Status: Acute Plan Izzy Ward is a 77 year old female? with a history of Crohn's disease, NSTEMI, skin cancer, HTN presenting due to feeling off balance, disequilibrium. She seems to have several causes for her symptoms such as recent drop in hgb due to undetermined source as well possible UTI. MRI brain negative for central cause. CTA brain/carotid showed severe stenosis of proximal R ICA, which may be contributing to her symptoms as well. She is already on DAPT and a statin, which should be continued. - Recommend close vascular surgery follow-up as outpatient. Subjective Date/time seen: 06/27/23 09:54 Interval history: \ Izzy Ward is a 77 year old female? with a history of Crohn's disease, NSTEMI, skin cancer, HTN presenting due to feeling off balance, disequilibrium. Patient reports feeling off balance for the past 3-4 days. Symptoms seem to be worse with walking. She did have a fall about three days ago when she tripped and fell agains a wall. Family also feels that she has been more disoriented and slow to respond over the past four days. They have also noted blood in her urine. Patient reports decreased PO intake as well. She presented to [place] ED on 06/25. CT head was unrevealing. Blood pressure was in the 120s systolic with 40-50s diastolic. Orthostatic vitals in the ED were reportedly negative. Her EKG showed normal sinus rhythm. CT head showed no acute changes. UA showed trace LE, 0-5 WBC, and 1+ bacteria. Hgb is 9.9 (which is a drop from a week ago when it was 11.5). Patient received IV fluids, had ear irrigation, meclizine, but continued to have symptoms so she was subsequently admitted. She has been started on Rocephin presumably for possible UTI. Her current medications include aspirin, Plavix, and Crestor. She also takes lorazepam 1mg qhs. MRI brain was negative for acute stroke. CTA brain/carotid showed 95% stenosis of the proximal R ICA and 10% stenosis of the proximal L ICA, as well as low to moderate stenosis in the cavernous portion of distal ICA. Blood pressure has been in the 130-150s systolic. LDL level from 06/18/23 is 56. Review of Systems Review of Systems: All systems reviewed & are unremarkable except as noted in HPI and below Exam Const: General: comfortable and no acute distress HENMT: Mouth: Yes moist mucous membranes Eyes: Pupils: Equal, round and reactive pupils present EOM: EOMs intact bilaterally Resp: Effort & Inspection: normal respiratory effort Skin: General skin exam: normal color Neuro: Other: AOx3, Pupils equal and reactive bilaterally, EOMI, face symmetric, facial sensation intact, tongue protrudes midline, palate midline. Shoulder shrug normal. Strength 5/5 throughout. Sensation intact throughout. FNF normal bilaterally. Language comprehension and fluency intact. Gait deferred. Extrem: General: normal to inspection Psych: Mental Status: mental status grossly normal Affect: normal affect Objective Data Vital Signs Vital Signs: Vital Signs - 24 hr 06/26/23 10:35 06/26/23 10:38 06/26/23 10:30 Temperature Pulse Rate 64 62 Respiratory Rate 18 Blood Pressure 146/60 H Pulse Oximetry 98 Oxygen Delivery Room Air 06/26/23 12:00 06/26/23 14:00 06/26/23 14:30 Temperature 36.5 C Pulse Rate 54 L 66 Respiratory Rate 16 Blood Pressure 142/62 H Pulse Oximetry 97 Oxygen Delivery Room Air 06/26/23 16:00 06/26/23 20:18 06/26/23 20:00 Temperature 36.9 C Pulse Rate 63 60 Respiratory Rate 20 Blood Pressure 136/54 L 136/54 L Pulse Oximetry 100 Oxygen Delivery
[2023-06-27 10:31] LABS: IFOB Positive Control Positive; Immunochemical Fecal Occult Bl Positive (N)
[2023-06-27] MEDS: METOPROLOL SUCCINATE EXT REL 25 MG TABCR PO (11:36)
[2023-06-27] MEDS: ASPIRIN 81 MG CHEWABLE TABLET PO (11:36)
[2023-06-27] MEDS: CLOPIDOGREL BISULFATE 75 MG TABLET PO (11:36)
[2023-06-27] MEDS: ROSUVASTATIN 10 MG TABLET PO (11:37)
[2023-06-27] MEDS: FAMOTIDINE 10 MG TABLET PO (11:37)
[2023-06-27] MEDS: MULTIVITAMINS /C LUTEIN (CENTRUM SILVER) TABLET *BKC 1 TAB PO (11:37)
[2023-06-27] MEDS: lisinopriL 20 MG TABLET PO (11:37)
--- NOTE | 2023-06-27 12:39 | PM.IMPN ---
Progress Note: A&P Assessment and Plan (1) Disequilibrium: Code(s): R42 - Dizziness and giddiness Status: Acute Assessment and Plan: Last echocardiogram was 05/21/2023, LV systolic function mildly reduced estimated at 45-50% -continue telemetry monitoring -initiate fall precautions -neurology consult appreciate recommendation and plan -spoke with Neurology, plan to have patient follow up outpatient for 95% stenosis proximal right internal carotid artery - Viral swabs negative. EKG with NSR, no ischemic changes. (2) Confusion: Code(s): R41.0 - Disorientation, unspecified Status: Acute Assessment and Plan: See above (3) Anemia: Qualifiers: Anemia type: unspecified type Qualified Code(s): D64.9 - Anemia, unspecified Code(s): D64.9 - Anemia, unspecified Status: Acute Assessment and Plan: Hemoglobin is 9.9 -repeat BMP in the a.m. -continue to monitor H&H Q 6 x 2 -transfuse PRBC if hemoglobin< 8 -collect stool occult specimen (4) UTI (urinary tract infection): Code(s): N39.0 - Urinary tract infection, site not specified Status: Acute Assessment and Plan: Urinalysis with trace ketones, trace leuk esterase, 6-10 RBC, no WBC.? Squamous cells noted.? Will send for culture.? -deescalate antibiotics when urine culture results -continue monitor I&O -use pure wick at HS (5) Cholecystitis: Code(s): K81.9 - Cholecystitis, unspecified Status: Acute Assessment and Plan: -as evidenced by CT Appreciate general surgery recommendation and plan -plan to have patient transferred to [facility] Mild transaminitis and elevation of alk-phos which also appear to be new from previous records.? Patient denying any abdominal pain. No RUQ tenderness. (6) Hepatic lesion: Code(s): K76.9 - Liver disease, unspecified Status: Acute Assessment and Plan: 1.3 cm indeterminate hypodense hepatic lesion, as evidenced by CT findings, per report Given findings in the gallbladder, metastasis is certainly a consideration radiology is recommending. pre and postcontrast MR be considered to further evaluate, versus attempted tissue sampling. -GI and General surgery aware , pt would benefit further treatment at another facility that can offer services with metastatic disease -initiated transfer to [facility] per pt request Subjective Date/time seen: 06/27/23 12:39 Interval history: Mrs. Ward is a 77-year-old female, with a past medical history Crohn's disease, hypertension, NSTEMI, osteoporosis and skin cancer who presents the ED with report of dizziness, unsteady gait.? Patient reports she has been feeling slightly dizzy/lightheaded, feeling off balance intermittently for the last 3-4 days.? Pt provides the following hx: Patient reports she has been feeling slightly dizzy/lightheaded, feeling off balance intermittently for the last 3-4 days.? She Worse with movement/walking/ambulating. Pt was recently seen and treated at this hospital and is admitted to this hospital 06/18/24 with c/o ongoing chest pain. 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 ? Patient admits her last fall was prior to last admission she denies any new falls, trauma or injury at this time, she admits to ongoing mild fatigue, decreased appetite.? 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 Pt does reports feeling like she is off balance when she is ambulating.? She any denies focal weakness, numbness, headaches, vision changes, abdominal pain, nausea, vomiting, dysuria, fevers, cough or cold symptoms.? ED workup: CT head was unrevealing. Blood pressure was in th
--- NOTE | 2023-06-27 14:47 | PM.CNGS ---
Assessment and Plan Assessment and plan (1) Mass of neck of gallbladder: Code(s): K82.8 - Other specified diseases of gallbladder Status: Acute Assessment and Plan: CT scan suspicious for a 3 cm neoplasm in the neck of the gallbladder. Ultrasound of the gallbladder as well as MRCP have been done but not read as yet. Clinically, it does not appear she has cholecystitis. Unless the MRCP and/or ultrasound can disprove this gallbladder lesion is a potential neoplasm, she should be seen by an hepatobiliary surgeon for treatment. There is also a lesion in the liver that could suggest metastasis. This type of resection can include a liver resection and requires hepatobiliary expertise with all modes of treatment. I discussed this with Lizz Sexton APRN, and I have recommended that the patient be transferred as she has not only a potential neoplasm of the gallbladder but also a 95% stenosis of the right internal carotid artery. We are not equipped to address either of these problems. Even if the gallbladder lesion is shown by MRCP and ultrasound to be a stone, gallbladder surgery cannot be done while patient has the severe stenosis of the right internal carotid artery. (2) Hepatic lesion: Code(s): K76.9 - Liver disease, unspecified Status: Acute Assessment and Plan: Discussed above. With gallbladder findings, could be a metastasis. (3) Carotid stenosis: Qualifiers: Laterality: right Qualified Code(s): I65.21 - Occlusion and stenosis of right carotid artery Code(s): I65.29 - Occlusion and stenosis of unspecified carotid artery Status: Chronic Assessment and Plan: CTA was reviewed personally. There is a very high-grade right internal carotid artery stenosis. This would have to be alleviated either by surgery or endovascular treatment. No one will undertake other abdominal surgery, such as gallbladder resection, until this is rectified. Apparently, this stenosis is not felt to be the cause of her current symptoms per neurology. (4) CAD (coronary artery disease): Onset Date: 05/2023 Qualifiers: Coronary Disease-Associated Artery/Lesion type: [place] posta artery Associated angina: without angina Code(s): I25.10 - Atherosclerotic heart disease of [place] posta coronary artery without angina pectoris Status: Chronic (5) Presence of coronary artery bypass graft stent: Onset Date: 05/2023 Code(s): Z95.5 - Presence of coronary angioplasty implant and graft; Z95.1 - Presence of aortocoronary bypass graft Status: Acute Assessment and Plan: Placed 05/21/2023, takes Plavix and aspirin. (6) Peripheral arterial disease: Code(s): I73.9 - Peripheral vascular disease, unspecified Status: Chronic Assessment and Plan: Nothing severe. Left leg SHIVAM is 0.7 which is in the claudication range but not any risk for limb loss. Continued evidence of vasculopathy. (7) Crohn's disease, unspecified, with unspecified complications: Code(s): K50.919 - Crohn's disease, unspecified, with unspecified complications Status: Chronic Assessment and Plan: Crohn's disease carries increased risk of gallbladder cancer making this diagnosis more worrisome. History of Present Illness Consult details Consult date: 06/27/23 Reason for consult: gallstones Requesting physician: Lizz Sexton, KHADIJAH Narrative: The patient is a 77-year-old woman who was in the hospital here on May 21, 2023 with chest pain and acute coronary syndrome. She had cardiac catheterization and eventual stenting of a 95% RCA lesion. She came back in on the 19 of June with chest pain but this turned out to be chest wall pain. Patient has been taking Plavix and aspirin due to her recent coronary stent. She came to the emergency room on 06/25/2023 for dizziness, gait disturbance, and periods of confusion and disorientation. No focal neurologic findings w
--- NOTE | 2023-06-27 17:25 | PM.TDS ---
Transfer Discharge Sum: Prov Provider Date of admission: 06/27/23 13:48 Primary care physician: Venkata Sullivan MD Admitting clinician: Daniela Avilez DO Consults: 06/26/23 01:07 Consult to Physician Routine Comment: Consulting Provider: Kelley Ohara Reason for consultation: Disequilibrium, disorientation, confusion Has provider been notified: Yes 06/26/23 08:07 Care Coordination Consult Routine Comment: Reason for Consult:: Group Home Placement 06/26/23 17:36 Consult to Physician Routine Comment: spoke with provider at 1855 06/26/23, CR Consulting Provider: Tobias Powers call out clerk/MD group to consult: GI Reason for consultation: Abdomen pelvis CT reveals acute cholecystitis Has provider been notified: Yes 06/26/23 17:40 Consult to Physician Routine Comment: spoke with MD at [address] Consulting Provider: Roni Rivas call out clerk/MD group to consult: general surgery Reason for consultation: Acute cholecystitis Has provider been notified: Yes 06/27/23 Care Coordination Consult Routine Comment: Reason for Consult:: Acute Rehab Consult Transfer Discharge Sum: Med Medications Active and Home Medications: Home Medications famotidine 10 mg tablet (Zantac-360 (famotidine)) 10 mg PO DAILY 08/03/22 [History Confirmed 06/26/23] vemwcmgq-kks-bpseg acid 200 mcg-collagen, hydrolyzed 25 mg chew tablet (Women's Multivitamin with Collagen) 1 tablet PO DAILY 08/03/22 [History Confirmed 06/26/23] vitamin C 50 mg-biotin 1,250 mcg chewable tablet (Yjde-Umaj-Cpret (vit C-biotin)) 1 tablet PO DAILY 11/06/22 [History Confirmed 06/26/23] lorazepam 1 mg tablet 1 mg PO HS #90 tabs 04/02/23 [Rx Confirmed 06/26/23] aspirin 81 mg chewable tablet (Children's Aspirin) 81 mg PO DAILY@0800 #30 tabs 05/22/23 [Rx Confirmed 06/26/23] rosuvastatin 10 mg tablet (Crestor) 10 mg PO DAILY #30 tabs 05/22/23 [Rx Confirmed 06/26/23] oxycodone 10 mg tablet 10 mg PO QID PRN pain #100 tabs 06/10/23 [Rx Confirmed 06/26/23] nitroglycerin 0.4 mg sublingual tablet (Nitrostat) 0.4 mg sublingual Q5MIN PRN Chest Pain #25 tabs 06/19/23 [Rx Confirmed 06/26/23] metoprolol succinate 25 mg tablet,extended release 24 hr (Toprol XL) 25 mg PO QAM #90 tabs 06/24/23 [Rx Confirmed 06/26/23] clopidogrel 75 mg tablet 75 mg PO DAILY #90 tabs 06/25/23 [Rx Confirmed 06/26/23] lisinopril 20 mg tablet 20 mg PO DAILY #90 tabs 06/25/23 [Rx Confirmed 06/26/23] Active Medications Aspirin (Aspirin 81 Mg Chewable Tablet) 81 mg PO DAILY@0800 [facility] Last Admin: 06/27/23 11:36 Dose: 81 mg Clopidogrel Bisulfate (Clopidogrel Bisulfate 75 Mg Tablet) 75 mg PO DAILY [facility] Last Admin: 06/27/23 11:36 Dose: 75 mg Famotidine (Famotidine 10 Mg Tablet) 10 mg PO DAILY [facility] Last Admin: 06/27/23 11:37 Dose: 10 mg Ceftriaxone Sodium (Rocephin 1 Gm/Ns 50 Ml) 1 gm in 50 mls @ 100 mls/hr IVPB Q24H [facility] Last Infusion: 06/27/23 12:32 Dose: Infused Lisinopril (Lisinopril 20 Mg Tablet) 20 mg PO DAILY [facility] Last Admin: 06/27/23 11:37 Dose: 20 mg Lorazepam (Lorazepam (*Crx) 1 Mg Tablet) 1 mg PO HS [facility] Last Admin: 06/26/23 21:16 Dose: 1 mg Metoprolol Succinate (Metoprolol Succinate Ext Rel 25 Mg Tabcr) [facility] Admin: 06/27/23 11:36 Dose: 25 mg Multivitamins/Minerals (Multivitamins /C Lutein (Centrum Silver) Tablet *Bkc) 1 tab PO DAILY [facility] Stop: 07/26/23 08:59 Last Admin: 06/27/23 11:37 Dose: 1 tab Nitroglycerin (Nitroglycerin Sl 0.4 Mg Tablet) 0.4 mg SUBLINGUAL Q5MIN PRN PRN Reason: Chest Pain Rosuvastatin Calcium (Rosuvastatin 10 Mg Tablet) 10 mg PO DAILY [facility] Last Admin: 06/27/23 11:37 Dose: 10 mg Transfer Discharge Sum: Hosp Hospital Course Hospital course: Izzy Ward is a 77 year old female Time Spent with Patient Time attestation: Total time spent providing and/or coordinating transfer services: DS: Data Data Completed and Pending Labs on day of discharge: Labs from last 24 hours 06/27
--- NOTE | 2023-06-27 17:27 | PM.EVENT ---
Event Note Event Note Event Note: -pt reports she would like to be transferred to [facility] as recommended by general surgeon for vascular surgery. -initiated transfer request to [facility] line spoke with Gina ortiz at this time vascular surgery will accept patient, general surgery has not yet accepted patient we are having trouble with imaging push to [facility]. I called spoke with Radiology Department who is working on resubmitting views. At this time general surgery is in progress with another surgery 1734. Patient is stable resting comfortably with no acute pain, fever chills nausea vomiting. Her blood pressure is slightly elevated at 160/42 pulse is 73, respiration 14. on RA 100% -originally patient was going to follow-up with vascular surgery outpatient, myself and general surgeon would like for patient to be transferred, due to concern with abdominal CT reading and findings of gallbladder Mets and liver lesion. Patient will likely be here overnight she is in stable condition, will continue transfer attempts in the a.m. Please alert overnight attending with any concerns, continue all therapies/and medications as ordered.
[2023-06-27] MEDS: LORazepam (*CRX) 1 MG TABLET PO (20:29)
[2023-06-28] VITALS (8 sets, daily range): BP systolic 127–152; BP diastolic 37–39; PULSE 57–71; RESP 14–18; TEMP 36.6–36.8; O2SAT 99–100
[2023-06-28 06:13] LABS: Basophils Percent Auto 0.3 % (0.2-1.2); Eosinophils Absolute Auto 0.1 K/mm3 (0-0.3); Eosinophils Percent Auto 0.9 % (0-4.4); Hematocrit 32.5 % (37.0-47.0); Hemoglobin 10.1 g/dL (12.0-15.0); Immature Granulocyte Absolute 0.07 K/mm3 (0.00-0.031); Immature Granulocyte Percent A 0.6 % (0-0.5); Lymphocytes Absolute Auto 1.24 K/mm3 (0.9-3.2); Lymphocytes Percent Auto 9.8 % (18.3-44.2); Mean Corpuscular HGB Conc 31.1 g/dl (32-36); Mean Corpuscular Volume 93.4 fl (80-100); Mean Platelet Volume 8.3 fl (7.4-10.4); Monocytes Absolute Auto 0.7 K/mm3 (0.1-0.6); Monocytes Percent Auto 5.8 % (2.6-8.5); Neutrophils Absolute Auto 10.5 K/mm3 (1.3-6.7); Neutrophils Percent Auto 82.6 % (45.5-73.1); Platelet Count Result 571 k/mm3 (150-375); Red Blood Count 3.48 M/mm3 (4.2-5.4); Red Cell Distribution Width 13.8 % (11.5-14.5); White Blood Count 12.7 K/mm3 (4.5-10.0)
[2023-06-28 06:34] LABS: Alanine Aminotransferase 36 U/L (6-35); Albumin Level 3.1 g/dL (3.5-5.1); Alkaline Phosphatase 193 U/L (38-126); Anion Gap 9 mmol/L (8-16); Aspartate Amino Transferase 36 U/L (14-36); Bilirubin,Total 0.7 mg/dL (0.2-1.3); Blood Urea Nitrogen 7 mg/dL (7-17); Calcium 8.6 mg/dL (8.4-10.2); Carbon Dioxide 23 mmol/L (22-30); Chloride 108 mmol/L (98-107); Estimated CRCL calculation 42 ml/min; Estimated Glomerular Filt Rate > 60; Glucose 106 mg/dL (65-110); Potassium 3.6 mmol/L (3.4-5.0); Sodium 140 mmol/L (137-145)
[2023-06-28] MEDS: METOPROLOL SUCCINATE EXT REL 25 MG TABCR PO (09:59)
[2023-06-28] MEDS: FAMOTIDINE 10 MG TABLET PO (09:59)
[2023-06-28] MEDS: lisinopriL 20 MG TABLET PO (09:59)
[2023-06-28] MEDS: CLOPIDOGREL BISULFATE 75 MG TABLET PO (09:59)
[2023-06-28] MEDS: ROSUVASTATIN 10 MG TABLET PO (09:59)
[2023-06-28] MEDS: ASPIRIN 81 MG CHEWABLE TABLET PO (09:59)
[2023-06-28] MEDS: MULTIVITAMINS /C LUTEIN (CENTRUM SILVER) TABLET *BKC 1 TAB PO (09:59)
--- NOTE | 2023-06-28 13:12 | PM.TDS ---
Transfer Discharge Sum: Prov Provider Date of admission: 06/27/23 13:48 Primary care physician: Venkata Sullivan MD Admitting clinician: Daniela Avilez DO Consults: 06/26/23 01:07 Consult to Physician Routine Comment: Consulting Provider: Kelley Ohara Reason for consultation: Disequilibrium, disorientation, confusion Has provider been notified: Yes 06/26/23 08:07 Care Coordination Consult Routine Comment: Reason for Consult:: Senior Living Placement 06/26/23 17:36 Consult to Physician Routine Comment: spoke with provider at 1855 06/26/23, CR Consulting Provider: Tobias Powers air analysis engineering technician/MD group to consult: GI Reason for consultation: Abdomen pelvis CT reveals acute cholecystitis Has provider been notified: Yes 06/26/23 17:40 Consult to Physician Routine Comment: spoke with MD at [address] Consulting Provider: Roni Rivas air analysis engineering technician/MD group to consult: general surgery Reason for consultation: Acute cholecystitis Has provider been notified: Yes 06/27/23 Care Coordination Consult Routine Comment: Reason for Consult:: Acute Rehab Consult Discharging clinician: Lizz Sexton Anticipated date of transfer: 06/28/23 Receiving physician/facility: [place], [place]/ Dr. Mishra accepted pt. Would like pt to be admitted to complex surgery unit. DS: Admitting Diagnosis Discharge Date 06/28/2023 Admitting Diagnosis Disequilibrium DS: Discharge Diagnosis Discharge Diagnosis (1) Disequilibrium: Code(s): R42 - Dizziness and giddiness Status: Acute Assessment and Plan: Last echocardiogram was 05/21/2023, LV systolic function mildly reduced estimated at 45-50% -continue telemetry monitoring -initiate fall precautions -neurology consult appreciate recommendation and plan -original plan with Neurology,was to have pt follow up outpatient, for 95% stenosis proximal right internal carotid artery, now pt will be transferred to [facility] for vascular surgery priority due to findings of abnormal CT - Viral swabs negative. EKG with NSR, no ischemic changes. (2) Confusion: Code(s): R41.0 - Disorientation, unspecified Status: Acute Assessment and Plan: See above (3) Anemia: Qualifiers: Anemia type: unspecified type Qualified Code(s): D64.9 - Anemia, unspecified Code(s): D64.9 - Anemia, unspecified Status: Acute Assessment and Plan: Hemoglobin is 10.1 -continue to monitor H&H Q 6 -transfuse PRBC if hemoglobin< 8 -stool occult is positive (4) UTI (urinary tract infection): Qualifiers: Hematuria presence: without hematuria Code(s): N39.0 - Urinary tract infection, site not specified Status: Acute Assessment and Plan: Urinalysis with trace ketones, trace leuk esterase, 6-10 RBC, no WBC.? Squamous cells noted.? Will send for culture.? -d/c ceftriaxone, urine culture final is negative -continue monitor I&O -use pure wick at HS (5) Cholecystitis: Code(s): K81.9 - Cholecystitis, unspecified Status: Acute Assessment and Plan: -as evidenced by CT Appreciate general surgery recommendation and plan -plan to have patient transferred to [facility] Mild transaminitis and elevation of alk-phos which also appear to be new from previous records.? Patient denying any abdominal pain. No RUQ tenderness, she did have n/v this a.m after she was given her morning medication (6) Hepatic lesion: Code(s): K76.9 - Liver disease, unspecified Status: Acute Assessment and Plan: 1.3 cm indeterminate hypodense hepatic lesion, as evidenced by CT findings, per report Given findings in the gallbladder, metastasis is certainly a consideration radiology is recommending. pre and postcontrast MR be considered to further evaluate, versus attempted tissue sampling. -GI and General surgery aware , pt would benefit further treatment a
[2023-06-28] MEDS: LACTATED RINGERS 1,000 ML 75 ML IV CONT (14:18)
[2023-06-28 16:24] LABS: Lipase 241 U/L (23-300)
[2023-06-28] MEDS: oxyCODONE HCL (*CRX) 5 MG TAB IR 10 MG PO (16:55)
--- NOTE | 2023-06-28 17:05 | PM.PNGS ---
Progress Note: A&P Assessment and Plan (1) Mass of neck of gallbladder: Code(s): K82.8 - Other specified diseases of gallbladder Status: Acute Assessment and Plan: In contrast to the CT scan done the day of admission, the MRCP and the ultrasound indicate that this is an impacted stone in the neck of the gallbladder. Is cholecystitis is also reported. Patient seems to be responding to antibiotics. She does still have some right upper quadrant tenderness but no pain and is tolerating oral intake. (2) Cholecystitis: Code(s): K81.9 - Cholecystitis, unspecified Status: Acute Assessment and Plan: As noted on imaging. Seems to be improving with antibiotics, ceftriaxone. (3) Carotid stenosis: Qualifiers: Laterality: right Qualified Code(s): I65.21 - Occlusion and stenosis of right carotid artery Code(s): I65.29 - Occlusion and stenosis of unspecified carotid artery Status: Chronic Assessment and Plan: Would not operate on patient until carotid stenosis is treated. Patient agreeable to transfer. She does not want to go to [facility] but would be okay with [facility]. Recommend transfer for treatment of carotid high-grade stenosis followed by treatment of cholecystitis. (4) Disequilibrium: Code(s): R42 - Dizziness and giddiness Status: Acute Assessment and Plan: Improved per patient report. Walking with a walker. (5) Presence of coronary artery bypass graft stent: Onset Date: 05/2023 Code(s): Z95.5 - Presence of coronary angioplasty implant and graft; Z95.1 - Presence of aortocoronary bypass graft Status: Acute Assessment and Plan: Placed May 21, 2023. Subjective Subjective Date/Time Seen: 06/28/23 17:05 Patient reports: feels better, pain is less, tolerating a regular diet and afebrile Interval history: Denies any abdominal pain. No nausea. Eating healthy diet without difficulty. Balance improved and dizziness improved Review of Systems Review of Systems: All systems reviewed & are unremarkable except as noted in HPI and below (HPI) Exam Const: General: comfortable and no acute distress Orientation/consciousness: patient oriented x3 GI: Inspection: normal to inspection and non-distended GI Palp: Yes Soft to palpation, Yes Tenderness to palpation present (GI) (Right upper quadrant, no peritoneal signs), No Guarding due to palpation present (GI), No Hernia present, No Palpable mass present and No Rebound tenderness present Auscultation: normoactive bowel sounds Neuro: General: patient oriented x3 and no focal motor deficits Extrem: General: no calf tenderness and no edema Psych: Affect: normal affect Insight: Good insight present (Psych) Judgement: Good judgement present (Psych) Objective Data Vital Signs Vital Signs: Vital Signs - 24 hr 06/27/23 19:58 06/27/23 20:01 06/27/23 20:03 Temperature 36.8 C 36.9 C 36.9 C Pulse Rate 60 58 L 63 Respiratory Rate 18 18 18 Blood Pressure 140/34 L 140/44 L 145/48 H Pulse Oximetry 99 100 100 Oxygen Delivery 06/27/23 20:00 06/27/23 22:00 06/27/23 20:00 Temperature 36.8 C Pulse Rate 59 L 58 L Respiratory Rate 18 Blood Pressure 134/37 L Pulse Oximetry 99 Oxygen Delivery Room Air 06/28/23 00:00 06/28/23 04:00 06/28/23 06:00 Temperature 36.8 C Pulse Rate 59 L 63 57 L Respiratory Rate 18 Blood Pressure 127/39 L Pulse Oximetry 99 Oxygen Delivery 06/28/23 09:59 06/28/23 08:00 06/28/23 08:00 Temperature Pulse Rate 64 65 Respiratory Rate Blood Pressure Pulse Oximetry Oxygen Delivery Room Air 06/28/23 12:00 06/28/23 14:00 Temperature 36.6 C Pulse Rate 59 L 58 L Respiratory Rate 14 Blood Pressure 152/37 H Pulse Oximetry 100 Oxygen Delivery Intake/Output Intake/Output: Intake & Output 06/25/23 06/26/23 06/27/23 06/28/23 23:59 23:59 23:59 23:59 Intake
--- NOTE | 2023-06-28 19:29 | PC.NURSE ---
report called to Jeanette HARMON at [facility], reviewed health history and plan of care, ambulance transport arranged
== END 2023-06-28 19:50 | disposition short-term general hospital (02) | DRG 68 ==
LOC: ANHED 20:29 → ANH2MED 06-26 01:08
PROVIDERS: Emergency Medicine; Admitting Provider Internal Medicine; Emergency Provider Physician Assistant; PCP Family Medicine Adolescent Medicine; Visit Provider Nurse Practitioner
DX: I65.23 Occlusion and stenosis of bilateral carotid arteries (principal); K50.90 Crohn's disease, unspecified, without complications; K80.00 Calculus of gallbladder with acute cholecystitis without obstruction; R42 Dizziness and giddiness; R41.0 Disorientation, unspecified; E87.8 Other disorders of electrolyte and fluid balance, not elsewhere classified; D64.9 Anemia, unspecified; K76.9 Liver disease, unspecified; M81.0 Age-related osteoporosis without current pathological fracture; E87.6 Hypokalemia; I10 Essential (primary) hypertension; M19.90 Unspecified osteoarthritis, unspecified site; Z20.822 Contact with and (suspected) exposure to COVID-19; I25.2 Old myocardial infarction; Z85.828 Personal history of other malignant neoplasm of skin; Z90.49 Acquired absence of other specified parts of digestive tract; Z98.1 Arthrodesis status; Z87.891 Personal history of nicotine dependence; Z79.82 Long term (current) use of aspirin; Z79.02 Long term (current) use of antithrombotics/antiplatelets; Z95.5 Presence of coronary angioplasty implant and graft; Z95.1 Presence of aortocoronary bypass graft
CPT/HCPCS: 36415; 70450; 70496; 70498; 70553; 73110; 74177; 74183; 76376; 76705; 80053; 81001; 82274; 83690; 83735; 84443; 85014; 85018; 85025; 87086; 87088; 87637; 93005; 96361; 97161; 99285; A9270; A9577; G0378; J0696; J7030; J7120; Q9967

== ENCOUNTER 2023-07-24 14:12 | Emergency (ER) | payer MEDICARE, BC, SELFPAY ==
[2023-07-24] VITALS (13 sets, daily range): BP systolic 110–138; BP diastolic 41–86; PULSE 43–82; RESP 12–21; TEMP 37.3; O2SAT 96–100
--- NOTE | ~2023-07-24 | US_ITS ---
EXAMINATION: US venous doppler [facility] DATE: 07/24/2023 17:34 INDICATION: leg swelling . TECHNIQUE: Grayscale images without and with compression and Doppler images of the bilateral lower ex tremity veins were obtained. COMPARISON: None FINDINGS: The right common femoral vein, profunda (deep) femoral vein, femoral vein, popliteal vein, peroneal v ein, posterior tibial veins, and greater saphenous vein are patent. The left common femoral vein, profunda (deep) femoral vein, femoral vein, popliteal vein, peroneal v ein, posterior tibial veins, and greater saphenous vein are patent. IMPRESSION: Patent bilateral lower extremity veins. No evidence of deep venous thrombosis. Reviewed, dictated and finalized at location K. [employer] PHLEBOTOMY INSTRUCTOR
--- NOTE | 2023-07-24 15:03 | ED.EXTPRO ---
HPI - Extremity Problem General Chief complaint: Extremity Problem,Nontraumatic Stated complaint: leg swelling Time Seen by Provider: 07/24/23 14:47 History of Present Illness HPI Narrative: 77-year-old female presenting to the emergency department evaluation of lower extremity swelling. Patient did have some cardiac stents placed in May. Patient states she has had leg swelling for the last 5 months. Patient does take aspirin and Plavix. Patient denies any chest pain or shortness of breath. Patient denies any prior history of PE or DVT. Patient denies any prior history of cellulitis. Patient denies any falls or injuries. Related Data Home Medications Medication Instructions Recorded Confirmed hispsqee-hlm-tlgxu acid 200 1 tablet PO DAILY 08/03/22 07/08/23 mcg-collagen, hydrolyzed 25 mg chew tablet (Women's Multivitamin with Collagen) vitamin C 50 mg-biotin 1,250 mcg 1 tablet PO DAILY 11/06/22 07/08/23 chewable tablet (Neaw-Ymqx-Eygxy (vit C-biotin)) cephalexin 500 mg capsule 500 mg PO QID 07/08/23 07/08/23 fluconazole 100 mg tablet 100 mg PO .Q3days 07/08/23 07/08/23 sodium chloride 0.9 % (flush) 300 ml IV Q24H 07/08/23 07/08/23 (Normal Saline Flush 0.9 % injection syringe) Allergies Allergy/AdvReac Type Severity Reaction Status Date / Time leflunomide Allergy Intermediate HAND Verified 07/24/23 14:54 NUMBNESS Penicillins Allergy Mild HIVES Verified 07/24/23 14:54 adalimumab Allergy Unknown RASH Verified 07/24/23 14:54 azathioprine Allergy Unknown PANCREATITI Verified 07/24/23 14:54 S mercaptopurine Allergy Unknown Blister Verified 07/24/23 14:54 methotrexate Allergy Unknown Hives Verified 07/24/23 14:54 dexamethasone Allergy Swelling Verified 07/24/23 14:54 etanercept [From Enbrel] Allergy Anaphylactic Verified 07/24/23 14:54 Shock atorvastatin AdvReac Intermediate myalgias Verified 07/24/23 14:54 Opioids - Morphine Analogues AdvReac Intermediate Vomiting Verified 07/24/23 14:54 Review of Systems Review of Systems: All systems reviewed & are unremarkable except as noted in HPI and below PMFSH Past Medical History Medical History Abnormal colonoscopy 09/04 ileitis Allergies Arthritis History of Crohn's disease History of hypertension NSTEMI (non-ST elevated myocardial infarction) (05/2023) Osteoporosis Skin cancer Surgical History Surgical History History of abdominal surgery Adhesiolysis History of appendectomy (~1957) History of bilateral tubal ligation (~1974) History of lumbar surgery (11/2022) History of partial colectomy (2010) Status post lumbar spine surgery for decompression of spinal cord Family History Family History Father Diabetes mellitus Heart disease Heart problem Hx of CABG Hypertension Sibling Diabetes mellitus Heart problem Heart disease Social History Social History Social History: Pt has had 3 pregnancies, 1 miscarriage. Date of last mammogram was August of 2022. Recently . Smoking packs per day: 1 Smoking cigarettes per day: 20.0 Years smoked: 30 Smoking pack-years: 30.00 Smoking status: Former smoker Second hand tobacco smoke exposure: No Additional smoking assessment comments: in the process of quitting, cutting back significantly Alcohol intake: never Alcohol use details: ONE DRINK PER MONTH Substance use: never Substance use type: does not use Do You Feel Safe in your Home?: Yes Lack of Transportation: No Lack of Food: Never True Current Housing: I Have Housing Concerned About Future Housing: No Difficulty Paying Gas/Electric Bills: No Difficulty Paying for Meds: No Currently Unemployed: No Education: High School Diploma/GED Difficulty w/ Childcare or Family C
[2023-07-24 15:39] LABS: Basophils Percent Auto 0.2 % (0.2-1.2); Eosinophils Absolute Auto 0.1 K/mm3 (0-0.3); Eosinophils Percent Auto 1.2 % (0-4.4); Hematocrit 29.8 % (37.0-47.0); Hemoglobin 9.2 g/dL (12.0-15.0); Immature Granulocyte Absolute 0.03 K/mm3 (0.00-0.031); Immature Granulocyte Percent A 0.3 % (0-0.5); Lymphocytes Percent Auto 13.3 % (18.3-44.2); Mean Corpuscular HGB Conc 30.9 g/dl (32-36); Mean Corpuscular Hemoglobin 28.5 pg (26-34); Mean Corpuscular Volume 92.3 fl (80-100); Mean Platelet Volume 9.2 fl (7.4-10.4); Monocytes Absolute Auto 0.8 K/mm3 (0.1-0.6); Monocytes Percent Auto 9.2 % (2.6-8.5); Neutrophils Absolute Auto 6.8 K/mm3 (1.3-6.7); Neutrophils Percent Auto 75.8 % (45.5-73.1); Platelet Count Result 356 k/mm3 (150-375); Red Blood Count 3.23 M/mm3 (4.2-5.4); Red Cell Distribution Width 14.6 % (11.5-14.5)
[2023-07-24] MEDS: ACETAMINOPHEN 325 MG TABLET 650 MG PO (15:40)
[2023-07-24 15:49] LABS: INR 1.3
[2023-07-24 15:50] LABS: Partial Thromboplastin Time 43.7 SECONDS (22.3-36.8)
[2023-07-24 15:51] LABS: Alanine Aminotransferase 17 U/L (6-35); Albumin Level 3.3 g/dL (3.5-5.1); Alkaline Phosphatase 157 U/L (38-126); Anion Gap 7 mmol/L (8-16); Aspartate Amino Transferase 40 U/L (14-36); Bilirubin,Total 0.9 mg/dL (0.2-1.3); Blood Urea Nitrogen 9 mg/dL (7-17); Calcium 8.8 mg/dL (8.4-10.2); Carbon Dioxide 27 mmol/L (22-30); Chloride 101 mmol/L (98-107); Estimated CRCL calculation 37 ml/min; Estimated Glomerular Filt Rate > 60; Glucose 109 mg/dL (65-110); Sodium 135 mmol/L (137-145)
[2023-07-24 16:00] LABS: NT Pro B Type Natriuretic Pept 290 pg/mL (19.9-100)
== END 2023-07-24 18:24 | disposition home or self-care (01) ==
PROVIDERS: Emergency Provider Emergency Medicine; PCP Family Medicine Adolescent Medicine
DX: R60.0 Localized edema (principal); M79.604 Pain in right leg; I10 Essential (primary) hypertension; I25.2 Old myocardial infarction; K50.90 Crohn's disease, unspecified, without complications; M81.0 Age-related osteoporosis without current pathological fracture; M19.90 Unspecified osteoarthritis, unspecified site; F17.210 Nicotine dependence, cigarettes, uncomplicated; Z95.5 Presence of coronary angioplasty implant and graft; Z85.828 Personal history of other malignant neoplasm of skin; Z90.49 Acquired absence of other specified parts of digestive tract; Z79.82 Long term (current) use of aspirin; Z79.02 Long term (current) use of antithrombotics/antiplatelets
CPT/HCPCS: 36415; 80053; 83880; 85025; 85610; 85730; 93970; 99284; A9270

== ENCOUNTER 2023-12-12 13:50 | Emergency (ER) | payer MEDICARE, BC, SELFPAY ==
[2023-12-12 13:55] VITALS: BP 131/49; PULSE 59; RESP 16; TEMP 36.6; O2SAT 98
--- NOTE | 2023-12-12 14:31 | PC.NURSE ---
pt decided after speaking to daughter that she would leave this dept and go to facility that placed her drain
== END 2023-12-12 14:31 | disposition left against medical advice (07) ==
LOC: ANHED 14:57
PROVIDERS: PCP Family Medicine Adolescent Medicine
DX: T85.590A Other mechanical complication of bile duct prosthesis, initial encounter (principal)
CPT/HCPCS: 99199

== ENCOUNTER 2024-01-13 19:47 | Emergency (ER) | payer MEDICARE, BC, SELFPAY ==
--- NOTE | 2024-01-13 19:54 | ED.WOUNDLAC ---
HPI - Wound/Laceration General Chief Complaint: Wound/Laceration Stated Complaint: fall Time Seen by Provider: 01/13/24 19:54 Source: patient, RN notes reviewed and old records reviewed Mode of arrival: ambulatory Limitations: no limitations History of Present Illness HPI narrative: 78-year-old female to [facility] for complaint of skin tear with uncontrolled bleeding to right dorsal forearm. Patient states that she became dizzy and fell at home between her toilet and sink 2 days ago. Patient states that she called her primary care provider that day and that her PCP discontinued her lisinopril. Patient denies LOC or hitting her head during fall. Patient denies current dizziness, recent illness, pain. Patient takes daily aspirin. Patient's grandson accompanies patient to exam room. He states that he changed her bandage approximately 2 hours prior to arrival and that is already bleeding through. Patient able to ambulate to exam room with steady gait. Respirations even and nonlabored. Patient in no acute distress. Related Data Home Medications Medication Instructions Recorded Confirmed ugylotsc-bhk-qkeeb acid 200 1 tablet PO DAILY 08/03/22 01/13/24 mcg-collagen, hydrolyzed 25 mg chew tablet (Women's Multivitamin with Collagen) vitamin C 50 mg-biotin 1,250 mcg 1 tablet PO DAILY 11/06/22 01/13/24 chewable tablet (Comh-Hden-Nglbt (vit C-biotin)) aspirin 325 mg tablet,delayed 325 mg PO DAILY 12/15/23 01/13/24 release omeprazole 20 mg capsule,delayed 20 mg PO DAILY 12/15/23 01/13/24 release Allergies Allergy/AdvReac Type Severity Reaction Status Date / Time leflunomide Allergy Intermediate HAND Verified 01/13/24 19:53 NUMBNESS Penicillins Allergy Mild HIVES Verified 01/13/24 19:53 adalimumab Allergy Unknown RASH Verified 01/13/24 19:53 azathioprine Allergy Unknown PANCREATITI Verified 01/13/24 19:53 S mercaptopurine Allergy Unknown Blister Verified 01/13/24 19:53 methotrexate Allergy Unknown Hives Verified 01/13/24 19:53 dexamethasone Allergy Swelling Verified 01/13/24 19:53 etanercept [From Enbrel] Allergy Anaphylactic Verified 01/13/24 19:53 Shock atorvastatin AdvReac Intermediate myalgias Verified 01/13/24 19:53 Opioids - Morphine Analogues AdvReac Intermediate Vomiting Verified 01/13/24 19:53 Review of Systems Review of Systems: All systems reviewed & are unremarkable except as noted in HPI and below Constitutional: Constitutional: Reports no additional constitutional complaints Eyes: Eyes: Reports no additional eye complaints ENT: Reports system reviewed and no additional complaints, except as documented Cardiovascular: Cardiovascular: Reports no additional cardiovascular complaints, Denies chest pain and Denies dyspnea Respiratory: Respiratory: Reports no additional respiratory complaints, Denies cough and Denies dyspnea Musculoskeletal: Musculoskeletal: Reports no additional musculoskeletal complaints Integumentary/Breasts: Skin/Breast: Reports as per HPI and Reports wounds ( Skin tear to right mid dorsal forearm) Neurologic: Reports system reviewed and no additional complaints, except as documented Psychiatric: Psychiatric: Reports no additional psychiatric complaints [facility] Past Medical History Medical History Abnormal colonoscopy 09/04 ileitis Allergies Arthritis History of Crohn's disease History of hypertension NSTEMI (non-ST elevated myocardial infarction) (05/2023) Osteoporosis Skin cancer Surgical History Surgical History History of abdominal surgery Adhesiolysis History of appendectomy (~1956) History of bilateral tubal ligation (~1974) History of lumbar surgery (11/2022) History of partial colectomy (2010) Status post lumbar spine surgery for decompression of spinal cord Family History Family History (Reviewed 0
[2024-01-13 19:56] VITALS: BP 158/50; PULSE 79; RESP 18; TEMP 36.8; O2SAT 100
== END 2024-01-13 20:33 | disposition home or self-care (01) ==
PROVIDERS: Emergency Provider Nurse Practitioner Family
DX: S51.811A Laceration without foreign body of right forearm, initial encounter (principal); W19.XXXA Unspecified fall, initial encounter; M19.90 Unspecified osteoarthritis, unspecified site; K50.90 Crohn's disease, unspecified, without complications; I10 Essential (primary) hypertension; I25.2 Old myocardial infarction; M81.0 Age-related osteoporosis without current pathological fracture; Z85.828 Personal history of other malignant neoplasm of skin
CPT/HCPCS: 99213; G0463

== ENCOUNTER 2024-04-14 10:52 | Outpatient (CLI) | payer MEDICARE, BC, SELFPAY ==
--- NOTE | ~2024-04-14 | US_ITS ---
EXAMINATION: US thyroid DATE: 04/14/2024 11:13 INDICATION: Disorder of thyroid, unspecified. TECHNIQUE: Multiple ultrasound images of the thyroid were obtained. COMPARISON: None. FINDINGS: The right thyroid lobe measures 5.3 x 1.6 x 1.8 cm. The left thyroid lobe measures 5.7 x 2.1 x 2.0 c m. In the left thyroid lobe, there is a 14 mm solid, isoechoic, wider than tall nodule with smooth m argin and peripheral calcifications (TI-RADS TR4). In the right thyroid lobe, there is a 6 mm solid, hypoechoic, wider than tall nodule with smooth margin without echogenic foci (TR4). In the right thy roid isthmus, there is an 8 mm solid, hypoechoic, wider than tall nodule with smooth margin without e chogenic foci (TR4). IMPRESSION: 1. Small thyroid nodules. Thyroid ultrasound is recommended in one year. Reviewed, dictated and finalized at location A.
== END 2024-04-14 10:53 | disposition home or self-care (01) ==
PROVIDERS: PCP Family Medicine Adolescent Medicine; Visit Provider Family Medicine Adolescent Medicine
DX: E07.9 Disorder of thyroid, unspecified (principal)
CPT/HCPCS: 76536

== ENCOUNTER → 2024-12-19 16:19 | Outpatient (CLI) | payer MEDICARE, BC, SELFPAY ==
--- NOTE | ~2024-12-19 | XR_ITS ---
Right Hand Technique: PA, oblique, and lateral views were obtained. Clinical History: Pain Findings: No acute fracture or dislocation is seen. Osseous alignment is anatomic. There is moderate degenerative change of the interphalangeal joint of the thumb. Soft tissues are unremarkable. Impression: Moderate degenerative change of the interphalangeal joint of the thumb. Reviewed, dictated and finalized at location . Impression: Moderate degenerative change of the interphalangeal joint of the thumb.
--- NOTE | ~2024-12-19 | XR_ITS ---
Right wrist Technique: PA, oblique, lateral, and ulnar deviation views were obtained. Clinical History: Pain Findings: No acute fracture or dislocation is seen. Osseous alignment is anatomic. Joint spaces are p reserved. Soft tissues are unremarkable. Impression: Unremarkable right wrist radiographs. Reviewed, dictated and finalized at location . Impression: Unremarkable right wrist radiographs.
== END ==
LOC: EXPCRAD 16:21
PROVIDERS: PCP Nurse Practitioner Family; Visit Provider Nurse Practitioner Family
DX: M25.531 Pain in right wrist (principal); M19.041 Primary osteoarthritis, right hand
CPT/HCPCS: 73100; 73120

== ENCOUNTER 2025-05-04 12:45 | Outpatient (CLI) | payer MEDICARE, BC, SELFPAY ==
--- NOTE | ~2025-05-04 | US_ITS ---
EXAMINATION: US thyroid DATE: 05/04/2025 13:28 INDICATION: Nodules TECHNIQUE: Multiple ultrasound images of the thyroid were obtained. COMPARISON: April 14, 2024 FINDINGS: The right thyroid lobe measures 5.4 x 1.5 x 1.67 m cm. The left thyroid lobe measures 6.4 x 1.9 x 2.0 cm. 2 mm hypoechoic focus in the right lobe unchanged. In the midpole of the left lobe is a 1.4 x 1.2 x 1.0 cm solid nodule. These nodules are stable in size and overall appearance. IMPRESSION: 1. Bilateral nodules not grossly changed in the previous exam. RECOMMENDATION: Follow-up thyroid ultrasound with dated next exam on or about May 042025. Reviewed, dictated and finalized at location A. TACKER IMPRESSION: 1. Bilateral nodules not grossly changed in the previous exam. RECOMMENDATION: Follow-up thyroid ultrasound with dated next exam on or about 2025.
== END 2025-05-04 12:46 | disposition home or self-care (01) ==
LOC: MICIMG 12:46
PROVIDERS: PCP Nurse Practitioner Family; Visit Provider Family Medicine Adolescent Medicine
DX: E07.9 Disorder of thyroid, unspecified (principal)
CPT/HCPCS: 76536